=== PATIENT | male | born 1950 | race Caucasian/White ===

== ENCOUNTER 2024-05-16 09:56 | Outpatient (REF) | payer OTHER, SELFPAY | END 2024-05-16 09:57 | disposition home or self-care (01) | LOC: CF 09:56 | DX: Z13.89 Encounter for screening for other disorder (principal) ==

== ENCOUNTER 2024-06-07 10:25 | Outpatient (AMB) | payer OTHER, SELFPAY ==
--- NOTE | 2024-06-07 10:43 | A.OFFVIS_ITS ---
Vital Signs 06/07/24 10:52 Height 6 ft 3 in Weight 236 lb 15.951 oz BMI 29.6 BP 128/67 Blood Pressure Location Rt brachial Position Sitting Pulse 67 Pulse Source Doppler Pulse Oximetry (%) 97 Oxygen Delivery Method Room Air Intake Visit Reasons: asbestosis Allergies No Known Allergies Allergy (Verified 06/07/24 10:55) HPI HPI asbestosis: Details: 73-year-old gentleman, former approximately 20 pack-year smoker, quit over 30 years prior with underlying history of asbestos exposure in the [place] and known asbestosis on CT chest referred for pulmonary follow-up. Patient complains of dyspnea on exertion when going up stairs, but not on level ground. He denies prior personal history of lung disease. He has been using Wixela and albuterol MDI with no significant effect on his dyspnea on exertion. He also been using Flonase and Singulair for underlying environmental allergies. [facility] Social History (Updated 06/07/24 @ 10:57 by Mariola Turcios Jacob) Patient Tobacco Use Status: Former Tobacco user Years Smoked: quit smoking in the 80's Review of Systems Const Denies daytime sleepiness, Denies excessive sweating, Denies fatigue, Denies fever(s), Denies lethargy, Denies malaise, Denies night sweats, Denies snoring and Denies weight loss Eyes Denies blurry vision and Denies itchy eyes ENT Denies nasal congestion, Denies post nasal drip, Denies sinus pain, Denies sinus pressure and Denies other ( Thrush) Card Denies chest pain, Denies pedal edema, Denies dyspnea, Reports dyspnea on exertion, Denies orthopnea and Denies paroxysmal nocturnal dyspnea Resp Denies cough, Denies hemoptysis, Denies excessive phlegm production, Denies dyspnea, Reports dyspnea on exertion, Denies snoring and Denies wheezing GI Denies abdominal pain and Denies heartburn Musc Denies myalgias, Denies arthralgias and Denies joint swelling Skin/Breast Denies rash Neuro Denies memory loss and Denies seizure-like activity Psych Denies abnormal sleep pattern, Denies anxiety and Denies memory loss Endo Denies excessive sweating, Denies fatigue and Denies heat intolerance Bon/Lymph Denies easy bruising Aller/Immun Denies itchy eyes, Denies seasonal rhinorrhea and Denies wheezing Physical Exam Vital Signs: Last Vital Signs Pulse 67 06/07/24 10:52 BP 128/67 06/07/24 10:52 Pulse Ox 97 06/07/24 10:52 Oxygen Delivery Method Room Air 06/07/24 10:52 BMI result Body Mass Index 29.6 Const General: no acute distress and alert Nutritional Appearance: not obese Orientation/consciousness: Other orientation findings ( oriented) HEENT Head: Yes atraumatic Eyes General: appearance normal, both eyes and all related structures Sclerae: sclerae normal EOM: EOMs intact bilaterally Neck Neck: Yes supple Lymphatic: no lymphadenopathy noted Resp Effort & Inspection: normal respiratory effort and no use of accessory muscles Auscultation: clear to auscultation bilaterally Cardio Rate: regular rate Rhythm: regular rhythm Heart sounds: no gallops, no murmurs and no rubs Skin General skin exam: other ( warm) Extrem General: No clubbing, No cyanosis and No edema Assessment & Plan Assessment & Plan (1) Asbestosis: Code(s): 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 Will obtain full PFT. Continue Wixela and albuterol MDI as needed. (2) Environmental allergies: Code(s): Z91.09 - Other allergy status, other than to drugs and biological substances Category: Medical Plan: Reasonably controlled on Flonase and Singulair. Continue current regimen. (3) Dyspnea on exertion: Code(s): R06.09 - Other forms of dyspnea Category: Medical Plan: Unclear etiology. Will await results of pulmonary function testing. 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
[2024-06-07 10:52] VITALS: BP 128/67; PULSE 67; O2SAT 97; BMI 29.6
== END 2024-06-07 11:14 | disposition home or self-care (01) ==
LOC: HO.HPS 10:26
PROVIDERS: PCP Family Medicine; Visit Provider Internal Medicine Pulmonary Disease
DX: J61 Pneumoconiosis due to asbestos and other mineral fibers (principal); Z91.09 Other allergy status, other than to drugs and biological substances; R06.09 Other forms of dyspnea
CPT/HCPCS: 99204

== ENCOUNTER → 2024-06-07 10:25 | Outpatient (BNVA) | payer OTHER, SELFPAY | PROVIDERS: PCP Family Medicine; Visit Provider Internal Medicine Pulmonary Disease | DX: J61 Pneumoconiosis due to asbestos and other mineral fibers (principal); R06.09 Other forms of dyspnea; Z91.09 Other allergy status, other than to drugs and biological substances; Z87.891 Personal history of nicotine dependence | CPT/HCPCS: 99202 ==

== ENCOUNTER 2024-06-29 09:00 | Outpatient (REF) | payer OTHER, SELFPAY ==
--- NOTE | 2024-06-29 09:00 | PFT_ITS ---
Flows: FEV1: 61 % of predicted at 2.17 L FVC: 77 % of predicted at 3.70 L FEV1/FVC: 59 % Bronchodilator response: Absent Volumes: Total lung capacity: 65 % of predicted at 5.40 L Residual volume: 62 % of predicted at 1.94 L Slow vital capacity: 69 % of predicted at 3.47 L Expiratory reserve volume: 86 % of predicted at 1.35 L Diffusion capacity: Mildly decreased, corrects to normal after adjustment for alveolar ventilation. 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 Decreased diffusion capacity suggests emphysema. MTDD
[2024-06-29 10:33] VITALS: PULSE 66; O2SAT 98
== END 2024-06-29 09:01 | disposition home or self-care (01) ==
LOC: HO.RESP 09:00
PROVIDERS: Visit Provider Internal Medicine Pulmonary Disease
DX: J61 Pneumoconiosis due to asbestos and other mineral fibers (principal)
CPT/HCPCS: 94010; 94640; 94727; 94729

== ENCOUNTER 2024-07-01 08:50 | Outpatient (AMB) | payer OTHER, SELFPAY ==
[2024-07-01 09:12] VITALS: BP 140/77; PULSE 61; O2SAT 97; BMI 28.9
--- NOTE | 2024-07-01 09:12 | A.OFFVIS_ITS ---
Vital Signs 07/01/24 09:12 Height 6 ft 3 in Weight 231 lb BMI 28.9 BP 140/77 H Blood Pressure Location Rt brachial Position Sitting Pulse 61 Pulse Source Doppler Pulse Oximetry (%) 97 Oxygen Delivery Method Room Air Intake Visit Reasons: Asbestosis/PFT Follow Up Allergies No Known Allergies Allergy (Verified 07/01/24 09:15) HPI HPI Asbestosis/PFT Follow Up: Details: 73-year-old gentleman, former approximately 20 pack-year smoker, quit over 30 years prior with underlying history of asbestos exposure in the [place] and known asbestosis on CT chest referred for pulmonary follow-up. Patient complains of dyspnea on exertion when going up stairs, but not on level ground. He denies prior personal history of lung disease. He has been using Wixela and albuterol MDI with no significant effect on his dyspnea on exertion. He also been using Flonase and Singulair for underlying environmental allergies. After the last office visit patient has completed his pulmonary function testing that showed combined moderate obstructive and restrictive ventilatory defect with minimal bronchodilator response. His symptoms have been stable. [facility] Social History (Updated 06/07/24 @ 10:57 by Mariola Turcios Jacob) Patient Tobacco Use Status: Former Tobacco user Years Smoked: quit smoking in the 80's Review of Systems Const Denies daytime sleepiness, Denies excessive sweating, Denies fatigue, Denies fever(s), Denies lethargy, Denies malaise, Denies night sweats, Denies snoring and Denies weight loss Eyes Denies blurry vision and Denies itchy eyes ENT Denies nasal congestion, Denies post nasal drip, Denies sinus pain, Denies sinus pressure and Denies other ( Thrush) Card Denies chest pain, Denies pedal edema, Denies dyspnea, Reports dyspnea on exertion, Denies orthopnea and Denies paroxysmal nocturnal dyspnea Resp Denies cough, Denies hemoptysis, Denies excessive phlegm production, Denies dyspnea, Reports dyspnea on exertion, Denies snoring and Denies wheezing GI Denies abdominal pain and Denies heartburn Musc Denies myalgias, Denies arthralgias and Denies joint swelling Skin/Breast Denies rash Neuro Denies memory loss and Denies seizure-like activity Psych Denies abnormal sleep pattern, Denies anxiety and Denies memory loss Endo Denies excessive sweating, Denies fatigue and Denies heat intolerance Bon/Lymph Denies easy bruising Aller/Immun Denies itchy eyes, Denies seasonal rhinorrhea and Denies wheezing Physical Exam Vital Signs: Last Vital Signs Pulse 61 07/01/24 09:12 BP 140/77 H 07/01/24 09:12 Pulse Ox 97 07/01/24 09:12 Oxygen Delivery Method Room Air 07/01/24 09:12 BMI result Body Mass Index 28.9 Const General: no acute distress and alert Nutritional Appearance: not obese Orientation/consciousness: Other orientation findings ( oriented) HEENT Head: Yes atraumatic Eyes General: appearance normal, both eyes and all related structures Sclerae: sclerae normal EOM: EOMs intact bilaterally Neck Neck: Yes supple Lymphatic: no lymphadenopathy noted Resp Effort & Inspection: normal respiratory effort and no use of accessory muscles Auscultation: clear to auscultation bilaterally Cardio Rate: regular rate Rhythm: regular rhythm Heart sounds: no gallops, no murmurs and no rubs Skin General skin exam: other ( warm) Extrem General: No clubbing, No cyanosis and No edema Assessment & Plan Assessment & Plan (1) Asbestosis: Code(s): 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 Continue on empiric Wixela 500 and albuterol MDI. (2) Dyspnea on exertion: Code(s): R06.09 - Other forms of dyspnea Category: Medical Plan: Does have pulmonary contribution, however symptoms out of proportion with pulmonary limitation. Will obtain cardiopulmonary exercise test for further evaluation. Orders: Orders CA cardiopulmonary stress test Today R06.09 - Other forms of dyspnea Coding Level of Care Code Est Pt Level 4 (08082) Diagnoses Asbestosis J61 Dyspnea on exertion R06.09
== END 2024-07-01 09:33 | disposition home or self-care (01) ==
PROVIDERS: PCP Family Medicine; Visit Provider Internal Medicine Pulmonary Disease
DX: J61 Pneumoconiosis due to asbestos and other mineral fibers (principal); R06.09 Other forms of dyspnea
CPT/HCPCS: 99214

== ENCOUNTER → 2024-07-01 08:50 | Outpatient (BNVA) | payer OTHER, SELFPAY | PROVIDERS: PCP Family Medicine; Visit Provider Internal Medicine Pulmonary Disease | DX: J61 Pneumoconiosis due to asbestos and other mineral fibers (principal); R06.09 Other forms of dyspnea; Z87.891 Personal history of nicotine dependence; Z57.5 Occupational exposure to toxic agents in other industries; Z91.85 Personal history of military service | CPT/HCPCS: 99212 ==

== ENCOUNTER 2024-08-12 09:13 | Outpatient (AMB) | payer OTHER, SELFPAY ==
[2024-08-12 09:17] VITALS: BP 138/76; PULSE 79; O2SAT 97
--- NOTE | 2024-08-12 09:17 | A.OFFVIS_ITS ---
Vital Signs 08/12/24 09:17 Weight 232 lb 9.403 oz BP 138/76 Blood Pressure Location Rt brachial Position Sitting Pulse 79 Pulse Source Pulse Oximeter Pulse Oximetry (%) 97 Oxygen Delivery Method Room Air Intake Visit Reasons: Asbestosis Allergies No Known Allergies Allergy (Verified 08/12/24 09:20) Medication List - Last Reconciled 08/12/24 by Milagros Deshpande LPN albuterol sulfate 90 mcg/actuation inhalation atorvastatin 20 mg PO DAILY famotidine 40 mg PO BID fluticasone propion-salmeterol 500-50 mcg/dose (Wixela Inhub) 1 inh inhalation BID fluticasone propionate 50 mcg/actuation sprays intranasal montelukast 10 mg PO DAILY pantoprazole 40 mg PO BID HPI HPI Asbestosis: Details: 73-year-old gentleman, former approximately 20 pack-year smoker, quit over 30 years prior with underlying history of asbestos exposure in the [place] and known asbestosis on CT chest referred for pulmonary follow-up. Patient complains of dyspnea on exertion when going up stairs, but not on level ground. He denies prior personal history of lung disease. He has been using Wixela and albuterol MDI with no significant effect on his dyspnea on exertion. He also been using Flonase and Singulair for underlying environmental allergies. His pulmonary function test showed moderate obstructive and restrictive ventilatory defect with minimal bronchodilator response. After the last office visit patient has completed his cardiopulmonary exercise test that shows at least 50% ventilatory reserve with exercise, however significant decrease in aerobic capacity that appears to be attributed to respiratory muscle weakness/deconditioning. [facility] Social History (Updated 06/07/24 @ 10:57 by Mariola Turcios [facility]) Patient Tobacco Use Status: Former Tobacco user Years Smoked: quit smoking in the 80's Review of Systems Const Denies daytime sleepiness, Denies excessive sweating, Denies fatigue, Denies fever(s), Denies lethargy, Denies malaise, Denies night sweats, Denies snoring and Denies weight loss Eyes Denies blurry vision and Denies itchy eyes ENT Denies nasal congestion, Denies post nasal drip, Denies sinus pain, Denies sinus pressure and Denies other ( Thrush) Card Denies chest pain, Denies pedal edema, Denies dyspnea, Reports dyspnea on exertion, Denies orthopnea and Denies paroxysmal nocturnal dyspnea Resp Denies cough, Denies hemoptysis, Denies excessive phlegm production, Denies dyspnea, Reports dyspnea on exertion, Denies snoring and Denies wheezing GI Denies abdominal pain and Denies heartburn Musc Denies myalgias, Denies arthralgias and Denies joint swelling Skin/Breast Denies rash Neuro Denies memory loss and Denies seizure-like activity Psych Denies abnormal sleep pattern, Denies anxiety and Denies memory loss Endo Denies excessive sweating, Denies fatigue and Denies heat intolerance Bon/Lymph Denies easy bruising Aller/Immun Denies itchy eyes, Denies seasonal rhinorrhea and Denies wheezing Physical Exam Vital Signs: Last Vital Signs Pulse 79 08/12/24 09:17 BP 138/76 08/12/24 09:17 Pulse Ox 97 08/12/24 09:17 Oxygen Delivery Method Room Air 08/12/24 09:17 Const General: no acute distress and alert Nutritional Appearance: not obese Orientation/consciousness: Other orientation findings ( oriented) HEENT Head: Yes atraumatic Eyes General: appearance normal, both eyes and all related structures Sclerae: sclerae normal EOM: EOMs intact bilaterally Neck Neck: Yes supple Lymphatic: no lymphadenopathy noted Resp Effort & Inspection: normal respiratory effort and no use of accessory muscles Auscultation: clear to auscultation bilaterally Cardio Rate: regular rate Rhythm: regular rhythm Heart sounds: no gallops, no murmurs and no rubs Skin General skin exam: other ( warm) Extrem General: No clubbing, No cyanosis and No edema Assessment & Plan Assessment & Plan (1) Asbestosis: Code(s): 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 Continue current regimen. (2) Dyspnea on exertion: Code(s): R06.09 - Other forms of dyspnea Category: Medical Plan: Results of cardiopulmonary exercise test reviewed, no significant pulmonary limitation as patient has at least 45% ventilatory reserve. Does have underlying deconditioning. Patient has been advised on gradated exercise program and offered pulmonary rehab that patient wants to think about. Coding Level of Care Code Est Pt Level 4 (32675) Diagnoses Asbestosis J61 Dyspnea on exertion R06.09
--- OUTSIDE RECORDS SUMMARY | 2024-08-12 09:34 | XMS_ITS | Continuity of Care Document ---
Author Name [facility] Organization [facility] Care Team Providers Care Metal Fitter Name Role Phone [facility] Unavailable Unavailable Problems Combined list of problems from Department of Defense and Veterans Affairs facilities. It does not include entries that were removed or entered in error. Problem Status Onset Date Problem Type Date of Resolution Comments Source Admits alcohol use Active Condition S ep 2023 Entered By: VENECIA MOSQUERA Comment: 8 drinks/week [facility] Bilateral hearing loss Active Condition Apr 19, 2024 Entered By: VENECIA MOSQUERA Comment: no hearing aidsSep 2023 Entered By: VENECIA MOSQUERA Comment: hx noise exposure [facility] Deviated nasal septum Active Condition Apr 19, 2024 Entered By: VENECIA MOSQUERA Comment: secondary to nasal fracture [facility] Ex-smoker Active Condition Feb 02 Entered By: FLACA STEVE Comment: 1PPD x 20 years quit 1993 [facility] Gastroesophageal reflux disease Active Condition [facility] History of asbestos exposure Active Condition Apr 21 24 Entered By: VENECIA MOSQUERA Comment: with chronic respiratory symptoms [facility] History of surgery Active Condition S ep 2023 Entered By: VENECIA MOSQUERA Comment: arthroscopy b/l shouldersSep 2023 Entered By: VENECIA MOSQUERA Comment: left wrist fracture with ORIF 2021, has plate Apr 19, 2024 Entered By: VENECIA MOSQUERA Comment: tonsillectomy childhoodSep 2023 Entered By: VENECIA MOSQUERA Comment: cholecystectomy [facility] OA - Osteoarthritis Active Condition Apr 19, 2024 Entered By: VENECIA MOSQUERA Comment: b/l shoulders, neck, mid/lower back [facility] Perennial allergic rhinitis Active Condition [facility] Secondary erectile dysfunction Active Condition [facility] Tinnitus Active Condition Apr 21 24 Entered By: VENECIA MOSQUERA Comment: hx noise exposure [facility] Under care of multiple providers Active Condition Sep 13, 024 Entered By: VENECIA MOSQUERA Comment: Community PCP - [facility]. Margarito Armstrong [facility] 2023 Entered By: VENECIA MOSQUERA Comment: [facility] Pleural effusion Inactive Condition 04/18/2024 Ju n 2014 Entered By: FLACA STEVE Comment: 2015 Entered By: FLACA STEVE Comment: resolved on own [facility] Shingles Inactive Condition 04/18/2024 [facility] Diagnosis: ICD-10-CM Z23 Encounter for immunization Active Diagnosis [place] Diagnosis: ICD-10-CM M19.90 Unspecified osteoarthritis, unspecified site Active Diagnosis [facility] Medications Combined list of outpatient medications from Department of Defense and Veterans Affairs facilities.Medications provided include 1) outpatient medications from the last 15 months, and 2) patient-reported medications. Medication Details Route Status Patient Instructions Prescription Expires Prescription Number Last Dispense Date Ordering Provider Order Date Order Qty Source ALBUTEROL 90MCG/ACTUA T (CFC-F) INHL,ORAL,8 .5GM DOSE COUNTER INHALE 1 TO 2 PUFFS BY MOUTH EVERY 6 HOURS NEEDED FOR [place] RESPIR ATORY (INHAL ATION) ACTIVE 04/20/2025 [id number] 4 Justyn MOSQUERA 2023 3 IELD FAMOTIDINE 40MG TAB TAKE ONE TABLET BY MOUTH TWICE DAILY FOR STOMACH ACID ORAL ACTIVE 04/20/2025 [id number] 4 Justyn MOSQUERA 2023 180 [place] FEXOFENADIN E HCL 180MG TAB TAKE ONE TABLET BY MOUTH ONCE DAILY FOR ALLERGIE S ORAL ACTIVE 04/20/2025 [id number] 4 Justyn MOSQUERA 2023 90 [place] FLUTICASONE 500MCG/SALM ETEROL 50MCG INHL,ORAL,D ISKUS,60 INHALE 1 PUFF BY MOUTH TWICE DAILY FOR CONTROLL ER MEDICATI ON - RINSE MOUTH AFTER USE RESPIR ATORY (INHAL ATION) ACTIVE 04/19/2025 [id number] 4 Justyn MOSQUERA 2023 3 [place] IBUPROFEN 800MG TAB TAKE ONE TABLET BY MOUTH EVERY 8 HOURS NEEDED FOR PAIN TAKE WITH FOOD ORAL ACTIVE 04/20/2025 [id number] 4 Justyn MOSQUERA 2023 270 [place] MONTELUKAST NA 10MG TAB TAKE ONE TABLET BY MOUTH AT BEDTIME FOR ASTHMA ORAL ACTIVE 04/20/2025 [id number] 4 Justyn MOSQUERA 2023 90 [place] PANTOPRAZOL E NA 40MG TAB,EC TAKE ONE TABLET BY MOUTH TWICE DAILY BEFORE A MEAL FOR EXCESSIV E PRODUCTI ON OF STOMACH ACID ORAL ACTIVE 04/20/2025 [id number] 4 Justyn MOSQUERA 2023 180 [place]ELD SILDENAFIL CITRATE 50MG TAB TAKE ONE TABLET BY MOUTH ONCE DAILY NEEDED FOR ERECTILE DYSFUNCT ION TAKE 1 HOUR PRIOR TO SEXUAL ACTIVITY ORAL ACTIVE 04/19/2025 [id number] 4 Justyn MOSQUERA 2023 18 [place] Immunizations Combined list of available immunizations from the Department of Defense and Veterans Affairs facilities. Immunization Series Date Given Administered By Site Reaction Lot Number CVX Code Drug Rural Route Mail Carrier Status Comments Source COVID-19 (MODERNA), MRNA, LNP-S, PF, 50 MCG/0.5 ML (AGES 12+ YEARS) 2023 TAMARA RIVERO LEFT DELTO ID [id number] 312 complet ed [place] INFLUENZA, HIGH-DOSE, TRIVALENT, PF 2023 TAMARA RIVERO LEFT DELTO ID [id number] 135 complet ed [facility] PNEUMOCOCCAL POLYSACCHARID E PPV23 2023 33 complet ed [facility] COVID-19 (MODERNA), MRNA, LNP-S, PF, 100 MCG/0.5 ML DOSE 2 2020 207 complet ed MOD; [id number]; 1 [facility] COVID-19 (MODERNA), MRNA, LNP-S, PF, 100 MCG/0.5 ML DOSE 1 2020 207 complet ed MOD; [id number]; 1 [facility] FLU,3 YRS (HISTORICAL) 2015 88 complet ed Site: Left Deltoid [place] FLU,3 YRS (HISTORICAL) 2013 88 complet ed immunizat ion record [facility] ZOSTER (HISTORICAL) 2012 121 complet ed IMMUNIZAT ION RECORD [facility] DTAP, UNSPECIFIED FORMULATION 2006 107 complet ed IMMUNIZAT ION RECORD [facility] TET-DIP-A/PER TUSSIS (HISTORICAL) 2006 139 complet ed immunizat ion record [facility] Results Combined list of recent chemistry, hematology and other laboratory results from Department of Defense and Veterans Affairs, ranging from 15 months to all on record, depending upon the facility. Order Name Results Value Reference Range Date Interpretation Specimen Comments Source TSH THYROTROPIN [UNITS/VOLU ME] IN SERUM OR PLASMA 2.91 u[IU]/ mL 0.35 - 5.00 04/22 Specimen Type: SERUM No comment entered. Ordering Provider: LAYLA MOSQUERA Report Released Date/Time: Apr 18, 2024 03:12 PM Reporting Lab[facility] [address] Performing Lab: [address] [address] [place] HEMOGLOBI N A1C PANEL HEMOGLOBIN A1C/HEMOGLO BIN.TOTAL IN BLOOD BY HPLC 5.0 4.0 - 5.6 04/22 Specimen Type: BLOOD Comment: Values obtained from A1C measurement s can vary. For atypical A1C assays, a reported value of 7.0 could actually be between 6.72 and 7.28 if measured by a reference method. A reported value of 9.0 could actually be between 8.73 and 9.27. Ref: http://www. ngsp.org/[place] Pdata.asp Ordering Provider: LAYLA MOSQUERA Report Released Date/Time: Apr 18, 2024 03:12 PM Reporting Lab: [address] [address] Performing Lab: [address] [address] [place] VITAMIN D (25-OH) 25-HYDROXYV ITAMIN D3 [MASS/VOLUM E] IN SERUM OR PLASMA 27 ng/mL 20 - 50 04/22 Specimen Type: SERUM No comment entered. Ordering Provider: LAYLA MOSQUERA Report Released Date/Time: Apr 18, 2024 03:12 PM Reporting Lab: [address] [address] Performing Lab: [address] [address] [place] CBC LEUKOCYTES [#/VOLUME] IN BLOOD BY AUTOMATED COUNT 5.27 10*3/u L 4.50 - 11.00 04/22 Specimen Type: BLOOD No comment entered. Ordering Provider: LAYLA MOSQUERA Report Released Date/Time: Apr 18, 2024 03:12 PM Reporting Lab: [address] [address] Performing Lab: [address] [address] [place] CBC ERYTHROCYTE S [#/VOLUME] IN BLOOD BY AUTOMATED COUNT 4.49 10*6/u L 4.23 - 5.66 04/22 Specimen Type: BLOOD No comment entered. Ordering Provider: LAYLA MOSQUERA Report Released Date/Time: Apr 18, 2024 03:12 PM Reporting Lab: [facility] [address] [facility] [address] Performing Lab: [facility] [address] [address] [place] CBC HEMOGLOBIN [MASS/VOLUM E] IN BLOOD 15.0 g/dL 12.8 - 17 04/22 Specimen Type: BLOOD No comment entered. Ordering Provider: LAYLA MOSQUERA Report Released Date/Time: Apr 18, 2024 03:12 PM Reporting Lab: [facility] [address] [address] Performing Lab: [facility]N [facility] [address] [place] CBC HEMATOCRIT [VOLUME FRACTION] OF BLOOD BY AUTOMATED COUNT 42.0 39.2 - 50.4 04/22 Specimen Type: BLOOD No comment entered. Ordering Provider: LAYLA MOSQUERA Report Released Date/Time: Apr 18, 2024 03:12 PM Reporting Lab: [facility] [address] Performing Lab: [facility] [address] [address] [place] CBC MCV [ENTITIC VOLUME] BY AUTOMATED COUNT 93.5 fL 82 - 99 04/22 Specimen Type: BLOOD No comment entered. Ordering Provider: LAYLA MOSQUERA Report Released Date/Time: Apr 18, 2024 03:12 PM Reporting Lab: [facility] [place] [address] [address] Performing Lab: [facility]AMTRN [facility] [address] [address] [place] CBC MCHC [MASS/VOLUM E] BY AUTOMATED COUNT 35.7 g/dL 30.8 - 35.1 04/22 H Specimen Type: BLOOD No comment entered. Ordering Provider: LAYLA MOSQUERA Report Released Date/Time: Apr 18, 2024 03:12 PM Reporting Lab: [facility] [address] [address] Performing Lab: [facility] [place] [facility] [address] [facility] [address] [place] CBC PLATELETS [#/VOLUME] IN BLOOD BY AUTOMATED COUNT 212 10*3/u L 140 - 360 04/22 Specimen Type: BLOOD No comment entered. Ordering Provider: LAYLA MOSQUERA Report Released Date/Time: Apr 18, 2024 03:12 PM Reporting Lab: [facility] [place] [facility] [address] [facility] [address] Performing Lab: [place] [facility] [place] [address] [address] [place] CBC ERYTHROCYTE DISTRIBUTIO N WIDTH [RATIO] BY AUTOMATED COUNT 12.7 12.0 - 16.0 04/22 Specimen Type: BLOOD No comment entered. Ordering Provider: LAYLA MOSQUERA Report Released Date/Time: Apr 18, 2024 03:12 PM Reporting Lab: [facility] [place] [address] [address] Performing Lab: [facility] [place] [address] [address] [place] CBC MCH [ENTITIC MASS] BY AUTOMATED COUNT 33.4 pg 26.2 - 32.6 04/22 H Specimen Type: BLOOD No comment entered. Ordering Provider: LAYLA MOSQUERA Report Released Date/Time: Apr 18, 2024 03:12 PM Reporting Lab: [facility] [place] [address] [address] Performing Lab: [facility] [place] [address] [address] [place] LIPID PANEL FASTING CHOLESTEROL [MASS/VOLUM E] IN SERUM OR PLASMA 141 mg/dL 04/22 Specimen Type: SERUM No comment entered. Ordering Provider: LAYLA MOSQUERA Report Released Date/Time: Apr 18, 2024 03:12 PM Reporting Lab: [facility] [address] Performing Lab: [facility] [place] [address] [address] [place] LIPID PANEL FASTING TRIGLYCERID E [MASS/VOLUM E] IN SERUM OR PLASMA 195 mg/dL 0 - 150 04/22 H Specimen Type: SERUM No comment entered. Ordering Provider: LAYLA MOSQUERA Report Released Date/Time: Apr 18, 2024 03:12 PM Reporting Lab: [address] [address] Performing Lab: [address] [address] [place] LIPID PANEL FASTING CHOLESTEROL IN LDL [MASS/VOLUM E] IN SERUM OR PLASMA BY CALCULATION 61 mg/dL 0 - 129 04/22 Specimen Type: SERUM No comment entered. Ordering Provider: LAYLA MOSQUERA Report Released Date/Time: Apr 18, 2024 03:12 PM Reporting Lab: [address] [address] Performing Lab: [address] [address] [place] LIPID PANEL FASTING CHOLESTEROL .TOTAL/CHOL ESTEROL IN HDL [MASS RATIO] IN SERUM OR PLASMA 3.4 04/22 Specimen Type: SERUM No comment entered. Ordering Provider: LAYLA MOSQUERA Report Released Date/Time: Apr 18, 2024 03:12 PM Reporting Lab: [address] [address] Performing Lab: [address] [address] [place] LIPID PANEL FASTING CHOLESTEROL IN HDL [MASS/VOLUM E] IN SERUM OR PLASMA 41 mg/dL 40 - 60 04/22 Specimen Type: SERUM No comment entered. Ordering Provider: LAYLA MOSQUERA Report Released Date/Time: Apr 18, 2024 03:12 PM Reporting Lab: [address] [address] Performing Lab: [address] [address] [place] BASIC METABOLIC PANEL (fasting) UREA NITROGEN [MASS/VOLUM E] IN SERUM OR PLASMA 17 mg/dL 7 - 25 04/22 Specimen Type: SERUM No comment entered. Ordering Provider: LAYLA MOSQUERA Report Released Date/Time: Apr 18, 2024 03:12 PM Reporting Lab: [address] [address] Performing Lab: [address] [address] [place] BASIC METABOLIC PANEL (fasting) GLUCOSE [MASS/VOLUM E] IN SERUM OR PLASMA 92 mg/dL 65 - 100 04/22 Specimen Type: SERUM No comment entered. Ordering Provider: LAYLA MOSQUERA Report Released Date/Time: Apr 18, 2024 03:12 PM Reporting Lab: [address] [address] Performing Lab: [address] [address] [place] BASIC METABOLIC PANEL (fasting) SODIUM [MOLES/VOLU ME] IN SERUM OR PLASMA 138 mmol/L 135 - 145 04/22 Specimen Type: SERUM No comment entered. Ordering Provider: LAYLA MOSQEURA Report Released Date/Time: Apr 18, 2024 03:12 PM Reporting Lab: [address] [address] Performing Lab: [address] [address] [place] BASIC METABOLIC PANEL (fasting) POTASSIUM [MOLES/VOLU ME] IN SERUM OR PLASMA 4.4 mmol/L 3.5 - 5.0 04/22 Specimen Type: SERUM No comment entered. Ordering Provider: LAYLA MOSQUERA Report Released Date/Time: Apr 18, 2024 03:12 PM Reporting Lab: [address] [address] Performing Lab: [address] [address] [place] BASIC METABOLIC PANEL (fasting) CHLORIDE [MOLES/VOLU ME] IN SERUM OR PLASMA 104 mmol/L 100 - 110 04/22 Specimen Type: SERUM No comment entered. Ordering Provider: LAYLA MOSQUERA Report Released Date/Time: Apr 18, 2024 03:12 PM Reporting Lab: [facility] [address] [facility] [address] Performing Lab: [address] [address] [place] BASIC METABOLIC PANEL (fasting) CARBON DIOXIDE, TOTAL [MOLES/VOLU ME] IN SERUM OR PLASMA 26 meq/L 20 - 30 04/22 Specimen Type: SERUM No comment entered. Ordering Provider: LAYLA MOSQUERA Report Released Date/Time: Apr 18, 2024 03:12 PM Reporting Lab: [address] [address] Performing Lab: [address] [address] [place] BASIC METABOLIC PANEL (fasting) CREATININE [MASS/VOLUM E] IN SERUM OR PLASMA 0.88 mg/dL 0.50 - 1.40 04/22 Specimen Type: SERUM No comment entered. Ordering Provider: LAYLA MOSQUERA Report Released Date/Time: Apr 18, 2024 03:12 PM Reporting Lab: [address] [address] Performing Lab: [address] [address] [place] BASIC METABOLIC PANEL (fasting) GLOMERULAR FILTRATION RATE/1.73 SQ M.PREDICTED [VOLUME RATE/AREA] IN SERUM, PLASMA OR BLOOD BY CREATININE- BASED FORMULA (CKD-EPI 2020) 90 mL/min 60 04/22 Specimen Type: SERUM No comment entered. Ordering Provider: LAYLA MOSQUERA Report Released Date/Time: Apr 18, 2024 03:12 PM Reporting Lab: [address] [address] Performing Lab: [facility] [address] [address] [place] LIVER FUNCTION PROTEIN [MASS/VOLUM E] IN SERUM OR PLASMA 7.2 g/dL 6.0 - 8.3 04/22 Specimen Type: SERUM No comment entered. Ordering Provider: LAYLA MOSQUERA Report Released Date/Time: Apr 18, 2024 03:12 PM Reporting Lab: [facility]TRN [address] [address] Performing Lab: [facility]ING[facility]TRN [facility] [address] [facility] [address] [place] LIVER FUNCTION ALBUMIN [MASS/VOLUM E] IN SERUM OR PLASMA 4.1 g/dL 3.5 - 5.0 04/22 Specimen Type: SERUM No comment entered. Ordering Provider: LAYLA MOSQUERA Report Released Date/Time: Apr 18, 2024 03:12 PM Reporting Lab: [facility] [address] [address] Performing Lab: [facility]N [address] [address] [place] LIVER FUNCTION ALKALINE PHOSPHATASE [ENZYMATIC ACTIVITY/VO LUME] IN SERUM OR PLASMA 76 U/L 40 - 150 04/22 Specimen Type: SERUM No comment entered. Ordering Provider: LAYLA MOSQUERA Report Released Date/Time: Apr 18, 2024 03:12 PM Reporting Lab: [facility] [address] [address] Performing Lab: [facility]N [address] [address] [place] LIVER FUNCTION ASPARTATE AMINOTRANSF ERASE [ENZYMATIC ACTIVITY/VO LUME] IN SERUM OR PLASMA 42 U/L 5 - 34 04/22 H Specimen Type: SERUM No comment entered. Ordering Provider: LAYLA MOSQUERA Report Released Date/Time: Apr 18, 2024 03:12 PM Reporting Lab: [facility] TRN [address] [address] Performing Lab: [facility] [address] [address] [place] LIVER FUNCTION ALANINE AMINOTRANSF ERASE [ENZYMATIC ACTIVITY/VO LUME] IN SERUM OR PLASMA 58 U/L 04/22 H Specimen Type: SERUM No comment entered. Ordering Provider: LAYLA MOSQUERA Report Released Date/Time: Apr 18, 2024 03:12 PM Reporting Lab: [address] [address] Performing Lab: [address] [address] [facility] LIVER FUNCTION BILIRUBIN.T OTAL [MASS/VOLUM E] IN SERUM OR PLASMA 0.7 mg/dL 0.2 - 1.2 04/22 Specimen Type: SERUM No comment entered. Ordering Provider: LAYLA MOSQUERA Report Released Date/Time: Apr 18, 2024 03:12 PM Reporting Lab: [address] [address] Performing Lab: [address] [address] [facility] Vital Signs Combined list of inpatient and outpatient Vital Signs from Department of Defense and Veterans Affairs, ranging from 12 months to all on record, depending upon the facility. Vital Sign Value Date Comments Source SYSTOLIC BLOOD PRESSURE 142 04/18/2024 15:02:00 [place] DIASTOLIC BLOOD PRESSURE 71 04/18/2024 15:02:00 [place] PULSE OXIMETRY 96 04/18/2024 15:02:00 [facility] 237 04/18/2024 15:02:00 [facility] BMI 30kg/m2 04/18/2024 15:02:00 [facility] 75 04/18/2024 15:02[facility] TEMPERATURE 97.9 04/18/2024 15:02:[address] [facility] PULSE 81 04/18/2024 15:02:00 [facility] RESPIRATION 19 04/18/2024 15:02:00 [place] Encounters Combined list of: 1) Encounters from Department of Veterans Affairs facilities going back up to thelast 18 months. 2) Encounters from the Department of Defense facilities going back up to 280 months. Location Location Details Encounter Type Encounter Number Reason For Visit Attending Provider ADM Date DC Date Status Dis[facility] En[facility] [id number] 08[facility]11 [facility] En[facility] [id number] 11/05 [facility] Encounter [id number] [facility] En[facility] [id number] 01/28 [facility] En[facility] [id number] 02/14 [facility] En[facility] [id number] 02/28 [facility] En[facility] [id number] 03/06 [facility] En[facility] [id number] 03/07 [facility] En[facility] [id number] 03/07 [facility] En[facility] [id number] 03/07 [facility] En[facility] [id number] 03/18 [facility] En[facility] [id number] [facility] [place] [facility] [place] OFFICE O/P EST HI 40 MIN [id number] 1BY. 19 Diagnos is: ICD-10- CM M19.90 Unspeci fied osteoar thritis , unspeci fied site
YADIRA MOSQUERA C 04/18 [facility] [place] [facility] [place] AD[place] [id number]. YADIRA MOSQUERA C 04/18 [facility] [place] [facility] [facility] EST MAY X REQ PHY/QHP [id number] Diagnos is: ICD-10- CM Z23 Encount er for immuniz ation<b r/> PURNIMA RIVERO 04/18 [facility] [place] [facility] Outpatient Encounter [id number] 1.06/20 [facility] [place] [facility] Social History Combined list of available smoking, tobacco, and other social history from Department of Defense and Veterans Affairs facilities. Social History Type Response Date Comment Sourc e Tobacco smoking status [place]-TOBACCO FORMER USER 04/18/2024 [facility] [place] [facility] History of tobacco use VA-TOBACCO QUIT 15 YRS OR MORE 04/18/[address] History of tobacco use QUIT TOBACCO USE > 7 YEARS AGO 02/02/2015 [place] Plan of Care List of future care activities from Department of Veterans Affairs facilities. Additional future care activities may be listed in the Assessment and Plan section. Date/Time Care Activity Care Activity Detail Facili ty 10/14/2024 AMBULATORY - MEDICINE AMBULATORY - MEDICI [place]
--- OUTSIDE RECORDS SUMMARY | 2024-08-12 09:35 | XMS_ITS | Encounter Summary ---
Author Name [facility] [place] Address [address] [place] [address] Care Team Providers Care Oven Laborer Name Role Phone VENECIA MOSQUERA Primary Care Provider Unavailabl e Insurance Providers: All historical and current Section Date Range: From patient's date of to the date document was created. This section includes the names of all active insurance providers for the patient. Insurance Provider Type of Coverage Plan Name Start of Policy Coverage End of Policy Coverage Group Number Member ID Insurance Provider's Telephone Number Policy Vo's Name Patient's Relationship to Policy Vo [facility] Oct 05, 2017 [id number] [phone] SU DARNELL SPOUSE [facility] Feb 04, 2013 [id number] SU DARNELL SPOUSE EXPRESS SCRIPTS ([id number]) PRESCRIPT ION [facility] Feb 04, 2018 [id number] SU DARNELL SPOUSE EXPRESS SCRIPTS ([id number]) PRESCRIPT ION [facility] Feb 04, 2018 [id number] SU DARNELL SPOUSE MEDICARE (WNR) MEDICARE (M) PART B December 06, 2015 PART B [id number] YAAKOV DARNELL AM PATIENT MEDICARE (WNR) MEDICARE (M) PART B December 06, 2015 PART B [id number] YAAKOV DARNELL AM PATIENT MEDICARE (WNR) MEDICARE (M) PART A Oct 05, 2014 PART A [id number] YAAKOV DARNELL AM PATIENT MEDICARE (WNR) MEDICARE (M) PART A Oct 05, 2014 PART A [id number] YAAKOV DARNELL AM PATIENT UNICARE MEDICAL EXPENSE (OPT/PROF ) [facility] * Sep 07, 2016 [id number] SU DARNELL SPOUSE UNICARE PREFERRED PROVIDER ORGANIZAT ION (PPO) [facility] * Aug 07, 2006 [id number] SU DARNELL SPOUSE UNICARE PREFERRED PROVIDER ORGANIZAT ION (PPO) [facility] N Aug 07, 2006 [id number] SU DARNELL SPOUSE Selected Encounter This section includes the information on record at [place] for the Encounter. Date/Time Encounter Type Encounter Description Reason Pro vider Source Jan 29, 2024 09:49 AM Outpatient Encounter ADMIN PAT ACTIVTIES (MASNONCT) IHE Encounter Template Text not used by [place] Plan of Treatment: Future Appointments (+ 6 months) and Future Tests (+/- 45 days) The Plan of Treatment section includes future care activities for the patient from all [place] treatmentfacilities. This section includes future appointments and future orders which are active, pending or scheduled. Future Appointments This section includes appointments that were scheduled to occur 6 months from the date of the Encounter, up to a maximum of 20 appointments. The data comes from all [place] treatment facilities. Appointment Date/Time Appointment Type Appointme nt Facility Name Apr 18, 2024 03:00 PM AMBULATORY - MEDICINE [facility] Apr 30, 2024 09:00 AM AMBULATORY - NONE [place] [facility] Apr 30, 2024 09:30 AM AMBULATORY - NONE [place] [facility] [place] [facility] Jun 07, 2024 08:00 AM AMBULATORY - MEDICINE [place] [facility] Encounter Notes: All associated encounter notes This section contains the clinical notes associated to the Encounter. Date/Time Encounter Note(s) Provider Source Jan 30, 2024 05:17 PM ADDENDUM: LOCAL TITLE: Addendum STANDARD TITLE: ADDENDUM DATE OF NOTE: JAN 30, 2024@17:17:52 ENTRY DATE: JAN 30, 2024@17:17:53 AUTHOR: LUPILLO QUIÑONES COSIGNER: URGENCY: STATUS: COMPLETED Please call to establish care in [place]. /michael/ LUPILLO QUIÑONES HEALTH CARE ADMINISTRATOR [place] Signed: 01/30/2024 17:18 Receipt Acknowledged By: 02/15/2024 15:00 /es/ BAKARI ZEPEDA MSN Ed., BSN LEVEL VIAL INSPECTOR AND TESTER NURSE === --- Original Document --- 01/29/24 CCC: SCHEDULING ADMINISTRATION: Patient Demographics Patient Name: JAYNA DARNELL Patient Primary Phone: [phone] Patient Primary Address: [address] [place] [address] Patient : 1950 Patient Age: 73 Call Back Number: [phone] Caller/Recipient Relation to Patient: Self Administrative Administrative Note Reason: Other Administrative Note Comments: requests to be assigned to a PACT at the [facility] and schedule an appt. Please assist. /es/ DILLON GILES ADVANCED BOOK ILLUSTRATOR Signed: 01/29/2024 09:50 Receipt Acknowledged By: 01/29/2024 10:48 /es/ YULIANA JOHNS MSA HEALTH CARE ADMINISTRATORSADAFSHASHA SANJAY 01/30/2024 17:17 /es/ LUPILLO QUIÑONES HEALTH CARE ADMINISTRATOR TERE 02/01/2024 15:49 /es/ STACEY NI HEALTH CARE ADMINISTRATOR BOOK ILLUSTRATOR LUPILLO QUIÑONES [place] [facility] Jan 29, 2024 09:50 AM ADMINISTRATIVE NOTE: LOCAL TITLE: CCC: SCHEDULING ADMINISTRATION STANDARD TITLE: ADMINISTRATIVE NOTE DATE OF NOTE: JAN 29, 2024@09:50 ENTRY DATE: JAN 29, 2024@09:50 AUTHOR: DILLON GILES EXP COSIGNER: URGENCY: STATUS: COMPLETED CCC: SCHEDULING ADMINISTRATION Has ADDENDA Patient Demographics Patient Name: JAYNA DARNELL Patient Primary Phone: [phone] Patient Primary [address]: [address] [place] [address] Patient : 1950 Patient Age: 73 Call Back Number: [phone] Caller/Recipient Relation to Patient: Self Administrative Administrative Note Reason: Other Administrative Note Comments: requests to be assigned to a PACT at the [facility] and schedule an appt. Please assist. /michael/ DILLON GILES ADVANCED BOOK ILLUSTRATOR Signed: 01/29/2024 09:50 Receipt Acknowledged By: 01/29/2024 10:48 /es/ YULIANA JOHNS MSA HEALTH CARE ADMINISTRATOR, [facility] 01/30/2024 17:17 /es/ LUPILLO QUIÑONES HEALTH CARE ADMINISTRATOR TERE 02/01/2024 15:49 /es/ STACEY NI HEALTH CARE ADMINISTRATOR BOOK ILLUSTRATOR 01/30/2024 ADDENDUM STATUS: COMPLETED Please call to establish care in [place]. /michael/ LUPILLO QUIÑONES HEALTH CARE ADMINISTRATOR TERE Signed: 01/30/2024 17:18 Receipt Acknowledged By: * AWAITING SIGNATURE * BAKARI ZEPEDA TAMMY [place] [facility]
--- OUTSIDE RECORDS SUMMARY | 2024-08-12 09:35 | XMS_ITS ---
Author Name [facility] [place] Address [address] [place] [address] Care Team Providers Care Circuit Court Judge Name Role Phone CARMEN PANIAGUA Primary Care Provider Unavailabl e Insurance Providers: [...] Policy Vo [facility] Oct 05, 2017 [id number] [phone] SU DARNELL SPOUSE [facility] Feb 04, 2013 [id number] SU DARNELL SPOUSE EXPRESS SCRIPTS ([id number]) PRESCRIPT ION [facility] Feb 04, 2018 [id number] MANN,SU SPOUSE EXPRESS SCRIPTS ([id number]) PRESCRIPT ION [facility] Feb 04, 2018 [id number] SU DARNELL SPOUSE MEDICARE (WNR) MEDICARE (M) PART B December 06, 2015 PART B [id number] [phone] YAAKOV DARNELL AM PATIENT MEDICARE (WNR) MEDICARE (M) PART B December 06, 2015 PART B [id number] YAAKOV DARNELL AM PATIENT MEDICARE (WNR) MEDICARE (M) PART A Oct 05, 2014 PART A [id number] [phone] YAAKOV DARNELL AM PATIENT MEDICARE (WNR) MEDICARE (M) PART A Oct 05, 2014 PART A [id number] YAAKOV DARNELL AM PATIENT UNICARE MEDICAL EXPENSE (OPT/PROF ) [facility] * Sep 07, 2016 [id number] SU DARNELL SPOUSE UNICARE PREFERRED PROVIDER ORGANIZAT ION (PPO) [facility] * Aug 07, 2006 [id number] SU DARNELL SPOUSE UNICARE PREFERRED PROVIDER ORGANIZAT ION (PPO) [facility] N Aug 07, 2006 [id number] SU DARNELL SPOUSE Selected Encounter This section includes the information on record at [place] for the Encounter. Date/Time Encounter Type Encounter Description Reason Pro vider Source Mar 07, 2024 11:51 AM Outpatient Encounter PRIMARY CARE/MEDICINE IHE Encounter Template Text not used by [place] Plan of Treatment: Future Appointments (+ 6 months) and Future Tests (+/- 45 days) The Plan of Treatment section includes future care activities for the patient from all [place] treatmentfacilities. This section includes future appointments and future orders which are active, pending or scheduled. Future Appointments This section includes appointments that were scheduled to occur 6 months from the date of the Encounter, up to a maximum of 20 appointments. The data comes from all [place] treatment facilities. Appointment Date/Time Appointment Type Appointme nt Facility Name Apr 18, 2024 03:00 PM AMBULATORY - MEDICINE [facility] Apr 30, 2024 09:00 AM AMBULATORY - NONE [place] [facility] Apr 30, 2024 09:30 AM AMBULATORY - NONE [place] [facility] Jun 07, 2024 08:00 AM AMBULATORY - MEDICINE [place] [facility] Active, Pending, and Scheduled Orders This section includes a listing of several types of active, pending, and scheduled orders, including clinic medications orders, diagnostic test orders, procedure orders and consult orders; where the start date of the order is 45 days before the date of the Encounter or 45 days after the date of theEncounter. The data comes from all [place] treatment facilities. Test Date/Time Test Type Test Details Facility Name Apr 18, 2024 12:00 AM Laboratory - Chemi stry Order URINALYSIS URINE SP [facility] Apr 19, 2024 04:05 PM Consult Order COMMUNITY CARE-PULMONARY Cons Promotion Manager's Choice [facility] Encounter Notes: All associated encounter notes This section contains the clinical notes associated to the Encounter. Date/Time Encounter Note(s) Provider Source Mar 07, 2024 11:51 AM LETTERS: LOCAL TITLE: PATIENT LETTER (B) STANDARD TITLE: LETTERS DATE OF NOTE: MAR 07, 2024@11:51 ENTRY DATE: MAR 07, 2024@11:51:42 AUTHOR: DANIEL MILTON EXP COSIGNER: URGENCY: STATUS: COMPLETED [facility] [address] [place] [phone] * [phone] * JAYNA DARNELL [address] [place] [address] Date: MAR 07, 2024 Dear [place]: Welcome to patient aligned care team 7 (PACT 7) with Carmen Paniagua NP. Prior to meeting you at your new patient appointment we are requesting some of your past medical history so that we may provide you with the exceptional care you deserve. Please note that it is very helpful to have these documents at least two days prior to your appointment date as the more information, we have the better we will be able to meet your needs: * Last History & Physical * Immunization records * Medication list * Diagnosis list * Most recent labs * Diagnostic screens (Colonoscopy, Abdominal Aortic Aneurysm screen, Mammograms, PAPS, etc.) You may either drop the requested records off in person to [address] [place] [address] or you may have them faxed to: [phone] ATTN: PACT 7 *Also please complete the enclosed new patient packet and drop it off at our [place] location: [address] [place] [address]* If you have any questions, please do not hesitate to contact the Department of 's Affairs call center at . We look forward to providing your health care! Sincerely, [facility] [address] [place] [phone] * [phone] * DANIEL MILTON TAMA
--- OUTSIDE RECORDS SUMMARY | 2024-08-12 09:35 | XMS_ITS | Encounter Summary ---
Author Name [facility] [place] Address [address] [place] [address] Care Team Providers Care Rv Body Mechanic Name Role Phone VENECIA MOSQUERA Primary Care [...] Policy Vo [facility] Oct 05, 2017 [id number] SU DARNELL SPOUSE [facility] Feb 04, 2013 [id number] SU DARNELL SPOUSE EXPRESS SCRIPTS ([id number]) PRESCRIPT ION [facility] Feb 04, 2018 [id number] [phone] MANN,SU SPOUSE EXPRESS SCRIPTS ([id number]) PRESCRIPT ION [facility] Feb 04, 2018 [id number] SU DARNELL SPOUSE MEDICARE (WNR) MEDICARE (M) PART B December 06, 2015 PART B [id number] YAAKOV DARNELL AM PATIENT MEDICARE (WNR) MEDICARE (M) PART B December 06, 2015 PART B [id number] YAAKOV DARNELL AM PATIENT MEDICARE (WNR) MEDICARE (M) PART A Oct 05, 2014 PART A [id number] YAAKOV DARNELL AM PATIENT MEDICARE (WNR) MEDICARE (M) PART A Oct 05, 2014 PART A [id number] YAAKOV DARNELL AM PATIENT UNICARE MEDICAL EXPENSE (OPT/PROF ) [facility] * Sep 07, 2016 [id number] SU DARNELL SPOUSE UNICARE PREFERRED PROVIDER ORGANIZAT ION (PPO) [facility] * Aug 07, 2006 [id number] SU DARNELL SPOUSE UNICARE PREFERRED PROVIDER ORGANIZAT ION (PPO) [facility] N Aug 07, 2006 [id number] [phone] SU DARNELL SPOUSE Selected Encounter This section includes the information on record at [place] for the Encounter. Date/Time Encounter Type Encounter Description Reason Pro vider Source January 03, 2024 12:00 AM Outpatient Encounter EVENT (HISTORICAL) IHE Encounter Template Text not used by [place] Plan of Treatment: Future Appointments (+ 6 months) and Future Tests (+/- 45 days) The Plan of Treatment section includes future care activities for the patient from all [place] treatmentfacilities. This section includes future appointments and future orders which are active, pending or scheduled. Future Appointments This section includes appointments that were scheduled to occur 6 months from the date of the Encounter, up to a maximum of 20 appointments. The data comes from all [place] treatment facilities. Appointment Date/Time Appointment Type Appointme nt Facility Name Apr 18, 2024 03:00 PM AMBULATORY - MEDICINE [facility] Apr 30, 2024 09:00 AM AMBULATORY - NONE [place] [facility] Apr 30, 2024 09:30 AM AMBULATORY - NONE [facility] Jun 07, 2024 08:00 AM AMBULATORY - MEDICINE [place] [facility] Encounter Notes: All associated encounter notes This section contains the clinical notes associated to the Encounter. Date/Time Encounter Note(s) Provider Source January 03, 2024 12:00 AM NONVA NOTE: LOCAL TITLE: NON-VA OUTPATIENT NOTES STANDARD TITLE: NONVA NOTE DATE OF NOTE: JANUARY 03, 2024 ENTRY DATE: MAY 01, 2024@08:16:44 AUTHOR: DOROTHY RECIO COSIGNER: URGENCY: STATUS: COMPLETED VistA Imaging - Scanned Document SCANNED DOCUMENT SIGNATURE NOT REQUIRED Electronically Filed: 05/01/2024 by: DOROTHY EDMOND PA [facility]
--- OUTSIDE RECORDS SUMMARY | 2024-08-12 09:35 | XMS_ITS | Encounter Summary ---
Author Name [facility] [place] Organization [place] Address [address] [place] [address] Care Team Providers Care Corporate Intern Name Role Phone VENECIA MOSQUERA Primary Care [...] Policy Vo [facility] Oct 05, 2017 [id number] SU DRANELL SPOUSE [facility] Feb 04, 2013 [id number] SU DARNELL SPOUSE EXPRESS SCRIPTS ([id number]) PRESCRIPT ION [facility] Feb 04, 2018 [id number] MANN,SU SPOUSE EXPRESS SCRIPTS ([id number]) PRESCRIPT ION [facility] Feb 04, 2018 [id number] [phone] SU DARNELL SPOUSE MEDICARE (WNR) MEDICARE (M) PART B December 06, 2015 PART B [id number] YAAKOV DARNELL AM PATIENT MEDICARE (WNR) MEDICARE (M) PART B December 06, 2015 PART B [id number] YAAKOV DARNELL AM PATIENT MEDICARE (WNR) MEDICARE (M) PART A Oct 05, 2014 PART A [id number] [phone] YAAKOV DARNELL AM PATIENT MEDICARE (WNR) MEDICARE (M) PART A Oct 05, 2014 PART A [id number] YAAKOV DARNELL AM PATIENT UNICARE MEDICAL EXPENSE (OPT/PROF ) [facility] * Sep 07, 2016 [id number] SU DARNELL SPOUSE UNICARE PREFERRED PROVIDER ORGANIZAT ION (PPO) [facility] * Aug 07, 2006 [id number] SU DARNELL SPOUSE UNICARE PREFERRED PROVIDER ORGANIZAT ION (PPO) [facility] N Aug 07, 2006 [id number] SU DARNELL SPOUSE Selected Encounter This section includes the information on record at [place] for the Encounter. Date/Time Encounter Type Encounter Description Reason Pro vider Source Mar 07, 2024 11:03 AM Outpatient Encounter PRIMARY CARE/MEDICINE IHE Encounter Template Text not used by [place] Plan of Treatment: Future Appointments (+ 6 months) and Future Tests (+/- 45 days) The Plan of Treatment section includes future care activities for the patient from all [place] treatmentfacilities. This section includes future appointments and future orders which are active, pending or scheduled. Future Appointments This section includes appointments that were scheduled to occur 6 months from the date of the Encounter, up to a maximum of 20 appointments. The data comes from all [place] treatment facilities. Appointment Date/Time Appointment Type Appointme nt Facility Name Apr 18, 2024 03:00 PM AMBULATORY - MEDICINE [facility] Apr 30, 2024 09:00 AM AMBULATORY - NONE [facility] Apr 30, 2024 09:30 AM AMBULATORY - NONE [place] [facility] Jun 07, 2024 08:00 AM AMBULATORY - MEDICINE [place] C [facility] Active, Pending, [...] of theEncounter. The data comes from all [place] treatment facilities. Test Date/Time Test Type Test Details Facility Name Apr 18, 2024 12:00 AM Laboratory - Chemi stry Order URINALYSIS URINE SP [place] Apr 19, 2024 04:05 PM Consult Order COMMUNITY CARE-PULMONARY Cons Spot Checker's Choice [place] Encounter Notes: All associated encounter notes This section contains the clinical notes associated to the Encounter. Date/Time Encounter Note(s) Provider Source Mar 07, 2024 11:03 AM ADMINISTRATIVE NOT E: LOCAL TITLE: ADMINISTRATIVE NOTE STANDARD TITLE: ADMINISTRATIVE NOTE DATE OF NOTE: MAR 07, 2024@11:03 ENTRY DATE: MAR 07, 2024@11:03:55 AUTHOR: DANIEL MILTON EXP COSIGNER: URGENCY: STATUS: COMPLETED ADMINISTRATIVE NOTE Has ADDENDA This writer editor scheduled a New Patient 60 minute appointment with [facility] on 04/18/2024 at 3:00pm. New patient packet mailed. Outside PCP at [facility], Margarito Armstrong PA-C. /michael/ DANIEL MILTON AMSA Signed: 03/07/2024 11:07 Receipt Acknowledged By: 03/07/2024 12:05 /michael/ ELPIDIO RIVERO LPN LPN 03/08/2024 09:49 /michael/ LAM ALVARADO ADVANCED PIPE CUTTER 03/07/2024 13:03 /es/ ASHLIE CARNES RN REGISTERED NURSE 03/08/2024 ADDENDUM STATUS: COMPLETED AMSA REQUESTED NON VA RECORDS DIRECTED FROM CONTACT LISTED BELOW PCP at [facility], Margarito Armstrong PA-C. [phone] /michael/ LAM ALVARADO ADVANCED PIPE CUTTER Signed: 03/08/2024 09:48 DANIEL MILTON
--- OUTSIDE RECORDS SUMMARY | 2024-08-12 09:35 | XMS_ITS | Encounter Summary ---
Author Name [facility] [place] Address [address] [place] [address] Care Team Providers Care Insolvency Consultant Name Role Phone VENECIA MOSQUERA Primary Care [...] Policy Vo [facility] Oct 05, 2017 [id number] SU DARNELL SPOUSE [facility] Feb 04, 2013 [id number] [phone] SU DARNELL SPOUSE EXPRESS SCRIPTS ([id number]) PRESCRIPT ION [facility] Feb 04, 2018 [id number] MANN,SU SPOUSE EXPRESS SCRIPTS ([id number]) PRESCRIPT ION [facility] Feb 04, 2018 [id number] [phone] SU DARNELL SPOUSE MEDICARE (WNR) MEDICARE (M) PART B December 06, 2015 PART B [id number] YAAKOV DARNELL AM PATIENT MEDICARE (WNR) MEDICARE (M) PART B December 06, 2015 PART B [id number] YAAKOV DARNELL AM PATIENT MEDICARE (WNR) MEDICARE (M) PART A Oct 05, 2014 PART A [id number] YAAKOV DARNELL AM PATIENT MEDICARE (WNR) MEDICARE (M) PART A Oct 05, 2014 PART A [id number] YAAKOV DARNELL AM PATIENT UNICARE MEDICAL EXPENSE (OPT/PROF ) [facility] * Sep 07, 2016 [id number] SU DARNELL SPOUSE UNICARE PREFERRED PROVIDER ORGANIZAT ION (PPO) [facility] * Aug 07, 2006 [id number] SU DARNELL SPOUSE UNICARE PREFERRED PROVIDER ORGANIZAT ION (PPO) [facility] N Aug 07, 2006 [id number] SU DARNELL SPOUSE Selected Encounter This section includes the information on record at [place] for the Encounter. Date/Time Encounter Type Encounter Description Reason Pro vider Source Nov 06, 2023 12:00 AM Outpatient Encounter EVENT (HISTORICAL) IHE Encounter Template Text not used by [place] Plan of Treatment: Future Appointments (+ 6 months) and Future Tests (+/- 45 days) The Plan of Treatment section includes future care activities for the patient from all [place] treatmentfacilities. This section includes future appointments and future orders which are active, pending or scheduled. Future Appointments This section includes appointments that were scheduled to occur 6 months from the date of the Encounter, up to a maximum of 20 appointments. The data comes from all [place] treatment facilities. Appointment Date/Time Appointment Type Appointme nt Facility Name Apr 18, 2024 03:00 PM AMBULATORY - MEDICINE [facility] Apr 30, 2024 09:00 AM AMBULATORY - NONE [place] [facility] Apr 30, 2024 09:30 AM AMBULATORY - NONE [place] [facility]
--- OUTSIDE RECORDS SUMMARY | 2024-08-12 09:35 | XMS_ITS | Encounter Summary ---
Author Name [facility] [place] [facility] [place] Address [address] [place] [id number] Care Team Providers Care Miner Pick Name Role Phone VENECIA MOSQUERA Primary Care [...] Policy Vo [facility] Oct 05, 2017 [id number] [phone] SU DARNELL SPOUSE [facility] STRATEGIES [facility] Feb 04, 2013 [id number] [phone] SU DARNELL SPOUSE EXPRESS SCRIPTS ([id number]) PRESCRIPT ION [facility] Feb 04, 2018 [id number] MANN,SU SPOUSE EXPRESS SCRIPTS ([id number]) PRESCRIPT ION [facility] Feb 04, 2018 [id number] SU DARNELL SPOUSE MEDICARE (WNR) MEDICARE (M) PART B December 06, 2015 PART B [id number] [phone] YAAKOV DARNELL AM PATIENT MEDICARE (WNR) MEDICARE (M) PART B December 06, 2015 PART B [id number] YAAKOV DARNELL AM PATIENT MEDICARE (WNR) MEDICARE (M) PART A Oct 05, 2014 PART A [id number] [phone] YAAKOV DARNELL AM PATIENT MEDICARE (WNR) MEDICARE (M) PART A Oct 05, 2014 PART A [id number] YAAKOV DARNELL AM PATIENT UNICARE MEDICAL EXPENSE (OPT/PROF ) [facility] * Sep 07, 2016 [id number] SU DARNELL SPOUSE UNICARE PREFERRED PROVIDER ORGANIZAT ION (PPO) [facility] * Aug 07, 2006 [id number] SU DARNELL SPOUSE [employer]ARE PREFERRED PROVIDER ORGANIZAT ION (PPO) [facility] N Aug 07, 2006 [id number] [phone] SU DARNELL SPOUSE Selected Encounter This section includes the information on record at [place] for the Encounter. Date/Time Encounter Type Encounter Description Reason Provider Source Apr 18, 2024 03:03 PM IMMUNIZATION ADMIN PRIMARY CARE/MEDICINE ICD-10-CM Z23. Encounter for immunization ULICES MOSQUERA [facility] Encounter Template Text not used by [place] Assessments - Encounter Diagnoses This section includes the primary and secondary diagnoses documented for the Encounter. Date/Time Primary/Secondary Diagnosis Diagnosis Name Provider Source Apr 18, 2024 03:03 PM SECONDARY Encounter for immunization TAMARA RIVERO [facility] Plan of Treatment: Future Appointments (+ 6 months) and Future Tests (+/- 45 days) The Plan of Treatment section includes future care activities for the patient from all [place] treatmentfacilities. This section includes future appointments and future orders which are active, pending or scheduled. Future Appointments This section includes appointments that were scheduled to occur 6 months from the date of the Encounter, up to a maximum of 20 appointments. The data comes from all [place] treatment facilities. Appointment Date/Time Appointment Type Appointme nt Facility Name Apr 30, 2024 09:00 AM AMBULATORY - NONE [facility] Apr 30, 2024 09:30 AM AMBULATORY - NONE [facility] Jun 07, 2024 08:00 AM [facility] [place] [facility] Oct 14, 2024 09:30 AM AMBULATORY - MEDICINE [facility] Active, Pending, and Scheduled Orders This section includes a listing of several types of active, pending, and scheduled orders, including clinic medications orders, diagnostic test orders, procedure orders and consult orders; where the start date of the order is 45 days before the date of the Encounter or 45 days after the date of theEncounter. The data comes from all [place] treatment facilities. Test Date/Time Test Type Test Details Facility Name Apr 18, 2024 12:00 AM Laboratory - Chemi stry Order URINALYSIS URINE SP [facility] Apr 19, 2024 04:05 PM Consult Order COMMUNITY CARE-PULMONARY Cons Production [facility] Lab Results: +/- 30 days of the encounter This section includes the Chemistry and Hematology Lab Results on record with [place] for the patient. Radiology Reports and Pathology Reports are provided separately, in subsequent sections. Lab Results This section contains the Chemistry/Hematology Results that were resulted 30 days before or 30 daysafter the date of the Encounter. Date/Time Source Result Type Result - Unit Interpretation Reference Range Comment Apr 22, 2024 11:10 AM [facility] TSH Specimen Type: SERUM No comment entered. Ordering Provider: VENECIA MOSQUERA Report Released Date/Time: Apr 18, 2024 03:12 PM Reporting Lab: [address] [address] Performing Lab: [address] [address] TSH 2.91 u[IU]/mL 0.35-5.00 Apr 22, 2024 11:10 AM [facility] HEMOGLOBIN A1C PANEL Specimen Type: BLOOD Comment: Values obtained from A1C measurements can vary. For atypical A1C assays, a reported value of 7.0 could actually be between 6.72 and 7.28 if measured by a reference method. A reported value of 9.0 could actually be between 8.73 and 9.27. Ref: http://www.ngs p.org/CAPdata. asp Ordering Provider: VENECIA MOSQUERA Report Released Date/Time: Apr 18, 2024 03:12 PM Reporting [facility]: [facility] [address] [address] Performing [facility]: [facility] [address] [address] HEMOGLOBIN A1C 5.0 4.0-5.6 Apr 22, 2024 11:10 AM [facility] VITAMIN D (25-OH) Specimen Type: SERUM No comment entered. Ordering Provider: VENECIA MOSQUERA Report Released Date/Time: Apr 18, 2024 03:12 PM Reporting [facility]: [facility] [address] [address] Performing Lab: [address] [address] VITAMIN D (25-OH) 27 ng/mL 20-50 Apr 22, 2024 11:10 AM [facility] CBC Specimen Type: BLOOD No comment entered. Ordering Provider: VENECIA MOSQUERA Report Released Date/Time: Apr 18, 2024 03:12 PM Reporting [facility]: [facility] [address] [address] Performing Lab: [facility] [address] [address] WBC 5.27 10*3/uL 4.50-11.00 RBC 4.49 10*6/uL 4.23-5.66 HGB 15.0 g/dL 12.8-17 HCT 42.0 39.2-50.4 MCV 93.5 fL 82-99 MCHC 35.7 g/dL H 30.8-35.1 PLT 212 10*3/uL 140-360 RDW-CV 12.7 12.0-16.0 MCH 33.4 pg H 26.2-32.6 Apr 22, 2024 11:10 AM [facility] LIPID PANEL FASTING Specimen Type: SERUM No comment entered. Ordering Provider: VENECIA MOSQUERA Report Released Date/Time: Apr 18, 2024 03:12 PM Reporting [facility]: [facility] [address] [address] Performing Lab: [address] [address] CHOLESTEROL 141 mg/dL TRIGLYCERIDE 195 mg/dL H 0-150 LDL calculated 61 mg/dL 0-129 CHOL/HDL 3.4 HDL CHOLESTEROL 41 mg/dL 40-60 Apr 22, 2024 11:10 AM [facility] BASIC METABOLIC PANEL (fasting) Specime n Type: SERUM No comment entered. Ordering Provider: VENECIA MOSQUERA Report Released Date/Time: Apr 18, 2024 03:12 PM Reporting Lab: [address] [address] Performing Lab: [address] [address] UREA NITROGEN 17 mg/dL 7-25 GLUCOSE 92 mg/dL 65-100 SODIUM 138 mmol/L 135-145 POTASSIUM 4.4 mmol/L 3.5-5.0 CHLORIDE 104 mmol/L 100-110 CO2 26 meq/L 20-30 CREATININE, Serum 0.88 mg/dL 0.50-1.40 eGFR(CKD-EPI 2020) 90 mL/min >60 Apr 22, 2024 11:10 AM [facility] LIVER FUNCTION Specimen Type: SERUM No comment entered. Ordering Provider: VENECIA MOSQUERA Report Released Date/Time: Apr 18, 2024 03:12 PM Reporting Lab: [address] [address] Performing Lab: [address] [address] PROTEIN,TOTAL 7.2 g/dL 6.0-8.3 ALBUMIN 4.1 g/dL 3.5-5.0 ALKALINE PHOSPHATASE 76 U/L 40-150 AST 42 U/L H 5-34 ALT 58 U/L H BILIRUBIN, TOTAL 0.7 mg/dL 0.2-1.2 Immunizations: All administered on the encounter date This section contains immunizations associated to the Encounter. Immunization Series Date Issued Reaction Comments INFLUENZA, HIGH-DOSE, TRIVALENT, PF Apr 18 Social History: Smoking Status (Most current) and Tobacco Use (All prior to encounter date) This section includes the most current, and the historical, smoking and tobacco- related health factors from the [place] facility where the Encounter took place. Current Smoking Status This section includes the most current smoking, or tobacco-related health factor, from the [place] facility where the Encounter took place. Date/Time Current Smoking Status Comment Elizabeth itjaye Apr 18, 2024 03:03 PM [place]-TOBACCO FORMER USER [facility] Tobacco Use History This section includes a history of the smoking, or tobacco-related health factors, that were collected on or before the date of the Encounter. The data comes from the [place] facility where the Encounter took place. Date/Time Smoking Status/Tobacco Use Comment F acility Apr 18, 2024 03:03 PM [place]-TOBACCO QU[place] 15 YRS OR MORE [facility] Radiology Reports: +/- 30 days of the encounter Radiology Reports For cases when an order for radiology services may have been completed prior to the date of the Encounter, the report list includes the Radiology Reports that were completed up to 30 days before dateof the Encounter. For cases when an order for radiology services may have been completed after the date of the Encounter, the report list also includes the Radiology Reports that were completed up to30 days after date of the Encounter. The data comes from all [place] treatment facilities. Date/Time Radiology Report Provider Source Apr 30, 2024 08:57 AM ULTRASOUND AAA SCREENING: JAYNA DARNELL AROLDO [id number] -1950 M Exm Date: APR 30, 2024@08:57 Req Phys: VENECIA MOSQUERA Loc: CWM/SO/PACT 7 (Req'g Loc) Img Loc: ULTRASOUND Service: Unknown [facility] [address] (Case [id number] COMPLETE) ULTRASOUND AAA SCREENING (US Detailed) CPT:09763 Reason for Study: former smoker, quit 1993, Screening for AAA Clinical History: Some ultrasound tests require a prep. Report Status: Verified Date Reported: APR 30, 2024 Date Verified: APR 30, 2024 Log Inspector E-Sig:/ES/MILA WANG JR Report: Study: AAA screening ultrasound. Comparison: None. Findings: The abdominal aorta is patent. The proximal abdominal aorta measures 2.5 cm AP by 2.6 cm transverse. The mid abdominal aorta measures 2.6 cm AP by 2.7 cm transverse. The distal abdominal aorta measures 2.4 cm AP by 2.3 cm transverse. The iliac arteries are patent and normal in caliber. There is mild calcific atherosclerotic plaque. Impression: Normal aortic caliber. Primary Diagnostic Code: No immediate attention required Secondary Diagnostic Codes: ABDOMINAL AORTIC ANEURYSM NOT PRESENT Primary Interpreting Staff: MILA WANG JR, Radiologist (Log Inspector) /MILA TRAN JR [facility] Apr 30, 2024 08:[address] THORAX W/O CONT: JAYNA DARNELL [id number] -1950 M Exm Date: APR 30, 2024@08:49 Req Phys: VENECIA MOSQUERA Loc: CWM/SO/PACT 7 (Req'g Loc) Img Loc: NHM/CT Service: Unknown [facility] [address] (Case [id number] COMPLETE) CT THORAX W/O CONT (CT Detailed) CPT:33244 Reason for Study: former smoker, quit 1993, + asbestos exposure in Clinical History: chronic dyspnea with minimal exertion, occasional wheezing Report Status: Verified Date Reported: APR 30, 2024 Date Verified: APR 30, 2024 Log Inspector E-Sig:/ES/MILA WANG JR Report: Study: Noncontrast CT scan of the chest. Comparison: CT scan of the chest from February 03, 2016 and February 03, 2015. TECHNIQUE: Contiguous axial [address] imaging is performed from the lung apices through the lung bases without the administration of intravenous contrast as per standard department protocol. Subsequently, sagittal and coronal reformats were generated. The lack of intravenous contrast inherently limits the evaluation of hilar structures, vascular structures, and abnormal enhancement patterns. Lower than standard dose was utilized limiting sensitivity for fine parenchymal detail. Dose Parameters: CTDI(vol): 5.1 mGy. DLP: 188.6 mGy*cm. Findings: Chest: Lungs: Stable mild elevation of the right hemidiaphragm. Given interval difference in time there is no significant interval change to bilateral calcified and noncalcified pleural plaques. No new or concerning pulmonary nodule or mass is currently identified. No acute pulmonary process or pleural effusion is seen. The tracheobronchial tree is patent. No pneumothorax. Mediastinum/hilum/lymph nodes: Normal. No mediastinal lymphadenopathy by size criteria. No axillary lymphadenopathy by size criteria. Heart and pericardium: The heart size is normal. No pericardial effusion. Vessels: Atherosclerotic changes of the aorta and coronary arteries. Normal caliber thoracic aorta. Chest wall and lower neck: Normal. Included thyroid is normal. Upper abdomen: Hepatic steatotic changes. Status post cholecystectomy. Punctate calcified granuloma in the spleen. Overall, the visualized liver and spleen appear enlarged without focal abnormality. Skeletal: Normal age-related degenerative changes. Impression: Stable appearance of overall moderate burden of calcified and noncalcified mixed punctate and curvilinear pleural plaques which can cause restrictive lung disease. No acute pulmonary process identified, as described above. Primary Diagnostic Code: No immediate attention required Primary Interpreting Staff: MILA WANG JR, Radiologist (Log Inspector) /MILA TRAN JR [place] [facility] Encounter Notes: All associated encounter notes This section contains the clinical notes associated to the Encounter. Date/Time Encounter Note(s) Provider Source Apr 18, 2024 03:03 PM PREVENTIVE MEDICIN E NURSING NOTE: LOCAL TITLE: CLINICAL REMINDERS/NURSING STANDARD TITLE: PREVENTIVE MEDICINE NURSING NOTE DATE OF NOTE: APR 18, 2024@15:03 ENTRY DATE: APR 18, 2024@15:03:18 AUTHOR: PERCY RIVERO EXP COSIGNER: URGENCY: STATUS: COMPLETED Cigarette Pack Year History: The patient previously used cigarettes and quit smoking greater than or equal to 15 years ago. Suicide Screen: C-SSRS Screening [place] Suicide Severity Rating Scale (C-SSRS) screener 1. Over the past month, have you wished you were or wished you could go to sleep and not wake up? No 2. Over the past month, have you had any actual thoughts of killing yourself? No 3. Over the past month, have you been thinking about how you might do this? Response not required due to responses to other questions. 4. Over the past month, have you had these thoughts and had some intention of acting on them? Response not required due to responses to other questions. 5. Over the past month, have you started to work out or worked out the details of how to kill yourself? Response not required due to responses to other questions. 6. If yes, at any time in the past month did you intend to carry out this plan? Response not required due to responses to other questions. 7. In your lifetime, have you ever done anything, started to do anything, or prepared to do anything to end your life (for example, collected pills, obtained a gun, gave away valuables, went to the roof but didn't jump)? No 8. If YES, was this within the past 3 months? Response not required due to responses to other questions. Toxic Exposure Screening: The /caregiver was asked if they believe the [place] experienced any toxic exposure(s), such as Airborne Hazards and Open [place], [place] War related exposures, Agent [place], Radiation, contaminated water at [place] or other such exposures, while serving in the [employer]. [place] has no concerns about toxic exposure(s) while serving in the [employer]. The /caregiver was informed that we will continue to ask this screening question every 5 years. They can contact their provider/healthcare team if they have concerns about exposures and would like to be screened sooner. Printed information was offered and provided if desired. Homelessness/Food Insecurity Screen: In the past 2 months, have you been living in stable housing that you own, rent, or stay in as part of a household? Yes - Living in stable housing. Are you worried or concerned that in the next 2 months you may NOT have stable housing that you own, rent, or stay in as part of a household? No - Not worried about housing near future The [place] reports the following: Within the past 12 months, you worried whether your food would run out before you got money to buy more. Never true Within the past 12 months, the food you bought just didn't last and you didn't have money to get more. Never true Follow Up Colonoscopy: Colonoscopy is due based on information available to this reminder. Patient has arranged or is choosing to arrange a Colonoscopy independent of and w/out assistance from this [place]. Depression Screening: Perform PHQ-2 A PHQ-2 screen was performed. The score was 0 which is a negative screen for depression. Over the past two weeks, how often have you been bothered by the following problems? 1. Little interest or pleasure in doing things Not at all 2. Feeling down, depressed, or hopeless Not at all Pneumococcal Conjugate Vaccine (PCV15/PCV20): Refuses PCV vaccine Immunization: PNEUMOCOCCAL CONJUGATE, UNSPECIFIED FORMULATION Refusal Reason: PATIENT DECISION Patient refuses all immunization(s) in the PneumoPCV group Date Documented: 04/18/24 15:04 PTSD Screening: PC-PTSD-5 A PTSD screening test (PC-PTSD-5) was negative (score=0). IN THE PAST MONTH, have you ever had any experience that was so frightening, horrible or traumatic. For example: A serious accident or fire a physical or sexual assault or abuse An earthquake or flood A war Seeing someone be killed or seriously injured Having a loved one through homicide or suicide 1. Have you ever experienced this kind of event? NO 2. Had nightmares about the event(s) or thought about the event(s) when you did not want to? Response not required due to responses to other questions. 3. Tried hard not to think about the event(s) or went out of your way to avoid situations that reminded you of the event(s)? Response not required due to responses to other questions. 4. Been constantly on guard, watchful, or easily startled? Response not required due to responses to other questions. 5. [place] numb or detached from people, activities, or your surroundings? Response not required due to responses to other questions. 6. [place] guilty or unable to stop blaming yourself or others for the event(s) or any problems the event(s) may have caused? Response not required due to responses to other questions. Tobacco Use Screening: The patient is a former tobacco user. The patient quit fifteen or more years ago. Influenza Immunization: Influenza, High-Dose, Trivalent, Preservative Free (Fluzone-Syringe) Administered: INFLUENZA, HIGH-DOSE, TRIVALENT, PF Date Administered: Apr 18, 2024 15:04 Separator Operator Shellfish Meats: SANOFI PASTEUR Lot: [id number] Exp Date: Feb 03, [address] [facility]: [id number] Admin Route/Site: INTRAMUSCULAR/LEFT DELTOID Dosage: 0.5mL Vaccine Information Statement(s): INFLUENZA(FLU) VACC(INACTIVATED OR RECOMBINANT)VIS Mar 12, 2021 ([place]) Order By: Policy Administered By: Elpidio Rivero The Influenza Vaccine Information Statement (VIS) was reviewed with the patient/caregiver which lists the benefits and risks of the vaccine and the risks of not receiving the Influenza vaccine. The patient/caregiver denied any prior severe reaction to this vaccine or its components or a severe allergic reaction, such as anaphylaxis, to any vaccine or any injectable therapy. The patient/caregiver gave verbal consent to receive the vaccine. Td / Tdap Immunization: The patient declines to receive the recommended dose of Td/Tdap vaccine. Immunization: TD(ADULT) UNSPECIFIED FORMULATION Refusal Reason: PATIENT DECISION Patient refuses all immunization(s) in the Td group Date Documented: 04/18/24 15:05 Alcohol Use Screen (AUDIT-C): Alcohol Screen: SCREEN FOR ALCOHOL (AUDIT-C) An alcohol screening test (AUDIT-C) was negative (score=1). 1. How often did you have a drink containing alcohol in the past year? Consider a drink to be a 12 ounce can or bottle of regular beer, 8 ounces of malt liquor, a 5 ounce glass of table wine, or a 1.5 ounce shot of liquor (like scotch, gin, or vodka). Monthly or less 2. How many drinks containing alcohol did you have on a typical day when you were drinking in the past year? One or two drinks 3. How often did you have six or more drinks on one occasion in the past year? Never Herpes Zoster (Shingles) Vaccine: The patient declines to receive the recommended dose of zoster (shingles) vaccine. Immunization: ZOSTER RECOMBINANT Refusal Reason: PATIENT DECISION Patient refuses all immunization(s) in the ZOSTER group Date Documented: 04/18/24 15:06 Sexual Orientation: The patient thinks of their sexual orientation as: Straight or Heterosexual RHS Screen: RHS Screen Session Format: Face to Face Environmental Check Upon inquiry, the individual reports that the environment is safe to proceed. Informed Consent to Screen and Document The individual consents to proceed with screening. The individual consents to documentation of responses. PRIMARY SCREEN: In the past 12 months, how often did a current or former intimate partner (e.g., boyfriend, girlfriend, , , sexual partner): 1. Scream or curse at you Never 2. Insult or talk down to you Never 3. Threaten you with harm Never 4. Physically hurt you Never 5. Force or pressure you to have sexual contact against your will, or when you were unable to say no Never ?? The HITS tool (items 1-4 above) is [place] copyright protected by Ricardo Patel MD, and the user has full rights to use it throughout the [facility] system. PRIMARY SCREEN RESULT: The Primary Screen is NEGATIVE. The individual answered never to all forms of IPV above (i.e., answered never to all 5 items) The individual accepts education and/or resources: Yes - Offered verbal universal education about IPV EDUCATION: The individual indicated readiness to learn. Education offered during this session as noted above. The individual indicated understanding by asking relevant questions and making appropriate comments. No barriers to learning were observed or identified. Eye Care At-Risk Screen : Patient identified to be at risk for the following eye condition(s): MACULAR DEGENERATION: Macular Degeneration Risk Factors Information: Reminder Term: VA-AMD RISK FACTORS Encounter Diagnosis: 02/02/2015@08:30 V15.82 (ICD-9-CM) Personal History of Tobacco Use rank: SECONDARY Prov. Narr. - Ex-smoker ([facility] [id number]) Action: Patient has a future eye care appointment scheduled within the next 90 days. Date of Appointment: not exact date available /michael/ ELPIDIO RIVERO LPN LPN Signed: 04/18/2024 15:07 ELPIDIO RIVERO [facility]
--- OUTSIDE RECORDS SUMMARY | 2024-08-12 09:35 | XMS_ITS | Encounter Summary ---
Author Name [facility] Organization [facility] Address [address] [place] [id number] Care Team Providers Care Senior Hr Business Partner Name Role Phone VENECIA MOSQUERA Primary Care [...] Policy Vo [facility] Oct 05, 2017 [id number] SU DARNELL SPOUSE [facility] STRATEGIES [facility]ENTAL HEALTH [facility] Feb 04, 2013 [id number] [phone] SU DARNELL SPOUSE [employer] ([id number]) PRESCRIPT ION [facility] Feb 04, 2018 [id number] MANN,SU SPOUSE [employer] ([id number]) PRESCRIPT ION [facility] Feb 04, 2018 [id number] SU DARNELL SPOUSE MEDICARE (WNR) MEDICARE (M) PART B December 06, 2015 PART B [id number] YAAKOV DARNELL AM PATIENT MEDICARE (WNR) MEDICARE (M) PART B December 06, 2015 PART B [id number] YAAKOV DARNELL AM PATIENT MEDICARE (WNR) MEDICARE (M) PART A Oct 05, 2014 PART A [id number] YAAKOV DARNELL AM PATIENT MEDICARE (WNR) MEDICARE (M) PART A Oct 05, 2014 PART A [id number] YAAKOV DARNELL AM PATIENT UNICARE MEDICAL EXPENSE (OPT/PROF ) [facility] * Sep 07, 2016 [id number] SU DARNELL SPOUSE [employer]ARE PREFERRED PROVIDER ORGANIZAT ION (PPO) [facility] * Aug 07, 2006 [id number] SU DARNELL SPOUSE [employer] PREFERRED PROVIDER ORGANIZAT ION (PPO) [facility] Aug [facility], 2006 [id number] [phone] SU DARNELL SPOUSE Selected Encounter This section includes the information on record at [place] for the Encounter. Date/Time Encounter Type Encounter Description Reason Provider Source Apr 18, 2024 03:09 PM OFF/OP EST DECEMBER X REQ PHY/QHP PRIMARY CARE/MEDICINE ICD-10-CM Z23 Encounter for immunization TAMARA RIVERO [facility] Encounter Template Text not used by [place] Assessments - Encounter Diagnoses This section includes the primary and secondary diagnoses documented for the Encounter. Date/Time Primary/Secondary Diagnosis Diagnosis Name Provider Source May 01, 2024 02:45 PM PRIMARY Encounter for immunization PATY RIVERO [facility] Plan of Treatment: Future Appointments (+ 6 months) and Future Tests (+/- 45 days) The Plan of Treatment section includes future care activities for the patient from all [place] treatmentfacilities. This section includes future appointments and future orders which are active, pending or scheduled. Future Appointments This section includes appointments that were scheduled to occur 6 months from the date of the Encounter, up to a maximum of 20 appointments. The data comes from all [place] treatment facilities. Appointment Date/Time Appointment Type Appointme nt Facility Name Apr 30, 2024 09:00 AM AMBUL[facility]ORY - NONE [facility] Apr 30, 2024 09:30 AM AMBULATORY - NONE [facility] Jun 07, 2024 08:00 AM [facility] Oct 14, 2024 09:30 AM AMBULATORY [...] of theEncounter. The data comes from all [place] treatment facilities. Test Date/Time Test Type Test Details Facility Name Apr 18, 2024 12:00 AM Laboratory - Chemi stry Order URINALYSIS URINE SP [facility] Apr 19, 2024 04:05 PM Consult Order COMMUNITY CARE-PULMONARY Cons Export Freight Clerk's Choice [facility] Lab Results: +/- 30 days of the encounter This section includes the Chemistry and Hematology Lab Results on record with [place] for the patient. Radiology Reports and Pathology Reports are provided separately, in subsequent sections. Lab Results This section contains the Chemistry/Hematology Results that were resulted 30 days before or 30 daysafter the date of the Encounter. Date/Time Source Result Type Result - Unit Interpretation Reference Range Comment Apr 22, 2024 11:10 AM [facility] TSH Specimen Type: SERUM No comment entered. Ordering Provider: VENECIA MOSQUERA Report Released Date/Time: Apr 18, 2024 03:12 PM Reporting Lab: [address] [address] Performing Lab: [address] [address] TSH 2.91 u[IU]/mL 0.35-5.00 Apr 22, 2024 11:10 AM [facility] HEMOGLOBIN A1C PANEL Specimen Type: BLOOD Comment: [...] Apr 18, 2024 03:12 PM Reporting [facility]: [facility] [address] [address] Performing Lab[facility] [address] [address] HEMOGLOBIN A1C 5.0 4.0-5.6 Apr 22, 2024 11:10 AM [place] VITAMIN D (25-OH) Specimen Type: SERUM No comment entered. Ordering Provider: VENECIA MOSQUERA Report Released Date/Time: Apr 18, 2024 03:12 PM Reporting Lab: [facility] [address] [address] Performing Lab: [address] [address] VITAMIN D (25-OH) 27 ng/mL 20-50 Apr 22, 2024 11:10 AM [facility] CBC Specimen Type: BLOOD No comment entered. Ordering Provider: VENECIA MOSQUERA Report Released Date/Time: Apr 18, 2024 03:12 PM Reporting Lab: [address] [address] Performing Lab: [facility] [address] [address] WBC 5.27 10*3/uL 4.50-11.00 RBC 4.49 10*6/uL 4.23-5.66 HGB 15.0 g/dL 12.8-17 HCT 42.0 39.2-50.4 MCV 93.5 fL 82-99 MCHC 35.7 g/dL H 30.8-35.1 PLT 212 10*3/uL 140-360 RDW-CV 12.7 12.0-16.0 MCH 33.4 pg H 26.2-32.6 Apr 22, 2024 11:10 AM [place] LIPID PANEL FASTING Specimen Type: SERUM No comment entered. Ordering Provider: VENECIA MOSQUERA Report Released Date/Time: Apr 18, 2024 03:12 PM Reporting Lab: [address] [address] Performing Lab: [address] [address] CHOLESTEROL 141 mg/dL TRIGLYCERIDE 195 mg/dL H 0-150 LDL calculated 61 mg/dL 0-129 CHOL/HDL 3.4 HDL CHOLESTEROL 41 mg/dL 40-60 Apr 22, 2024 11:10 AM [place] BASIC METABOLIC PANEL (fasting) Specime n Type: SERUM No comment entered. Ordering Provider: VENECIA MOSQUERA Report Released Date/Time: Apr 18, 2024 03:12 PM Reporting Lab: [address] [address] Performing Lab: [address] [address] UREA NITROGEN 17 mg/dL 7-25 GLUCOSE 92 mg/dL 65-100 SODIUM 138 mmol/L 135-145 POTASSIUM 4.4 mmol/L 3.5-5.0 CHLORIDE 104 mmol/L 100-110 CO2 26 meq/L 20-30 CREATININE, Serum 0.88 mg/dL 0.50-1.40 eGFR(CKD-EPI 2020) 90 mL/min >60 Apr 22, 2024 11:10 AM [place] LIVER FUNCTION Specimen Type: SERUM No comment entered. Ordering Provider: VENECIA MOSQUERA Report Released Date/Time: Apr 18, 2024 03:12 PM Reporting Lab: [address] [address] Performing Lab: [address] [address] PROTEIN,TOTAL 7.2 g/dL 6.0-8.3 ALBUMIN 4.1 g/dL 3.5-5.0 ALKALINE PHOSPHATASE 76 U/L 40-150 AST 42 U/L H 5-34 ALT 58 U/L H BILIRUBIN, TOTAL 0.7 mg/dL 0.2-1.2 Vital Signs: All taken on the encounter date This section contains inpatient and outpatient Vital Signs collected on the date of the Encounter. Date/Time Temperature Pulse Blood Pressure Respiratory Rate SP02 Pain Height Weight Body Mass Index Source Apr 18, 2024 03:02 PM 97.9 81 142/71 19 96 75 237 30 [place] Immunizations: All administered on the encounter date This section contains immunizations associated to the Encounter. Immunization Series Date Issued Reaction Comments COVID-19 (MODERNA), MRNA, LN P-S, PF, 50 MCG/0.5 ML (AGES 12+ YEARS) Apr 18, 2024 Social History: Smoking Status (Most current) and Tobacco Use (All prior to encounter date) This section includes the most current, and the historical, smoking and tobacco- related health factors from the [place] facility where the Encounter took place. Current Smoking Status This section includes the most current smoking, or tobacco-related health factor, from the [place] facility where the Encounter took place. Date/Time Current Smoking Status Comment Elizabeth portillo Feb 02, 2015 08:14 AM QUIT TOBACCO USE > 7 YEARS AGO [facility] Radiology Reports: +/- 30 days of the [...] the Encounter. The data comes from all [place] treatment facilities. Date/Time Radiology Report Provider Source Apr 30, 2024 08:57 AM ULTRASOUND AAA SCREENING: JAYNA DARNELL AROLDO [id number] -1950 M Exm Date: APR 30, 2024@08:57 Req Phys: VENECIA MOSQUERA Loc: CWM/SO/PACT 7 (Req'g Loc) Img Loc: ULTRASOUND Service: [place] [address] (Case [id number] COMPLETE) ULTRASOUND AAA SCREENING (US Detailed) CPT:77250 Reason for Study: former smoker, quit 1993, Screening for AAA Clinical History: Some ultrasound tests require a prep. Report Status: Verified Date Reported: APR 30, 2024 Date Verified: APR 30, 2024 Tool Maker Bench E-Sig:/ES/MILA WANG JR Report: Study: AAA screening [...] Primary Interpreting Staff: MILA WANG JR, Radiologist (Tool Maker Bench) /MILA TRAN JR [facility] Apr 30, 2024 08:[address] THORAX W/O CONT: JAYNA DARNELL [id number] -1950 M Exm Date: APR 30, 2024@08:49 Req Phys: VENECIA MOSQUERA Loc: CWM/SO/PACT 7 (Req'g Loc) Img Loc: NHM/CT Service: [place] [address] (Case [id number] COMPLETE) CT THORAX W/O CONT (CT Detailed) CPT:47098 Reason for Study: former smoker, quit 1993, + asbestos exposure in Clinical History: chronic dyspnea with minimal exertion, occasional wheezing Report Status: Verified Date Reported: APR 30, 2024 Date Verified: APR 30, 2024 Tool Maker Bench E-Sig:/ES/MILA WANG JR Report: Study: Noncontrast CT [...] Primary Interpreting Staff: MILA WANG JR, Radiologist (Tool Maker Bench) /MILA TRAN JR [facility] Encounter Notes: All associated encounter notes This section contains the clinical notes associated to the Encounter. Date/Time Encounter Note(s) Provider Source Apr 18, 2024 03:09 PM PREVENTIVE MEDICIN E NURSING NOTE: LOCAL TITLE: CLINICAL REMINDERS/NURSING STANDARD TITLE: PREVENTIVE MEDICINE NURSING NOTE DATE OF NOTE: APR 18, 2024@15:09 ENTRY DATE: APR 18, 2024@15:09:37 AUTHOR: PERCY RIVERO EXP COSIGNER: URGENCY: STATUS: COMPLETED COVID-19 Immunization: Moderna Monovalent (Spikevax) Administered: COVID-19 (MODERNA), MRNA, LNP-S, PF, 50 MCG/0.5 ML (AGES 12+ YEARS) Date Administered: Apr 18, 2024 15:09 Series: Booster Senior Hr Business Partner: [employer] Lot: [id number] Exp Date: December 28, 2024 ND: [id number] Admin Route/Site: INTRAMUSCULAR/LEFT DELTOID Dosage: 0.5mL Vaccine Information Statement(s): COVID-19 MRNA VACCINE (12+ YRS) VACCINE VIS May 25, 2023 ([place]) Order By: Policy Administered By: Elpidio Rivero Vaccine administered without complications. /michael/ ELPIDIO RIVERO LPN LPN Signed: 04/18/2024 15:10 ELPIDIO RIVERO [place]
--- OUTSIDE RECORDS SUMMARY | 2024-08-12 09:35 | XMS_ITS | Encounter Summary ---
Author Name [facility] [place] [facility] [place] Address [address] [place] [id number] Care Team Providers Care Medicaid Plan Compliance Director Name Role Phone VENECIA MOSQUERA Primary Care [...] [facility] Oct 05, 2017 [id number] SU DARNELL SPOUSE [facility] Feb 04, 2013 [id number] SU DARNELL SPOUSE [facility] ([id number]) PRESCRIPT ION [facility] Feb 04, 2018 [id number] SU DARNELL SPOUSE [facility] ([id number]) PRESCRIPT ION [facility] Feb 04, 2018 [id number] [phone] SU DARNELL SPOUSE MEDICARE (WNR) MEDICARE (M) PART B December 06, 2015 PART B [id number] YAAKOV DARNELL AM PATIENT MEDICARE (WNR) MEDICARE (M) PART B December 06, 2015 PART B [id number] [employer] [facility] YAAKOV DARNELL AM PATIENT MEDICARE (WNR) MEDICARE (M) PART A Oct 05, 2014 PART A [id number] YAAKOV DARNELL AM PATIENT MEDICARE (WNR) MEDICARE (M) PART A Oct 05, 2014 PART A [id number] YAAKOV DARNELL AM PATIENT UNICARE MEDICAL EXPENSE (OPT/PROF ) [facility] * Sep 07, 2016 [id number] SU DARNELL SPOUSE UNICARE PREFERRED PROVIDER ORGANIZAT ION (PPO) [facility] * Aug 07, 2006 [id number] SU DARNELL SPOUSE UNICARE PREFERRED PROVIDER ORGANIZAT ION (PPO) [facility] N Aug 07, 2006 [id number] SU DARNELL SPOUSE Selected Encounter This section includes the information on record at [place] for the Encounter. Date/Time Encounter Type Encounter Description Reason Provider Source Apr 18, 2024 03:00 PM OFFICE O/P EST HI 40 MIN PRIMARY CARE/MEDICINE ICD-10-CM M19.90 Unspecified osteoarthritis, unspecified site VENECIA MOSQUERA [place] Encounter Template Text not used by [place] Assessments - Encounter Diagnoses This section includes the primary and secondary diagnoses documented for the Encounter. Date/Time Primary/Secondary Diagnosis Diagnosis Name Provider Source May 01, 2024 02:45 PM PRIMARY Unspecified osteoarthritis, unspecified site VENECIA MOSQUERA [facility] May 01, 2024 02:45 PM SECONDARY Contact with and (suspected) exposure to asbestos VENECIA MOSQUERA [facility] May 01, 2024 02:45 PM SECONDARY Deviated nasal septum VENECIA MOSQUERA [facility] May 01, 2024 02:45 PM SECONDARY Gastro-esophageal reflux disease without esophagitis VENECIA MOSQUERA [facility] May 01, 2024 02:45 PM SECONDARY Nicotine dependence, unspecified, in remission VENECIA MOSQUERA [facility] May 01, 2024 02:45 PM SECONDARY Other allergic rhinitis VENECIA MOSQUERA [facility] May 01, 2024 02:45 PM SECONDARY Other male erectile dysfunction VENECIA MOSQUERA [facility] May 01, 2024 02:45 PM SECONDARY Tinnitus, unspecified ear VENECIA MOSQUERA [facility] May 01, 2024 02:45 PM SECONDARY Unspecified hearing loss, bilateral VENECIA MOSQUERA [facility] Plan of Treatment: Future Appointments (+ 6 months) and Future Tests (+/- 45 days) The Plan of Treatment section includes future care activities for the [facility]. This section includes future appointments and future [...] 2024 09:00 AM [facility] NONE [facility] Apr 30, 2024 09:30 AM AMBULATORY - NONE [facility] [place] [facility] Jun 07, 2024 08:00 AM AMBULATORY - MEDICINE [facility] Oct 14, 2024 09:30 AM AMBULATORY - MEDICINE [facility] Active, Pending, and Scheduled Orders This section includes a listing of several types of active, pending, and scheduled orders, including clinic medications orders, diagnostic test orders, procedure orders and consult orders; where the start date of the order is 45 days before the date of the Encounter or 45 days after the date of theEncounter. The data comes from all [facility]. Test Date/Time Test Type Test Details Facility Name Apr 18, 2024 12:00 AM Laboratory - Chemi stry Order URINALYSIS URINE SP [facility] Apr 19, 2024 04:05 PM Consult Order COMMUNITY CARE-PULMONARY Cons [employer] [facility] Lab Results: +/- 30 days of the encounter This section includes the Chemistry and Hematology Lab Results on record with [place] for the patient. Radiology Reports and Pathology Reports are provided separately, in subsequent sections. Lab Results This section contains the Chemistry/Hematology Results that were resulted 30 days before or 30 daysafter the date of the Encounter. Date/Time Source Result Type Result - Unit Interpretation Reference Range Comment Apr 22, 2024 11:10 AM [facility] TSH Specimen Type: SERUM No comment entered. Ordering Provider: VENECIA MOSQUERA Report Released Date/Time: Apr 18, 2024 03:12 PM Reporting [facility] [address] [address] Performing Lab: [address] [address] TSH 2.91 u[IU]/mL 0.35-5.00 Apr 22, 2024 11:10 AM [facility] HEMOGLOBIN A1C PANEL Specimen Type: BLOOD Comment: [...] Apr 18, 2024 03:12 PM Reporting Lab: [address] [address] Performing Lab: [address] [address] HEMOGLOBIN A1C 5.0 4.0-5.6 Apr 22, 2024 11:10 AM [facility] VITAMIN D (25-OH) Specimen Type: SERUM No comment entered. Ordering Provider: VENECIA MOSQUERA Report Released Date/Time: Apr 18, 2024 03:12 PM Reporting Lab: [address] [address] Performing Lab: [address] [address] VITAMIN D (25-OH) 27 ng/mL 20-50 Apr 22, 2024 11:10 AM [facility] CBC Specimen Type: BLOOD No comment entered. Ordering Provider: VENECIA MOSQUERA Report Released Date/Time: Apr 18, 2024 03:12 PM Reporting Lab: [address] [address] Performing Lab: [address] [address] WBC 5.27 10*3/uL 4.50-11.00 RBC 4.49 10*6/uL 4.23-5.66 HGB 15.0 g/dL 12.8-17 HCT 42.0 39.2-50.4 MCV 93.5 fL 82-99 MCHC 35.7 g/dL H 30.8-35.1 PLT 212 10*3/uL 140-360 RDW-CV 12.7 12.0-16.0 MCH 33.4 pg H 26.2-32.6 Apr 22, 2024 11:10 AM [facility] LIPID PANEL FASTING Specimen Type: SERUM No comment entered. Ordering Provider: VENECIA MOSQUERA Report Released Date/Time: Apr 18, 2024 03:12 PM Reporting Lab: [address] [address] Performing Lab: [address] [address] CHOLESTEROL 141 mg/dL TRIGLYCERIDE 195 mg/dL H 0-150 LDL calculated 61 mg/dL 0-129 CHOL/HDL 3.4 HDL CHOLESTEROL 41 mg/dL 40-60 Apr 22, 2024 11:10 AM [facility] BASIC METABOLIC PANEL (fasting) Specime n Type: SERUM No comment entered. Ordering Provider: VENECIA MOSQUERA Report Released Date/Time: Apr 18, 2024 03:12 PM Reporting Lab: [address] [address] Performing Lab: [address] [address] UREA NITROGEN 17 mg/dL 7-25 GLUCOSE 92 mg/dL 65-100 SODIUM 138 mmol/L 135-145 POTASSIUM 4.4 mmol/L 3.5-5.0 CHLORIDE 104 mmol/L 100-110 CO2 26 meq/L 20-30 CREATININE, Serum 0.88 mg/dL 0.50-1.40 eGFR(CKD-EPI 2020) 90 mL/min >60 Apr 22, 2024 11:10 AM [facility] LIVER FUNCTION Specimen Type: SERUM No comment entered. Ordering Provider: VENECIA MOSQUERA Report Released Date/Time: Apr 18, 2024 03:12 PM Reporting Lab: [address] [address] Performing Lab: [address] [place] [address] PROTEIN,TOTAL 7.2 g/dL 6.0-8.3 ALBUMIN 4.1 g/dL [...] 81 142/71 19 96 75 237 30 [facility] IE Social History: Smoking Status (Most current) and Tobacco Use (All prior to encounter date) This section includes the most current, and the historical, smoking and tobacco- related health factors from the [place] facility where the Encounter took place. Current Smoking Status This section includes the most current smoking, or tobacco-related health factor, from the [place] facility where the Encounter took place. Date/Time Current Smoking Status Comment Facil [facility] Feb 02, 2015 08:14 AM QUIT TOBACCO USE > 7 YEARS AGO [facility] Radiology Reports: +/- 30 days of the [...] the Encounter. The data comes from all [place] treatment facilities. Date/Time Radiology Report Provider Source Apr 30, 2024 08:57 AM ULTRASOUND AAA SCREENING: MANNJAYNA AROLDO [id number] -1950 M Exm Date: APR 30, 2024@08:57 Req Phys: VENECIA MOSQUERA Loc: CWM/SO/PACT 7 (Req'g Loc) Img Loc: ULTRASOUND Service: [facility] [place] [address] (Case [id number] COMPLETE) ULTRASOUND AAA SCREENING (US Detailed) CPT:12124 Reason for Study: former smoker, quit 1993, Screening for AAA Clinical History: Some ultrasound tests require a prep. Report Status: Verified Date Reported: APR 30, 2024 Date Verified: APR 30, 2024 Highway Patrol Pilot E-Sig:/ES/MILA WANG JR Report: Study: AAA screening [...] Primary Interpreting Staff: MILA WANG JR, Radiologist (Highway Patrol Pilot) /EAMILA GAYTAN JR [facility] Apr 30, 2024 08:[address] THORAX W/O CONT: JAYNA DARNELL [id number] -1950 M Exm Date: APR 30, 2024@08:49 Req Phys: VENECIA MOSQUERA Loc: CWM/SO/PACT 7 (Req'g Loc) Img Loc: [place]/CT Service: [place] [address] (Case [id number] COMPLETE) CT THORAX W/O CONT (CT Detailed) CPT:72234 Reason for Study: former smoker, quit 1993, + asbestos exposure in Clinical History: chronic dyspnea with minimal exertion, occasional wheezing Report Status: Verified Date Reported: APR 30, 2024 Date Verified: APR 30, 2024 Highway Patrol Pilot E-Sig:/ES/MILA WANG JR Report: Study: Noncontrast CT [...] Primary Interpreting Staff: MILA WANG JR, Radiologist (Highway Patrol Pilot) /MILA TRAN JR [facility] Encounter Notes: All associated encounter notes This section contains the clinical notes associated to the Encounter. Date/Time Encounter Note(s) Provider Source Apr 30, 2024 10:10 AM ADDENDUM: LOCAL TITLE: Addendum STANDARD TITLE: ADDENDUM DATE OF NOTE: APR 30, 2024@10:10:16 ENTRY DATE: APR 30, 2024@10:10:18 AUTHOR: VENECIA MOSQUERA EXP COSIGNER: URGENCY: STATUS: COMPLETED Please notify patient his chest CT for lung cancer screening showed restrictive lung disease (expected in someone with smoking history) but otherwise normal. /michael/ ERIC DUMONT CERTIFIED NURSE PRACTITIONER Signed: 04/30/2024 10:10 Receipt Acknowledged By: 04/30/2024 16:22 /michael/ ELPIDIO RIVERO LPN LPN --- Original Document --- 04/18/24 NURSE PRACTITIONER OUTPATIENT NOTE: PRIMARY CARE VISIT - NEW PATIENT JAYNA DARNELL, is a 73 y/o WHITE MALE [place] who [facility] the [facility]. TYPE OF VISIT: Face to face Last seen at [place] 2016 HPI: Active problems - Computerized Problem List is the source for the followin. OA - Osteoarthritis b/l shoulders, neck, mid/lower back. Takes PRN ibuprofen. 2. Deviated nasal septum secondary to nasal fracture. 3. Perennial allergic rhinitis - takes Binta, Singulair daily. 4. Secondary erectile dysfunction - difficulty obtaining erection. Would like to try Viagra. 5. Tinnitus b/l ears - hx noise exposure. 6. Bilateral hearing loss no hearing aids 7. Gastroesophageal reflux disease - takes famotidine and PPI routinely. 8. 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 No cough but has occasional wheezing and tightness. States he recently had PFT but is unsure of results. Has never been on a maintenance inhaler. 9. Ex-smoker - 1PPD x 20 years, quit 1993 Recent labs reviewed if available and all medications were reconciled/confirmed during this visit. HEALTHCARE PROVIDERS: community PCP Optometry SOCIAL HISTORY: MARITAL STATUS - Tobacco use/history - former smoker, quit 1993 Alcohol use/history - approximately 8 drinks/week, denies binge drinking Drug use/history - never SURGICAL HISTORY: lap darin arthroscopy b/l shoulders ORIF with plate left wrist following fracture tonsillectomy FAMILY HISTORY: noncontributory HISTORY: [place] Feb COMBAT SERVICE INDICATED: No VITAL SIGNS: Blood Pressure: 142/71 (04/18/2024 15:02) Pain: 9 (08/18/2015 13:36) Patient Height: 75 in [190.5 cm] (04/18/2024 15:02) Patient Weight: 237 lb [107.50 kg] (04/18/2024 15:02) Pulse: 81 (04/18/2024 15:02) Respiration: 19 (04/18/2024 15:) Temperature: 97.9 F [36.6 C] (04/18/2024 15:) ASSISTIVE DEVICES: none REVIEW OF SYSTEMS: CONSTITUTIONAL: No fevers, chills, unexpected weight changes. EENT: No changes in vision. Has b/l hearing loss and tinnitus, no hearing aid. Has chronic rhinorrhea and nasal congestion. CARDIOVASCULAR: No chest pain, palpitations or peripheral edema. RESPIRATORY: No SOB at rest, + DURAN with minimal exertion, occasional wheezing. Denies cough. GASTROINTESTINAL: Denies abdominal pain, N/V/D/C. Frequent heartburn. No melena or hematochezia. GENITOURINARY: No dysuria, urinary frequency or urgency. No nocturia or hematuria. + ED symptoms. MUSCULOSKELETAL: chronic pain b/l shoulders, neck, mid/low back. SKIN: Denies rashes, open areas or concerns PSYCHIATRIC: No anxiety or depression. No sleep disturbance. NEUROLOGIC: No headaches, dizziness, numbness/tingling in the extremities or unilateral weakness. PHYSICAL EXAMINATION: General: Well-appearing [place] in no obvious distress. Mental Status: Alert and oriented x4. Head: Normocephalic, atraumatic. Eyes: PERRL. EOMI. Anicteric sclerae. ENT: TM and ear canals normal bilaterally. Deviated nasal septum, + nasal congestion. Moist oral mucosa. Posterior pharynx unremarkable. Good dentition. Neck: Supple. No JVD. No lymphadenopathy. No carotid bruit. Thyroid unremarkable. Lungs: CTAB, diminished in bases. Normal chest excursion. Eupneic respirations. CV: Heart tones S1, S2. RRR. No M/G/R. No peripheral edema. GI: Abdomen is soft and nontender. No palpable mass or organomegaly. : No CVA tenderness. Digital prostate exam deferred. MS: Crepitus present b/l shoulders, full ROM. No spinal deformity. Minimal limitation with ROM C/T/L spine. Neuro: CN II through XII grossly intact. Normal speech. Normal gait. Integument: Skin warm and dry. No rashes or lesions on visible areas. Psych: Normal mood and affect. Normal judgment. Cooperative with exam, follows commands. ALLERGIES: Patient has answered [facility] MAINTENANCE - see end of note PREVENTIVE MEDICINE GOALS Cigarette Pack Year History DUE NOW Suicide Screen DUE NOW Toxic Exposure Screening DUE NOW Homelessness/Food Insecurity Screen Feb 02 Follow Up Colonoscopy Feb 02 Depression Screening DUE NOW Lipid Screening May 21 Pneumococcal Conjugate Vaccine (PCV15/PCDUE NOW Primary Care Provider Search DUE NOW PTSD Screening Feb 02 Tobacco Use Screening DUE NOW Screen for Abd Aortic Aneurysm DUE NOW Influenza Immunization DUE NOW Medication Reconciliation DUE NOW Td / Tdap Immunization Mar 01 Alcohol Use Screen (AUDIT-C) Feb 02 COVID-19 Immunization DUE NOW Herpes Zoster (Shingles) Vaccine DUE NOW Sexual Orientation DUE NOW RHS Screen DUE NOW Eye Care At-Risk Screen DUE NOW (Optional) Whole Health Documentation DUE NOW ASSESSMENT/PLAN: Active problems - Computerized Problem List is the source for the followin. OA - Osteoarthritis b/l shoulders, neck, mid/lower back. Continue PRN ibuprofen. 2. Deviated nasal septum secondary to nasal fracture. Declines referral to ENT 3. Perennial allergic rhinitis - Continue Binta, Singulair. 4. Secondary erectile dysfunction - difficulty obtaining erection. Viagra ordered. Discussed side effects, risk, benefit. 5. Tinnitus b/l ears - hx noise exposure. Declines referral to audiology. 6. Bilateral hearing loss, no hearing aids required. Declines referral to ENT 7. Gastroesophageal reflux disease - continue Rx, avoid food triggers. Avoid overeating, lying down immediately following meals. 8. 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 Start [place] daily, referral made to pulmonology. LDCT ordered. Continue albuterol PRN. 9. Ex-smoker - 1PPD x 20 years, quit 1993. LDCT, AAA screen ordered. Routine and screening labs ordered FOLLOW UP: Return to clinic as noted below and/or sooner PRN UPCOMING APPOINTMENTS: 04/18/2024 15:00 CWM/SO/PACT 7 No barriers noted; patient understands and agrees to current treatment plan. If patient has any questions, concerns or changes in current health status he/she will call or [facility] A total of 60 minutes were spent F2F with the patient during this encounter and over half that time was spent on counseling and coordination of care. We discussed in depth all current health conditions and management of these conditions. Appropriate referrals were made. HM: Lipid Screening: Lipid profile ordered at this encounter. Primary Care Provider Search: Patient receiving outside Primary Care and declines [place] Primary Care. Screen for Abd Aortic Aneurysm: Order Ultrasound Medication Reconciliation: Outpatient: Has the patient been taking medications as documented in the EMLR? YES: The patient has been taking medications as documented in the EMLR. Essential Medication List for Review used to complete this medication reconciliation. INCLUDED IN THIS LIST: Alphabetical list of active outpatient prescriptions dispensed from this [place] (local) and dispensed from another [place] or DoD facility (remote) as well as inpatient orders (local, pending and active), local clinic medications, locally documented non-VA medications, and local prescriptions that have or been discontinued in the past 90 days. - All changes in medications, including all non-VA/Herbal/OTC medications were entered into CPRS. - If there were any medications the patient should no longer take, they were discontinued. - The patient/caregiver was instructed to update this list, discard old lists, and take this list to the next appointment, whether with a VA or non-VA provider. Eye Care At-Risk Screen : Patient identified to be at risk for the following eye condition(s): MACULAR DEGENERATION: Macular Degeneration Risk Factors Information: Reminder Term: VA-AMD RISK FACTORS Encounter Diagnosis: 02/02/2015@08:30 V15.82 (ICD-9-CM) Personal History of Tobacco Use rank: SECONDARY Prov. Narr. - Ex-smoker ([facility] [id number]) Action: No Referral Ordered: Eye exam completed elsewhere by an Facility Sales And Admin or Plant Reliability Engineer Exam Information: Date: November 06, 2023 Findings/Comment approximate date per patient Pneumococcal Conjugate Vaccine (PCV15/PCV20): Pneumococcal vaccine given previously - written records available Documented: PNEUMOCOCCAL POLYSACCHARIDE PPV23 Historical Date Administered: Aug 11, 2023 Information Source: FROM PATIENT'S RECALL /ERIC Forrester CERTIFIED NURSE PRACTITIONER Signed: 04/21/2024 17:42 04/24/2024 ADDENDUM STATUS: COMPLETED please notify labs are normal/stable. /ERIC Forrester CERTIFIED NURSE PRACTITIONER Signed: 04/24/2024 08:56 Receipt Acknowledged By: 04/24/2024 09:05 /sally RIVERO LPN LPN 04/24/2024 ADDENDUM STATUS: COMPLETED [facility] was unable to reach generic voice message was left. /sally RIVERO LPN LPN Signed: 04/24/2024 09:07 04/30/2024 ADDENDUM STATUS: COMPLETED Please notify patient his abdominal ultrasound to screen for aneurysm is normal /ERIC Forrester CERTIFIED NURSE PRACTITIONER Signed: 04/30/2024 09:46 Receipt Acknowledged By: 04/30/2024 16:22 /JEANNE Nunez LPN, [facility] [place] Apr 30, 2024 09:45 AM ADDENDUM: LOCAL TITLE: Addendum STANDARD TITLE: ADDENDUM DATE OF NOTE: APR 30, 2024@09:45:48 ENTRY DATE: APR 30, 2024@09:45:49 AUTHOR: VENECIA MOSQUERA EXP COSIGNER: URGENCY: STATUS: COMPLETED Please notify patient his abdominal ultrasound to screen for aneurysm is normal /michael/ ERIC DUMONT CERTIFIED NURSE PRACTITIONER Signed: 04/30/2024 09:46 Receipt Acknowledged By: 04/30/2024 16:22 /es/ ELPIDIO RIVERO LPN DEPARTMENT OF SOCIOLOGY CHAIR --- Original Document --- 04/18/24 NURSE PRACTITIONER OUTPATIENT NOTE: PRIMARY CARE VISIT - NEW PATIENT JAYNA DARNELL, is a 73 y/o WHITE MALE who [facility]. TYPE OF VISIT: Face to face Last seen at [facility] 2016 HPI: Active problems - Computerized Problem List is the source for the followin. OA - Osteoarthritis b/l shoulders, neck, mid/lower back. Takes PRN ibuprofen. 2. Deviated nasal septum secondary to nasal fracture. 3. Perennial allergic rhinitis - takes Binta, Singulair daily. 4. Secondary erectile dysfunction - difficulty obtaining erection. Would like to try Viagra. 5. Tinnitus b/l ears - hx noise exposure. 6. Bilateral hearing loss no hearing aids 7. Gastroesophageal reflux disease - takes famotidine and PPI routinely. 8. 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 No cough but has occasional wheezing and tightness. States he recently had PFT but is unsure of results. Has never been on a maintenance inhaler. 9. Ex-smoker - 1PPD x 20 years, quit 1993 Recent labs reviewed if available and all medications were reconciled/confirmed during this visit. HEALTHCARE PROVIDERS: community PCP Optometry SOCIAL HISTORY: MARITAL STATUS - Tobacco use/history - former smoker, quit 1993 Alcohol use/history - approximately 8 drinks/week, denies binge drinking Drug use/history - never SURGICAL HISTORY: lap darin arthroscopy b/l shoulders ORIF with plate left wrist following fracture tonsillectomy FAMILY HISTORY: noncontributory HISTORY: PERIOD OF SERVICE - [employer] FROM Oct TO Feb COMBAT SERVICE INDICATED: No VITAL SIGNS: Blood Pressure: 142/71 (04/18/2024 15:02) Pain: 9 (08/18/2015 13:36) Patient Height: 75 in [190.5 cm] (04/18/2024 15:02) Patient Weight: 237 lb [107.50 kg] (04/18/2024 15:02) Pulse: 81 (04/18/2024 15:02) Respiration: 19 (04/18/2024 15:02) Temperature: 97.9 F [36.6 C] (04/18/2024 15:02) ASSISTIVE DEVICES: none REVIEW OF SYSTEMS: CONSTITUTIONAL: No fevers, chills, unexpected weight changes. EENT: No changes in vision. Has b/l hearing loss and tinnitus, no hearing aid. Has chronic rhinorrhea and nasal congestion. CARDIOVASCULAR: No chest pain, palpitations or peripheral edema. RESPIRATORY: No SOB at rest, + DURAN with minimal exertion, occasional wheezing. Denies cough. GASTROINTESTINAL: Denies abdominal pain, N/V/D/C. Frequent heartburn. No melena or hematochezia. GENITOURINARY: No dysuria, urinary frequency or urgency. No nocturia or hematuria. + ED symptoms. MUSCULOSKELETAL: chronic pain b/l shoulders, neck, mid/low back. SKIN: Denies rashes, open areas or concerns PSYCHIATRIC: No anxiety or depression. No sleep disturbance. NEUROLOGIC: No headaches, dizziness, numbness/tingling in the extremities or unilateral weakness. PHYSICAL EXAMINATION: General: Well-appearing in no obvious distress. Mental Status: Alert and oriented x4. Head: Normocephalic, atraumatic. Eyes: PERRL. EOMI. Anicteric sclerae. ENT: TM and ear canals normal bilaterally. Deviated nasal septum, + nasal congestion. Moist oral mucosa. Posterior pharynx unremarkable. Good dentition. Neck: Supple. No JVD. No lymphadenopathy. No carotid bruit. Thyroid unremarkable. Lungs: CTAB, diminished in bases. Normal chest excursion. Eupneic respirations. CV: Heart tones S1, S2. RRR. No M/G/R. No peripheral edema. GI: Abdomen is soft and nontender. No palpable mass or organomegaly. : No CVA tenderness. Digital prostate exam deferred. MS: Crepitus present b/l shoulders, full ROM. No spinal deformity. Minimal limitation with ROM C/T/L spine. Neuro: CN II through XII grossly intact. Normal speech. Normal gait. Integument: Skin warm and dry. No rashes or lesions on visible areas. Psych: Normal mood and affect. Normal judgment. Cooperative with exam, follows commands. ALLERGIES: Patient has answered [facility] MAINTENANCE - see end of note PREVENTIVE MEDICINE GOALS Cigarette Pack Year History DUE NOW Suicide Screen DUE NOW Toxic Exposure Screening DUE NOW Homelessness/Food Insecurity Screen Feb 02 Follow Up Colonoscopy Feb 02 Depression Screening DUE NOW Lipid Screening May 21 Pneumococcal Conjugate Vaccine (PCV15/PCDUE NOW Primary Care Provider Search DUE NOW PTSD Screening Feb 02 Tobacco Use Screening DUE NOW Screen for Abd Aortic Aneurysm DUE NOW Influenza Immunization DUE NOW Medication Reconciliation DUE NOW Td / Tdap Immunization Mar 01 Alcohol Use Screen (AUDIT-C) Feb 02 COVID-19 Immunization DUE NOW Herpes Zoster (Shingles) Vaccine DUE NOW Sexual Orientation DUE NOW RHS Screen DUE NOW Eye Care At-Risk Screen DUE NOW (Optional) Whole Health Documentation DUE NOW ASSESSMENT/PLAN: Active problems - Computerized Problem List is the source for the followin. OA - Osteoarthritis b/l shoulders, neck, mid/lower back. Continue PRN ibuprofen. 2. Deviated nasal septum secondary to nasal fracture. Declines referral to ENT 3. Perennial allergic rhinitis - Continue Binta, Singulair. 4. Secondary erectile dysfunction - difficulty obtaining erection. Viagra ordered. Discussed side effects, risk, benefit. 5. Tinnitus b/l ears - hx noise exposure. Declines referral to audiology. 6. Bilateral hearing loss, no hearing aids required. Declines referral to ENT 7. Gastroesophageal reflux disease - continue Rx, avoid food triggers. Avoid overeating, lying down immediately following meals. 8. 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 Start Wixela daily, referral made to pulmonology. LDCT ordered. Continue albuterol PRN. 9. Ex-smoker - 1PPD x 20 years, quit 1993. LDCT, AAA screen ordered. Routine and screening labs ordered FOLLOW UP: Return to clinic as noted below and/or sooner PRN UPCOMING APPOINTMENTS: 04/18/2024 15:00 CWM/SO/PACT 7 No barriers noted; patient understands and agrees to current treatment plan. If patient has any questions, concerns or changes in current health status he/she will call or come in to the [facility]. A total of 60 minutes were spent F2F with the patient during this encounter and over half that time was spent on counseling and coordination of care. We discussed in depth all current health conditions and management of these conditions. Appropriate referrals were made. HM: Lipid Screening: Lipid profile ordered at this encounter. Primary Care Provider Search: Patient receiving outside Primary Care and [facility] Primary Care. Screen for Abd Aortic Aneurysm: Order Ultrasound Medication Reconciliation: Outpatient: Has the patient been taking medications as documented in the EMLR? YES: The patient has been taking medications as documented in the EMLR. Essential Medication List for Review used to complete this medication reconciliation. INCLUDED IN THIS LIST: Alphabetical list of active outpatient prescriptions dispensed from this [facility] (local) and dispensed from another VA or [facility] facility (remote) as well as inpatient orders (local, pending and active), local clinic medications, locally documented non-VA medications, and local prescriptions that have or been discontinued in the past 90 days. - All changes in medications, including all non-VA/Herbal/OTC medications were entered into CPRS. - If there were any medications the patient should no longer take, they were discontinued. - The patient/caregiver was instructed to update this list, discard old lists, and take this list to the next appointment, whether with a VA or non-VA provider. Eye Care At-Risk Screen : Patient identified to be at risk for the following eye condition(s): MACULAR DEGENERATION: Macular Degeneration Risk Factors Information: Reminder Term: VA-AMD RISK FACTORS Encounter Diagnosis: 02/02/2015@08:30 V15.82 (ICD-9-CM) Personal History of Tobacco Use rank: SECONDARY Prov. Narr. - Ex-smoker ([facility] [id number]) Action: No Referral Ordered: Eye exam completed elsewhere by an Facility Sales And Admin or Plant Reliability Engineer Exam Information: Date: November 06, 2023 Findings/Comment approximate date per patient Pneumococcal Conjugate Vaccine (PCV15/PCV20): Pneumococcal vaccine given previously - written records available Documented: PNEUMOCOCCAL POLYSACCHARIDE PPV23 Historical Date Administered: Aug 11, 2023 Information Source: FROM PATIENT'S RECALL /michael/ ERIC DUMONT CERTIFIED NURSE PRACTITIONER Signed: 04/21/2024 17:42 04/24/2024 ADDENDUM STATUS: COMPLETED please notify labs are normal/stable. /ERIC Forrester CERTIFIED NURSE PRACTITIONER Signed: 04/24/2024 08:56 Receipt Acknowledged By: 04/24/2024 09:05 /sally RIVERO LPN LPN 04/24/2024 ADDENDUM STATUS: COMPLETED [employer] was unable to reach generic voice message was left. /sally RIVERO LPN LPN Signed: 04/24/2024 09:07 04/30/2024 ADDENDUM STATUS: COMPLETED Please notify patient his chest CT for lung cancer screening showed restrictive lung disease (expected in someone with smoking history) but otherwise normal. /ERIC Forrester CERTIFIED NURSE PRACTITIONER Signed: 04/30/2024 10:10 Receipt Acknowledged By: 04/30/2024 16:22 /JEANNE Nunez LPN, [facility] [place] Apr 24, 2024 08:56 AM ADDENDUM: LOCAL TITLE: Addendum STANDARD TITLE: ADDENDUM DATE OF NOTE: APR 24, 2024@08:56:22 ENTRY DATE: APR 24, 2024@08:56:23 AUTHOR: VENECIA MOSQUERA EXP COSIGNER: URGENCY: STATUS: COMPLETED please notify labs are normal/stable. /ERIC Forrester CERTIFIED NURSE PRACTITIONER Signed: 04/24/2024 08:56 Receipt Acknowledged By: 04/24/2024 09:05 /sally RIVERO LPN LPN --- Original Document --- 04/18/24 NURSE PRACTITIONER OUTPATIENT NOTE: PRIMARY CARE VISIT - NEW PATIENT JAYNA DARNELL, is a 73 y/o WHITE MALE who [facility]. TYPE OF VISIT: Face to face Last seen at [facility] 2016 HPI: Active problems - Computerized Problem List is the source for the followin. OA - Osteoarthritis b/l shoulders, neck, mid/lower back. Takes PRN ibuprofen. 2. Deviated nasal septum secondary to nasal fracture. 3. Perennial allergic rhinitis - takes Binta, Singulair daily. 4. Secondary erectile dysfunction - difficulty obtaining erection. Would like to try Viagra. 5. Tinnitus b/l ears - hx noise exposure. 6. Bilateral hearing loss no hearing aids 7. Gastroesophageal reflux disease - takes famotidine and PPI routinely. 8. 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 No cough but has occasional wheezing and tightness. States he recently had PFT but is unsure of results. Has never been on a maintenance inhaler. 9. Ex-smoker - 1PPD x 20 years, quit 1993 Recent labs reviewed if available and all medications were reconciled/confirmed during this visit. HEALTHCARE PROVIDERS: community PCP Optometry SOCIAL HISTORY: MARITAL STATUS - Tobacco use/history - former smoker, quit 1993 Alcohol use/history - approximately 8 drinks/week, denies binge drinking Drug use/history - never SURGICAL HISTORY: lap darin arthroscopy b/l shoulders ORIF with plate left wrist following fracture tonsillectomy FAMILY HISTORY: noncontributory HISTORY: PERIOD OF SERVICE - [email or web address] FROM Oct TO Feb COMBAT SERVICE INDICATED: No VITAL SIGNS: Blood Pressure: 142/71 (04/18/2024 15:02) Pain: 9 (08/18/2015 13:36) Patient Height: 75 in [190.5 cm] (04/18/2024 15:02) Patient Weight: 237 lb [107.50 kg] (04/18/2024 15:02) Pulse: 81 (04/18/2024 15:02) Respiration: 19 (04/18/2024 15:02) Temperature: 97.9 F [36.6 C] (04/18/2024 15:02) ASSISTIVE DEVICES: none REVIEW OF SYSTEMS: CONSTITUTIONAL: No fevers, chills, unexpected weight changes. EENT: No changes in vision. Has b/l hearing loss and tinnitus, no hearing aid. Has chronic rhinorrhea and nasal congestion. CARDIOVASCULAR: No chest pain, palpitations or peripheral edema. RESPIRATORY: No SOB at rest, + DURAN with minimal exertion, occasional wheezing. Denies cough. GASTROINTESTINAL: Denies abdominal pain, N/V/D/C. Frequent heartburn. No melena or hematochezia. GENITOURINARY: No dysuria, urinary frequency or urgency. No nocturia or hematuria. + ED symptoms. MUSCULOSKELETAL: chronic pain b/l shoulders, neck, mid/low back. SKIN: Denies rashes, open areas or concerns PSYCHIATRIC: No anxiety or depression. No sleep disturbance. NEUROLOGIC: No headaches, dizziness, numbness/tingling in the extremities or unilateral weakness. PHYSICAL EXAMINATION: General: Well-appearing [place] in no obvious distress. Mental Status: Alert and oriented x4. Head: Normocephalic, atraumatic. Eyes: PERRL. EOMI. Anicteric sclerae. ENT: TM and ear canals normal bilaterally. Deviated nasal septum, + nasal congestion. Moist oral mucosa. Posterior pharynx unremarkable. Good dentition. Neck: Supple. No JVD. No lymphadenopathy. No carotid bruit. Thyroid unremarkable. Lungs: CTAB, diminished in bases. Normal chest excursion. Eupneic respirations. CV: Heart tones S1, S2. RRR. No M/G/R. No peripheral edema. GI: Abdomen is soft and nontender. No palpable mass or organomegaly. : No CVA tenderness. Digital prostate exam deferred. MS: Crepitus present b/l shoulders, full ROM. No spinal deformity. Minimal limitation with ROM C/T/L spine. Neuro: CN II through XII grossly intact. Normal speech. Normal gait. Integument: Skin warm and dry. No rashes or lesions on visible areas. Psych: Normal mood and affect. Normal judgment. Cooperative with exam, follows commands. ALLERGIES: Patient has answered [facility] HEALTH MAINTENANCE - see end of note PREVENTIVE MEDICINE GOALS Cigarette Pack Year History DUE NOW Suicide Screen DUE NOW Toxic Exposure Screening DUE NOW Homelessness/Food Insecurity Screen Feb 02 Follow Up Colonoscopy Feb 02 Depression Screening DUE NOW Lipid Screening May 21 Pneumococcal Conjugate Vaccine (PCV15/PCDUE NOW Primary Care Provider Search DUE NOW PTSD Screening Feb 02 Tobacco Use Screening DUE NOW Screen for Abd Aortic Aneurysm DUE NOW Influenza Immunization DUE NOW Medication Reconciliation DUE NOW Td / Tdap Immunization Mar 01 Alcohol Use Screen (AUDIT-C) Feb 02 COVID-19 Immunization DUE NOW Herpes Zoster (Shingles) Vaccine DUE NOW Sexual Orientation DUE NOW RHS Screen DUE NOW Eye Care At-Risk Screen DUE NOW (Optional) Whole Health Documentation DUE NOW ASSESSMENT/PLAN: Active problems - Computerized Problem List is the source for the followin. OA - Osteoarthritis b/l shoulders, neck, mid/lower back. Continue PRN ibuprofen. 2. Deviated nasal septum secondary to nasal fracture. Declines referral to ENT 3. Perennial allergic rhinitis - Continue Binta, Singulair. 4. Secondary erectile dysfunction - difficulty obtaining erection. Viagra ordered. Discussed side effects, risk, benefit. 5. Tinnitus b/l ears - hx noise exposure. Declines referral to audiology. 6. Bilateral hearing loss, no hearing aids required. Declines referral to ENT 7. Gastroesophageal reflux disease - continue Rx, avoid food triggers. Avoid overeating, lying down immediately following meals. 8. 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 Start Wixela daily, referral made to pulmonology. LDCT ordered. Continue albuterol PRN. 9. Ex-smoker - 1PPD x 20 years, quit 1993. LDCT, AAA screen ordered. Routine and screening labs ordered FOLLOW UP: Return to clinic as noted below and/or sooner PRN UPCOMING APPOINTMENTS: 04/18/2024 15:00 CWM/SO/PACT 7 No barriers noted; patient understands and agrees to current treatment plan. If patient has any questions, concerns or changes in current health status he/she will call or come [facility] to the [facility]. A total of 60 minutes were spent F2F with the patient during this encounter and over half that time was spent on counseling and coordination of care. We discussed in depth all current health conditions and management of these conditions. Appropriate referrals were made. HM: Lipid Screening: Lipid profile ordered at this encounter. Primary Care Provider Search: Patient receiving outside Primary Care and declines [facility]. Screen for Abd Aortic Aneurysm: Order Ultrasound Medication Reconciliation: Outpatient: Has the patient been taking medications as documented in the EMLR? YES: The patient has been taking medications as documented in the EMLR. Essential Medication List for Review used to complete this medication reconciliation. INCLUDED IN THIS LIST: Alphabetical list of active outpatient prescriptions dispensed from this [facility] (local) and dispensed from another [facility] or [facility] facility (remote) as well as inpatient orders (local, pending and active), local clinic medications, locally documented non-VA medications, and local prescriptions that have or been discontinued in the past 90 days. - All changes in medications, including all non-VA/Herbal/OTC medications were entered into CPRS. - If there were any medications the patient should no longer take, they were discontinued. - The patient/caregiver was instructed to update this list, discard old lists, and take this list to the next appointment, whether with a VA or non-VA provider. Eye Care At-Risk Screen : Patient identified to be at risk for the following eye condition(s): MACULAR DEGENERATION: Macular Degeneration Risk Factors Information: Reminder Term: VA-AMD RISK FACTORS Encounter Diagnosis: 02/02/2015@08:30 V15.82 (ICD-9-CM) Personal History of Tobacco Use rank: SECONDARY Prov. Narr. - Ex-smoker ([facility] [id number]) Action: No Referral Ordered: Eye exam completed elsewhere by an Facility Sales And Admin or Plant Reliability Engineer Exam Information: Date: November 06, 2023 Findings/Comment approximate date per patient Pneumococcal Conjugate Vaccine (PCV15/PCV20): Pneumococcal vaccine given previously - written records available Documented: PNEUMOCOCCAL POLYSACCHARIDE PPV23 Historical Date Administered: Aug 11, 2023 Information Source: FROM PATIENT'S RECALL /es/ ERIC DUMONT CERTIFIED NURSE PRACTITIONER Signed: 04/21/2024 17:42 VENECIA MOSQUERA [place] Apr 18, 2024 02:37 PM PRIMARY CARE NURSE PRACTITIONER OUTPATIENT NOTE: LOCAL TITLE: NURSE PRACTITIONER OUTPATIENT NOTE STANDARD TITLE: PRIMARY CARE NURSE PRACTITIONER OUTPATIENT NOTE DATE OF NOTE: APR 18, 2024@14:37 ENTRY DATE: APR 18, 2024@14:37:28 AUTHOR: VENECIA MOSQUERA EXP COSIGNER: URGENCY: STATUS: COMPLETED NURSE PRACTITIONER OUTPATIENT NOTE Has ADDENDA PRIMARY CARE VISIT - NEW PATIENT JAYNA DARNELL, is a 73 y/o WHITE MALE who presents today at [facility]. TYPE OF VISIT: Face to face Last seen at [facility] 2016 HPI: Active problems - Computerized Problem List is the source for the followin. OA - Osteoarthritis b/l shoulders, neck, mid/lower back. Takes PRN ibuprofen. 2. Deviated nasal septum secondary to nasal fracture. 3. Perennial allergic rhinitis - takes Binta, Singulair daily. 4. Secondary erectile dysfunction - difficulty obtaining erection. Would like to try Viagra. 5. Tinnitus b/l ears - hx noise exposure. 6. Bilateral hearing loss no hearing aids 7. Gastroesophageal reflux disease - takes famotidine and PPI routinely. 8. 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 No cough but has occasional wheezing and tightness. States he recently had PFT but is unsure of results. Has never been on a maintenance inhaler. 9. Ex-smoker - 1PPD x 20 years, quit 1993 Recent labs reviewed if available and all medications were reconciled/confirmed during this visit. HEALTHCARE PROVIDERS: community PCP Optometry SOCIAL HISTORY: MARITAL STATUS - Tobacco use/history - former smoker, quit 1993 Alcohol use/history - approximately 8 drinks/week, denies binge drinking Drug use/history - never SURGICAL HISTORY: lap darin arthroscopy b/l shoulders ORIF with plate left wrist following fracture tonsillectomy FAMILY HISTORY: noncontributory HISTORY: PERIOD OF SERVICE - [place] FROM Oct TO Feb COMBAT SERVICE INDICATED: No VITAL SIGNS: Blood Pressure: 142/71 (04/18/2024 15:02) Pain: 9 (08/18/2015 13:36) Patient Height: 75 in [190.5 cm] (04/18/2024 15:02) Patient Weight: 237 lb [107.50 kg] (04/18/2024 15:02) Pulse: 81 (04/18/2024 15:02) Respiration: 19 (04/18/2024 15:02) Temperature: 97.9 F [36.6 C] (04/18/2024 15:02) ASSISTIVE DEVICES: none REVIEW OF SYSTEMS: CONSTITUTIONAL: No fevers, chills, unexpected weight changes. EENT: No changes in vision. Has b/l hearing loss and tinnitus, no hearing aid. Has chronic rhinorrhea and nasal congestion. CARDIOVASCULAR: No chest pain, palpitations or peripheral edema. RESPIRATORY: No SOB at rest, + DURAN with minimal exertion, occasional wheezing. Denies cough. GASTROINTESTINAL: Denies abdominal pain, N/V/D/C. Frequent heartburn. No melena or hematochezia. GENITOURINARY: No dysuria, urinary frequency or urgency. No nocturia or hematuria. + ED symptoms. MUSCULOSKELETAL: chronic pain b/l shoulders, neck, mid/low back. SKIN: Denies rashes, open areas or concerns PSYCHIATRIC: No anxiety or depression. No sleep disturbance. NEUROLOGIC: No headaches, dizziness, numbness/tingling in the extremities or unilateral weakness. PHYSICAL EXAMINATION: General: Well-appearing [place] in no obvious distress. Mental Status: Alert and oriented x4. Head: Normocephalic, atraumatic. Eyes: PERRL. EOMI. Anicteric sclerae. ENT: TM and ear canals normal bilaterally. Deviated nasal septum, + nasal congestion. Moist oral mucosa. Posterior pharynx unremarkable. Good dentition. Neck: Supple. No JVD. No lymphadenopathy. No carotid bruit. Thyroid unremarkable. Lungs: CTAB, diminished in bases. Normal chest excursion. Eupneic respirations. CV: Heart tones S1, S2. RRR. No M/G/R. No peripheral edema. GI: Abdomen is soft and nontender. No palpable mass or organomegaly. : No CVA tenderness. Digital prostate exam deferred. MS: Crepitus present b/l shoulders, full ROM. No spinal deformity. Minimal limitation with ROM C/T/L spine. Neuro: CN II through XII grossly intact. Normal speech. Normal gait. Integument: Skin warm and dry. No rashes or lesions on visible areas. Psych: Normal mood and affect. Normal judgment. Cooperative with exam, follows commands. ALLERGIES: Patient has answered [facility] HEALTH MAINTENANCE - see end of note PREVENTIVE MEDICINE GOALS Cigarette Pack Year History DUE NOW Suicide Screen DUE NOW Toxic Exposure Screening DUE NOW Homelessness/Food Insecurity Screen Feb 02 Follow Up Colonoscopy Feb 02 Depression Screening DUE NOW Lipid Screening May 21 Pneumococcal Conjugate Vaccine (PCV15/PCDUE NOW Primary Care Provider Search DUE NOW PTSD Screening Feb 02 Tobacco Use Screening DUE NOW Screen for Abd Aortic Aneurysm DUE NOW Influenza Immunization DUE NOW Medication Reconciliation DUE NOW Td / Tdap Immunization Mar 01 Alcohol Use Screen (AUDIT-C) Feb 02 COVID-19 Immunization DUE NOW Herpes Zoster (Shingles) Vaccine DUE NOW Sexual Orientation DUE NOW RHS Screen DUE NOW Eye Care At-Risk Screen DUE NOW (Optional) Whole Health Documentation DUE NOW ASSESSMENT/PLAN: Active problems - Computerized Problem List is the source for the followin. OA - Osteoarthritis b/l shoulders, neck, mid/lower back. Continue PRN ibuprofen. 2. Deviated nasal septum secondary to nasal fracture. Declines referral to ENT 3. Perennial allergic rhinitis - Continue Binta, Singulair. 4. Secondary erectile dysfunction - difficulty obtaining erection. Viagra ordered. Discussed side effects, risk, benefit. 5. Tinnitus b/l ears - hx noise exposure. Declines referral to audiology. 6. Bilateral hearing loss, no hearing aids required. Declines referral to ENT 7. Gastroesophageal reflux disease - continue Rx, avoid food triggers. Avoid overeating, lying down immediately following meals. 8. 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 Start Wixela daily, referral made to pulmonology. LDCT ordered. Continue albuterol PRN. 9. Ex-smoker - 1PPD x 20 years, quit 1993. LDCT, AAA screen ordered. Routine and screening labs ordered FOLLOW UP: Return to clinic as noted below and/or sooner PRN UPCOMING APPOINTMENTS: 04/18/2024 15:00 CWM/SO/PACT 7 No barriers noted; patient understands and agrees to current treatment plan. If patient has any questions, concerns or changes in current health status he/she will call or come in to the [facility]. A total of 60 minutes were spent F2F with the patient during this encounter and over half that time was spent on counseling and coordination of care. We discussed in depth all current health conditions and management of these conditions. Appropriate referrals were made. HM: Lipid Screening: Lipid profile ordered at this encounter. Primary Care Provider Search: Patient receiving outside Primary Care and [facility] Primary Care. Screen for Abd Aortic Aneurysm: Order Ultrasound Medication Reconciliation: Outpatient: Has the patient been taking medications as documented in the EMLR? YES: The patient has been taking medications as documented in the EMLR. Essential Medication List for Review used to complete this medication reconciliation. INCLUDED IN THIS LIST: Alphabetical list of active outpatient prescriptions dispensed from this [facility] (local) and dispensed from another [facility] or [facility] facility (remote) as well as inpatient orders (local, pending and active), local clinic medications, locally documented non-VA medications, and local prescriptions that have or been discontinued in the past 90 days. - All changes in medications, including all non-VA/Herbal/OTC medications were entered into CPRS. - If there were any medications the patient should no longer take, they were discontinued. - The patient/caregiver was instructed to update this list, discard old lists, and take this list to the next appointment, whether with a VA or non-VA provider. Eye Care At-Risk Screen : Patient identified to be at risk for the following eye condition(s): MACULAR DEGENERATION: Macular Degeneration Risk Factors Information: Reminder Term: VA-AMD RISK FACTORS Encounter Diagnosis: 02/02/2015@08:30 V15.82 (ICD-9-CM) Personal History of Tobacco Use rank: SECONDARY Prov. Narr. - Ex-smoker ([facility] [id number]) Action: No Referral Ordered: Eye exam completed elsewhere by an Facility Sales And Admin or Plant Reliability Engineer Exam Information: Date: November 06, 2023 Findings/Comment approximate date per patient Pneumococcal Conjugate Vaccine (PCV15/PCV20): Pneumococcal vaccine given previously - written records available Documented: PNEUMOCOCCAL POLYSACCHARIDE PPV23 Historical Date Administered: Aug 11, 2023 Information Source: FROM PATIENT'S RECALL /ERIC Forrester CERTIFIED NURSE PRACTITIONER Signed: 04/21/2024 17:42 04/24/2024 ADDENDUM STATUS: COMPLETED please notify labs are normal/stable. /ERIC Forrester CERTIFIED NURSE PRACTITIONER Signed: 04/24/2024 08:56 Receipt Acknowledged By: 04/24/2024 09:05 /sally RIVERO LPN LPN 04/24/2024 ADDENDUM STATUS: COMPLETED [employer] was unable to reach generic voice message was left. /sally RIVERO LPN LPN Signed: 04/24/2024 09:07 04/30/2024 ADDENDUM STATUS: COMPLETED Please notify patient his abdominal ultrasound to screen for aneurysm is normal /ERIC Forrester CERTIFIED NURSE PRACTITIONER Signed: 04/30/2024 09:46 Receipt Acknowledged By: * AWAITING SIGNATURE * ELPIDIO RIVERO 04/30/2024 ADDENDUM STATUS: COMPLETED Please notify patient his chest CT for lung cancer screening showed restrictive lung disease (expected in someone with smoking history) but otherwise normal. /michael/ ERIC DUMONT CERTIFIED NURSE PRACTITIONER Signed: 04/30/2024 10:10 Receipt Acknowledged By: * AWAITING SIGNATURE * ELPIDIO RIVERO [facility]
--- OUTSIDE RECORDS SUMMARY | 2024-08-12 09:35 | XMS_ITS | Encounter Summary ---
Author Name [place] Address [address] [place] [address] Care Team Providers Care Reheater Name Role Phone VENECIA MOSQUERA Primary Care [...] Policy Vo [facility] Oct 05, 2017 [id number] SU DARNELL SPOUSE [facility] Feb 04, 2013 [id number] SU DARNELL SPOUSE EXPRESS S[facility] ([id number]) PRESCRIPT ION [facility] Feb 04, 2018 [id number] [phone] MANN,SU SPOUSE EXPRESS SCRIPTS ([id number]) PRESCRIPT ION [facility] Feb 04, 2018 [id number] SU DARNELL SPOUSE MEDICARE (WNR) MEDICARE (M) PART B December 06, 2015 PART B [id number] YAAKOV DARNELL AM PATIENT MEDICARE (WNR) MEDICARE (M) PART B December 06, 2015 PART B [id number] YAAKOV DARNELL AM PATIENT MEDICARE (WNR) MEDICARE (M) PART A Oct 05, 2014 PART A [id number] [phone] YAAKOV DARNELL AM PATIENT MEDICARE (WNR) MEDICARE (M) PART A Oct 05, 2014 PART A [id number] YAAKOV DARNELL AM PATIENT UNICARE MEDICAL EXPENSE (OPT/PROF ) [facility] * Sep 07, 2016 [id number] [place] DARNELL SPOUSE UNICARE PREFERRED PROVIDER ORGANIZAT ION (PPO) [facility] * Aug 07, 2006 [id number] SU DARNELL SPOUSE UNICARE PREFERRED PROVIDER ORGANIZAT ION (PPO) [facility] N Aug 07, 2006 [id number] SU DARNELL SPOUSE Selected Encounter This section includes the information on record at [place] for the Encounter. Date/Time Encounter Type Encounter Description Reason Pro vider Source Mar 07, 2024 10:19 AM Outpatient Encounter PRIMARY CARE/MEDICINE IHE Encounter [...] - Chemi stry Order URINALYSIS URINE SP [place] Apr 19, 2024 04:05 PM Consult Order COMMUNITY CARE-PULMONARY Cons Cableway Operator's Choice [place] Encounter Notes: All associated encounter notes This section contains the clinical notes associated to the Encounter. Date/Time Encounter Note(s) Provider Source Mar 07, 2024 10:19 AM ADMINISTRATIVE NOT E: LOCAL TITLE: ADMINISTRATIVE NOTE STANDARD TITLE: ADMINISTRATIVE NOTE DATE OF NOTE: MAR 07, 2024@10:19 ENTRY DATE: MAR 07, 2024@10:19:46 AUTHOR: DANIEL MILTON EXP COSIGNER: URGENCY: STATUS: COMPLETED Corporate Legal Manager called to [X} Schedule primary care appt [ ] Reschedule primary care appt. [ ] Remind of upcoming primary care appt. SPOKE WITH: [ ] Fasting blood work needed, and vet reminded. [ ] Non fasting blood work needed, and vet reminded. [X} No labs needed. [ ] UNABLE TO REACH : [X} Left voicemail. [ ] Unable to leave voicemail. [ ] No phone number available/no working phone number [X} Mailed Letter NEW PT 60 MINUTE APPT PACT 7 /michael/ DANIEL MILTON AMSA Signed: 03/07/2024 10:21 DANIEL MILTON
--- OUTSIDE RECORDS SUMMARY | 2024-08-12 09:35 | XMS_ITS ---
Author Name [facility] [place] Address [address] [place] [address] Care Team Providers Care Brickmason Contractor Name Role Phone VENECIA MOSQUERA Primary Care [...] [facility] Oct 05, [phone] [id number] [phone] SU DARNELL SPOUSE [facility] Feb 04, 2013 [id number] [phone] SU DARNELL SPOUSE [facility] ([id number]) [facility] Feb 04, 2018 [id number] MANN,SU SPOUSE [facility] ([id number]) [facility] Feb 04, 2018 [id number] SU DARNELL SPOUSE MEDICARE (WNR) MEDICARE (M) PART B December 06, 2015 PART B [id number] YAAKOV DARNELL AM PATIENT MEDICARE (WNR) MEDICARE (M) PART B December 06, 2015 PART B [id number] YAAKOV DARNELL AM PATIENT MEDICARE (WNR) MEDICARE (M) PART A Oct 05, 2014 PART A [id number] YAAKOV DARNELL AM PATIENT MEDICARE (WNR) MEDICARE (M) PART A Oct 05, 2014 PART A [id number] YAAKOV DARNELL AM PATIENT UNICARE MEDICAL EXPENSE (OPT/PROF ) [facility] * Sep 07, 2016 [id number] SU DARNELL SPOUSE UNICARE PREFERRED PROVIDER ORGANIZAT ION (PPO) [facility] * Aug 07, 2006 [id number] SU DARNELL SPOUSE UNICARE PREFERRED PROVIDER ORGANIZAT ION (PPO) [facility] N Aug 07, 2006 [id number] SU DARNELL SPOUSE Selected Encounter This section includes the information on record at [place] for the Encounter. Date/Time Encounter Type Encounter Description Reason Pro vider Source Feb 15, 2024 03:00 PM Outpatient Encounter TELEPHONE PRIMARY CARE IHE Encounter Template Text not used by [place] Plan of Treatment: Future Appointments (+ 6 months) and Future Tests (+/- 45 days) The Plan of Treatment section includes future care activities for the patient from all [place] treatmentfacilities. This section includes future appointments and future orders which are active, pending or scheduled. Future Appointments This section includes appointments that were scheduled to occur 6 months from the date of the Encounter, up to a maximum of 20 appointments. The data comes from all [place] treatment facilities. Appointment Date/Time Appointment Type Appointme nt Facility Name Apr 18, 2024 03:00 PM AMBULATORY - MEDICINE [facility] Apr 30, 2024 09:00 AM AMBULATORY - NONE [place] [facility] [facility] Apr 30, 2024 09:30 AM AMBULATORY - NONE [facility] Jun 07, 2024 08:00 AM AMBULATORY - MEDICINE [place] [facility] [place] Encounter Notes: All associated encounter notes This section contains the clinical notes associated to the Encounter. Date/Time Encounter Note(s) Provider Source Feb 15, 2024 03:02 PM LETTERS: LOCAL TITLE: PATIENT LETTER (B) STANDARD TITLE: LETTERS DATE OF NOTE: FEB 15, 2024@15:02 ENTRY DATE: FEB 15, 2024@15:02:50 AUTHOR: BAKARI ZEPEDA COSIGNER: URGENCY: STATUS: COMPLETED == [facility] [address] [place] [id number] * * = Date: 06/20/24 Dear : Donaldo Thank you for choosing the [facility] ([place]) [facility]. The Whole Health Program aims to support you in pursuing what matters most to you, and includes services that support your values and overall wellness. This includes the following offerings: * Yoga * Acupuncture * [place] Acupuncture for Acute Pain (offered weekly; drop-in or scheduled) * Individual health coaching * Coverstitch Elastic Attacher * Biofeedback for Hypertension and Anxiety * Guided Imagery Group * Meditation Group * Cancer Support Group * Stress Management Group ( Stress Less ) The following require no referral from a provider, and can be initiated by you at any time: * Yoga * Meditation * [place] Acupuncture * Cancer Support Group * Individual Health Coaching * Stress Management Group ( Stress Less ) If interested in any of the above offerings, please reach out to the Whole Health Team at ext. [phone]. To schedule consult-required services, or if you would like more information regarding VA health care benefits, please call toll free at [phone]), visit the VA website at [email or web address].gov/[email or web address] [email or web address], or contact your local [place] [facility] Center. If you have any questions, please do not hesitate to contact the Department of [place] call center. Sincerely. Dr. Tabby Grey [facility] and Integrated Traffic Engineer [facility] Direct [facility] Feb 15, 2024 03:00 PM PREVENTIVE MEDICIN E NURSING NOTE: LOCAL TITLE: CLINICAL REMINDERS/NURSING STANDARD TITLE: PREVENTIVE MEDICINE NURSING NOTE DATE OF NOTE: FEB 15, 2024@15:00 ENTRY DATE: FEB 15, 2024@15:00:46 AUTHOR: BAKARI ZEPEDA EXP COSIGNER: URGENCY: STATUS: COMPLETED Advance Directive Screen MH AD: Patient does not have an Advance Directive completed and is requesting more information. The patient received education about Advance Directives and written notification of his/her rights. Vet was sent an advanced directive and was asked to fill out and bring in for PCP appt. /michael/ BAKARI ZEPEDA MSN Ed., BSN ACTIVITIES OFFICER NURSE Signed: 06/20/2024 11:46 BAKARI ZEPEDA [facility]
--- OUTSIDE RECORDS SUMMARY | 2024-08-12 09:35 | XMS_ITS | Encounter Summary ---
Author Name [facility] [place] Organization [place] Address [address] [place] [address] Care Team Providers Care Slug Press Operator Name Role Phone VENECIA MOSQUERA Primary Care [...] [facility] Oct 05, 2017 [id number] SU DARNELL SPOUSE [facility] Feb 04, 2013 62 [id number] [phone] SU DARNELL SPOUSE EXPRESS SCRIPTS ([id number]) PRESCRIPT ION [facility] Feb 04, 2018 [id number] [phone] MANN,SU SPOUSE EXPRESS SCRIPTS ([id number]) PRESCRIPT ION [facility] Feb 04, 2018 [id number] [phone] SU DARNELL SPOUSE MEDICARE (WNR) MEDICARE (M) PART B December 06, 2015 PART B [id number] [phone] YAAKOV DARNELL AM PATIENT MEDICARE (WNR) MEDICARE (M) PART B December 06, 2015 PART B [id number] YAAKOV DARNELL AM PATIENT MEDICARE (WNR) MEDICARE (M) PART A Oct 05, 2014 PART A [id number] [phone] YAAKOV DARNELL AM PATIENT MEDICARE (WNR) MEDICARE (M) PART A Oct 05, 2014 PART A [id number] YAAKOV DARNELL AM PATIENT UNICARE MEDICAL EXPENSE (OPT/PROF ) [facility] * Sep 07, 2016 [id number] SU DARNELL SPOUSE UNICARE PREFERRED PROVIDER ORGANIZAT ION (PPO) [facility] * Aug 07, 2006 [id number] SU DARNELL SPOUSE UNICARE PREFERRED PROVIDER ORGANIZAT ION (PPO) [facility] INDEM N Aug 07, 2006 [id number] [phone] SU DARNELL SPOUSE Selected Encounter This section includes the information on record at [place] for the Encounter. Date/Time Encounter Type Encounter Description Reason Pro vider Source Feb 29, 2024 12:18 PM Outpatient Encounter PRIMARY CARE/MEDICINE IHE Encounter Template Text not used by [place] Plan of Treatment: Future Appointments (+ 6 months) and Future Tests (+/- 45 days) The Plan of Treatment section includes future care activities for the patient from all [place] treatmentfacilities. This section includes future appointments and future orders which are active, pending or scheduled. Future Appointments This section includes appointments that were scheduled to occur 6 months from the date of the Encounter, up to a maximum of 20 appointments. The data comes from all [place] treatment facilities. Appointment Date/Time Appointment Type Appointme nt Facility Name Apr 18, 2024 03:00 PM AMBULATORY - MEDICINE [facility] [place] Apr 30, 2024 09:00 AM AMBULATORY - NONE [place] [facility] Apr 30, 2024 09:30 AM AMBULATORY - NONE [facility] Jun 07, 2024 08:00 AM AMBULATORY - MEDICINE [place] [facility] Encounter Notes: All associated encounter notes This section contains the clinical notes associated to the Encounter. Date/Time Encounter Note(s) Provider Source Feb 29, 2024 12:21 PM LETTERS: LOCAL TITLE: PATIENT LETTER (T) STANDARD TITLE: LETTERS DATE OF NOTE: FEB 29, 2024@12:21 ENTRY DATE: FEB 29, 2024@12:21:45 AUTHOR: SHIRIN QUIROGA EXP COSIGNER: URGENCY: STATUS: COMPLETED [facility] Toll Free Number Primary Care Telephone Assistance can be reached at extension [phone] [facility] scheduling can be reached at extension [phone] [facility] scheduling can be reached at ext [phone] JAYNA [address] [place], [place], [address] Date: FEB 29, 2024 Dear [place]: Thank you for choosing [facility] as your primary choice for health care. As a partner in your health care, we are attempting to contact you because we have been unsuccessful in reaching you by phone. We want to assure you that we are doing everything possible to schedule veterans for their appointments. Please call us at [phone] to speak with a staff member who can assist you with securing a NEW PATIENT appointment. Thank you for your service and we look forward to hearing from you soon. Sincerely, Your Primary Care Team [facility] [address] [address] [place] [address] [phone] [facility] [address] [place] [address] [place] [address] [phone] [facility] [address] [facility],1st Floor [address] [place] [address] [place] [address] SHIRIN QUIROGA [place] Feb 29, 2024 12:18 PM ADMINISTRATIVE NOT E: LOCAL TITLE: ADMINISTRATIVE NOTE STANDARD TITLE: ADMINISTRATIVE NOTE DATE OF NOTE: FEB 29, 2024@12:18 ENTRY DATE: FEB 29, 2024@12:19:01 AUTHOR: SHIRIN QUIROGA EXP COSIGNER: URGENCY: STATUS: COMPLETED This policy writer received the below VIA teams from enrollemnt Received an email stating that this would like to establish care with a PCP in [place]. He said he called the main appointment line a month ago but no one ever got back to him. I appreciate the help. Called to schedule appointment with Primary Care PHONE NUMBER [CELLULAR] - PATIENT PHONE - Appointment type: Office, VVC ====== First call to (unsuccessful scheduling), VM left Unable to Contact & Letter sent to Upcoming Appointments: No data available /michael/ Shirin Quiroga ADVANCED HEAVY EQUIPMENT OPERATOR APPRENTICE Signed: 02/29/2024 12:21 SHIRIN QUIROGA [place]
--- OUTSIDE RECORDS SUMMARY | 2024-08-12 09:35 | XMS_ITS | Encounter Summary ---
Author Name [facility] [place] Address [address] [place] [address] Care Team Providers Care Finishing Operator Name Role Phone VENECIA MOSQUERA Primary [...] [facility] Oct 05, 2017 [id number] SU DARNELL SPOUSE [facility] Feb 04, 2013 [id number] [phone] SU DARNELL SPOUSE EXPRESS SCRIPTS ([id number]) PRESCRIPT ION [facility] Feb 04, 2018 [id number] [phone] MANN,SU SPOUSE EXPRESS SCRIPTS ([id number]) PRESCRIPT ION [facility] Feb 04, 2018 [id number] SU DARNELL SPOUSE MEDICARE (WNR) MEDICARE (M) PART B December 06, 2015 PART B [id number] YAAKOV DARNELL AM PATIENT MEDICARE (WNR) MEDICARE (M) PART B December 06, 2015 PART B [id number] YAAKOV DARNELL AM PATIENT MEDICARE (WNR) MEDICARE (M) PART A Oct 05, 2014 PART A [id number] YAAKOV DARNELL AM PATIENT MEDICARE (WNR) MEDICARE (M) PART A Oct 05, 2014 PART A [id number] YAAKOV DARNELL AM PATIENT UNICARE MEDICAL EXPENSE (OPT/PROF ) [facility] * Sep 07, 2016 [id number] SU DARNELL SPOUSE UNICARE PREFERRED PROVIDER ORGANIZAT ION (PPO) [facility] * Aug 07, 2006 [id number] SU DARNELL SPOUSE UNICARE PREFERRED PROVIDER ORGANIZAT ION (PPO) [facility] N Aug 07, 2006 [id number] SU DARNELL SPOUSE Selected Encounter This section includes the information on record at [place] for the Encounter. Date/Time Encounter Type Encounter Description Reason Pro vider Source Mar 18, 2024 11:17 AM Outpatient Encounter PRIMARY CARE/MEDICINE IHE Encounter Template Text not used by [place] Plan of Treatment: Future Appointments (+ 6 months) and Future Tests (+/- 45 days) The Plan of Treatment section includes future care activities for the patient from all [place] treatmentfacilities. This section includes future appointments and future orders which are active, pending or scheduled. Future Appointments This section includes appointments that were scheduled to occur 6 months from the date of the Encounter, up to a maximum of 20 appointments. The data comes from all [place] treatment facilities. Appointment Date/Time Appointment Type Appointme nt Facility Name Apr 18, 2024 03:00 PM AMBULATORY - MEDICINE [facility] [place] Apr 30, 2024 09:00 AM AMBULATORY - NONE [facility] Apr 30, 2024 09:30 AM AMBULATORY - NONE [facility] Jun 07, 2024 08:00 AM AMBULATORY - MEDICINE [place] [facility] [facility] Active, Pending, [...] of theEncounter. The data comes from all [place] treatment facilities. Test Date/Time Test Type Test Details Facility Name Apr 18, 2024 12:00 AM Laboratory - Chemi stry Order URINALYSIS URINE SP [place] Apr 19, 2024 04:05 PM Consult Order COMMUNITY CARE-PULMONARY Cons Montessori Lead Teacher's Choice [place] Encounter Notes: All associated encounter notes This section contains the clinical notes associated to the Encounter. Date/Time Encounter Note(s) Provider Source Mar 18, 2024 11:17 AM PRIMARY CARE NOTE: LOCAL TITLE: WALK-IN NOTE PRIMARY CARE (T) STANDARD TITLE: PRIMARY CARE NOTE DATE OF NOTE: MAR 18, 2024@11:17 ENTRY DATE: MAR 18, 2024@11:17:35 AUTHOR: LEONARDO LAZCANO EXP COSIGNER: URGENCY: STATUS: COMPLETED <====Click to Start Advanced Medical Support Pipestem presents to the Primary Care clinic with the following request: [ ]Medication Renewal/Refill [ ]Consultation with Team RN [ ]Symptoms [ X ]Other The Pipestem states they are: [ ]Waiting [ X ]Not Waiting No Walk in visit scheduled with PACT Nurse [ X ] At this encounter the 's demographics were verified. [ X ] At this encounter the Pipestem's Insurance information was verified. [ X ] At this encounter the below scheduled visits for the Pipestem were discussed and appointment reminder card was offered. Future appointments: 04/18/2024 15:00 CWM/SO/PACT 7 EXHAUST EQUIPMENT OPERATOR packet returned placed in provider mailbox. /michael/ LEONARDO CARRANZA Signed: 03/18/2024 11:18 LEONARDO LAZCANO
--- OUTSIDE RECORDS SUMMARY | 2024-08-12 09:35 | XMS_ITS ---
Author Name [facility] [place] [facility] [place] Address [address] [place] [address] Care Team Providers Care Diesel Powerplant Mechanic Name Role Phone CARMEN PANIAGUA Primary Care [...] Policy Vo [facility] Oct 05, 2017 [id number] SU DARNELL SPOUSE [facility] Feb 04, 2013 [id number] [phone] SU DARNELL SPOUSE EXPRESS SCRIPTS ([id number]) PRESCRIPT ION [facility] Feb 04, 2018 [id number] MANN,SU SPOUSE EXPRESS SCRIPTS ([id number]) PRESCRIPT ION [facility] Feb 04, 2018 [id number] SU DARNELL SPOUSE MEDICARE (WNR) MEDICARE (M) PART B December 06, 2015 PART B [id number] [phone] YAAKOV DARNELL AM PATIENT MEDICARE (WNR) MEDICARE (M) PART B December 06, 2015 PART B [id number] YAAKOV DARNELL AM PATIENT MEDICARE (WNR) MEDICARE (M) PART A Oct 05, 2014 PART A [id number] YAAKOV DARNELL AM PATIENT MEDICARE (WNR) MEDICARE (M) PART A Oct 05, 2014 PART A [id number] YAAKOV DARNELL AM PATIENT UNICARE MEDICAL EXPENSE (OPT/PROF ) [facility] * Sep 07, 2016 [id number] SU DARNELL SPOUSE UNICARE PREFERRED PROVIDER ORGANIZAT ION (PPO) [facility] * Aug 07, 2006 [id number] SU DARNELL SPOUSE UNICARE PREFERRED PROVIDER ORGANIZAT ION (PPO) [facility] N Aug 07, 2006 [id number] SU DARNELL SPOUSE Selected Encounter This section includes the information on record at [place] for the Encounter. Date/Time Encounter Type Encounter Description Reason Pro vider Source Jun 20, 2024 11:48 AM Outpatient Encounter TELEPHONE PRIMARY CARE IHE Encounter [...] Date/Time Appointment Type Appointme nt Facility Name Oct 14, 2024 09:30 AM [facility] Social History: Smoking Status (Most current) and Tobacco Use (All prior to encounter date) This section includes the most current, and the historical, smoking and tobacco- related health factors from the [facility] facility where the Encounter took place. Current Smoking Status This section includes the most current smoking, or tobacco-related health factor, from the VA facility where the Encounter took place. Date/Time Current Smoking Status Comment Facil ity Apr 18, 2024 03:03 PM VA-TOBACCO FORMER USER [facility] Tobacco Use History This section includes a history of the smoking, or tobacco-related health factors, that were collected on or before the date of the Encounter. The data comes from the [place] facility where the Encounter took place. Date/Time Smoking Status/Tobacco Use Comment Marco romeo Apr 18, 2024 03:03 PM VA-TOBACCO QUIT 15 YRS OR MORE [facility] Encounter Notes: All associated encounter notes This section contains the clinical notes associated to the Encounter. Date/Time Encounter Note(s) Provider Source Jun 20, 2024 11:48 AM LETTERS: LOCAL TITLE: PATIENT LETTER (B) STANDARD TITLE: LETTERS DATE OF NOTE: JUN 20, 2024@11:48 ENTRY DATE: JUN 20, 2024@11:48:12 AUTHOR: BAKARI ZEPEDA COSIGNER: URGENCY: STATUS: [place] [address] [phone] Ext [phone] * Date: 06/20/24 Dear : Donaldo Thank you for choosing the Department of [facility] Affairs ([place]) [facility]. Please be a few minutes early to this appt- about 15 mins. We would like to update your demographic information. To schedule or if you would like more information regarding [place] health care benefits, please call toll free at [phone]), visit the [place] website at [email or web address] , or contact your local [place] Medical [place]. Welcome to patient aligned care team (Pact Team 7) with (Carmen Paniagua NP). Prior to meeting you at your new patient appointment we are requesting some of your past medical history so that we may provide you with the exceptional care you deserve. Please note that it is very helpful to have these documents prior to your appointment date as the more information we have the better we will be able to meet your needs: * Last History & Physical * Immunization records * Medication list * Diagnosis list * Most recent labs * Diagnostic screens (Colonoscopy, Abdominal Aortic Aneurysm screen, Mammograms, PAPS, etc.) We have scheduled the following appt with you to see your new PCP: Your appt is scheduled for (10/14/24@0930)- This appt will be about an hour long appt which will give you and your Provider a chance to get to know each other. You may either bring your records with you to your scheduled appointment, or drop them off ahead of your appointment or you may have them faxed to ATTN: DOMINIQUE/BERNIE/[id number] If you have any questions, please do not hesitate to contact the Department of 's Affairs call center at Ext [phone]. Just so that you know if you're feeling sick we have sick call hours at the [facility], and the [facility]- Mon thru Monday 08-1530- first come first serve- walk-in basis. [facility] has sick call hours Mon-Mon- 11-12, and 3P-4P- first come, first serve, walk-in basis- no appt needed. You can utilize our sick call system once you have seen your Primary Care Physician for the first time. Audiology Phone number- [phone] Ext [phone] Optometry Phone Number- [phone] Ext [phone] Mental Health Clinic- [phone] Ext- [phone] Eligibility/Enrollment- [phone] [phone] Veterans Rep [phone] Ext [phone] JO Van [phone] VA Transportation [phone] Ext [phone], or,[phone] [place] Act [phone](Call within 72hrs of being seen in an acute care setting) Sincerely. [facility] [address] [place] [address] Phone: Ext [phone] Upcoming Appointments: 10/14/24@0930- CWM/SO/YSYV-[id number]-KuqexdgSiva Zepeda MSN Ed., BSN, RN [facility] [address] [address] [place] [address] - Ext [phone] [place] [address] St [phone] [place] [address] BAKARI ZEPEDA [place] [facility]
--- OUTSIDE RECORDS SUMMARY | 2024-08-12 09:35 | XMS_ITS | Encounter Summary ---
Author Name [facility] [place] Address [address] [place] [address] Care Team Providers Care Salvage Winder Name Role Phone VENECIA MOSQUERA Primary Care [...] Policy Vo [facility] Oct 05, 2017 [id number] [phone] SU DARNELL SPOUSE [facility] Feb 04, 2013 [id number] SU DARNELL SPOUSE EXPRESS SCRIPTS ([id number]) PRESCRIPT ION [facility] Feb 04, 2018 [id number] MANN,SU SPOUSE EXPRESS SCRIPTS ([id number]) PRESCRIPT ION [facility] Feb 04, 2018 [id number] [phone] SU DARNELL SPOUSE MEDICARE (WNR) MEDICARE (M) PART B December 06, 2015 PART B [id number] [phone] YAAKOV DARNELL AM PATIENT MEDICARE (WNR) MEDICARE (M) PART B December 06, 2015 PART B [id number] YAAKOV DARNELL AM PATIENT MEDICARE (WNR) MEDICARE (M) PART A Oct 05, 2014 PART A [id number] [phone] YAAKOV DARNELL AM PATIENT MEDICARE (WNR) MEDICARE (M) PART A Oct 05, 2014 PART A [id number] YAAKOV DARNELL AM PATIENT UNICARE MEDICAL EXPENSE (OPT/PROF ) [facility] * Sep 07, 2016 [id number] SU DARNELL SPOUSE UNICARE PREFERRED PROVIDER ORGANIZAT ION (PPO) [facility] * Aug 07, 2006 [id number] SU DARNELL SPOUSE UNICARE PREFERRED PROVIDER ORGANIZAT ION (PPO) [facility] IN[facility] N Aug 07, 2006 [id number] [phone] SU DARNELL SPOUSE Selected Encounter This section includes the information on record at [place] for the Encounter. Date/Time Encounter Type Encounter Description Reason Pro vider Source Apr 18, 2024 12:00 AM Outpatient Encounter EVENT (HISTORICAL) IHE Encounter Template Text not used by [place] Plan of Treatment: Future Appointments (+ 6 months) and Future Tests (+/- 45 days) The Plan of Treatment section includes future care activities for the patient from all [place] treatmentfacilities. This section includes future appointments and future orders which are active, pending or scheduled. Future Appointments This section includes appointments that were scheduled to occur 6 months from the date of the Encounter, up to a maximum of 20 appointments. The data comes from all [place] treatment facilities. Appointment Date/Time Appointment Type Appointme nt Facility Name Apr 30, 2024 09:00 AM AMBULATORY - NONE [place] [facility] [place] [facility] Apr 30, 2024 09:30 AM AMBULATORY - NONE [place] [facility] [place] [facility] Jun 07, 2024 08:00 AM AMBULATORY - MEDICINE [place] [facility] [facility] Oct 14, 2024 09:30 AM AMBULATORY - MEDICINE [place] [place] Active, Pending, and Scheduled Orders This section includes a listing of several types of active, pending, and scheduled orders, including clinic medications orders, diagnostic test orders, procedure orders and consult orders; where the start date of the order is 45 days before the date of the Encounter or 45 days after the date of theEncounter. The data comes from all [place] treatment facilities. Test Date/Time Test Type Test Details Facility Name Apr 18, 2024 12:00 AM Laboratory - Chemi stry Order URINALYSIS URINE SP [place] Apr 19, 2024 04:05 PM Consult Order COMMUNITY CARE-PULMONARY Cons Public Service Director's Choice [place] Lab Results: +/- 30 days of the encounter This section includes the Chemistry and Hematology Lab Results on record with [place] for the patient. Radiology Reports and Pathology Reports are provided separately, in subsequent sections. Lab Results This section contains the Chemistry/Hematology Results that were resulted 30 days before or 30 daysafter the date of the Encounter. Date/Time Source Result Type Result - Unit Interpretation Reference Range Comment Apr 22, 2024 11:10 AM [place] TSH Specimen Type: SERUM No comment entered. Ordering Provider: VENECIA MOSQUERA Report Released Date/Time: Apr 18, 2024 03:12 PM Reporting Lab: [address] [address] Performing Lab: [address] [address] TSH 2.91 u[IU]/mL 0.35-5.00 Apr 22, 2024 11:10 AM [place] HEMOGLOBIN A1C PANEL Specimen Type: BLOOD Comment: [...] Apr 18, 2024 03:12 PM Reporting Lab: [address] [address] Performing Lab: [address] [address] HEMOGLOBIN A1C 5.0 4.0-5.6 Apr 22, 2024 11:10 AM [place] VITAMIN D (25-OH) Specimen Type: SERUM No comment entered. Ordering Provider: VENECIA MOSQUERA Report Released Date/Time: Apr 18, 2024 03:12 PM Reporting Lab: [address] [address] Performing Lab: [address] [address] VITAMIN D (25-OH) 27 ng/mL 20-50 Apr 22, 2024 11:10 AM [place] CBC Specimen Type: BLOOD No comment entered. Ordering Provider: VENECIA MOSQUERA Report Released Date/Time: Apr 18, 2024 03:12 PM Reporting Lab: [address] [address] Performing Lab: [address] [address] WBC 5.27 10*3/uL 4.50-11.00 RBC 4.49 10*6/uL 4.23-5.66 HGB 15.0 g/dL 12.8-17 HCT 42.0 39.2-50.4 MCV 93.5 fL 82-99 MCHC 35.7 g/dL H 30.8-35.1 PLT 212 10*3/uL 140-360 RDW-CV 12.7 12.0-16.0 MCH 33.4 pg H 26.2-32.6 Apr 22, 2024 11:10 AM [place] LIPID PANEL FASTING Specimen Type: SERUM No comment entered. Ordering Provider: VENECIA MOSQUERA Report Released Date/Time: Apr 18, 2024 03:12 PM Reporting Lab: [address] [address] Performing Lab: [address] [address] CHOLESTEROL 141 mg/dL TRIGLYCERIDE 195 mg/dL H 0-150 LDL calculated 61 mg/dL 0-129 CHOL/HDL 3.4 HDL CHOLESTEROL 41 mg/dL 40-60 Apr 22, 2024 11:10 AM [place] BASIC METABOLIC PANEL (fasting) Specime n Type: SERUM No comment entered. Ordering Provider: DEMETRI,VENECIA C Report Released Date/Time: Apr 18, 2024 03:12 PM Reporting Lab: [facility] [address] [facility] [address] Performing Lab: [address] [address] UREA NITROGEN 17 mg/dL 7-25 GLUCOSE 92 mg/dL 65-100 SODIUM 138 mmol/L 135-145 POTASSIUM 4.4 mmol/L 3.5-5.0 CHLORIDE 104 mmol/L 100-110 CO2 26 meq/L 20-30 CREATININE, Serum 0.88 mg/dL 0.50-1.40 eGFR(CKD-EPI 2020) 90 mL/min >60 Apr 22, 2024 11:10 AM [place] LIVER FUNCTION Specimen Type: SERUM No comment entered. Ordering Provider: VENECIA MOSQUERA Report Released Date/Time: Apr 18, 2024 03:12 PM Reporting Lab: [address] [address] Performing Lab: [address] [address] PROTEIN,TOTAL 7.2 g/dL 6.0-8.3 ALBUMIN 4.1 g/dL 3.5-5.0 ALKALINE PHOSPHATASE 76 U/L 40-150 AST 42 U/L H 5-34 ALT 58 U/L H BILIRUBIN, TOTAL 0.7 mg/dL 0.2-1.2 Social History: Smoking Status (Most current) and Tobacco Use (All prior to encounter date) This section includes the most current, and the historical, smoking and tobacco- related health factors from the [place] facility where the Encounter took place. Current Smoking Status This section includes the most current smoking, or tobacco-related health factor, from the [place] facility where the Encounter took place. Date/Time Current Smoking Status Comment Elizabeth portillo Apr 18, 2024 03:03 PM VA-TOBACCO FORMER USER [facility] Tobacco Use History This section includes a history of the smoking, or tobacco-related health factors, that were collected on or before the date of the Encounter. The data comes from the [place] facility where the Encounter took place. Date/Time Smoking Status/Tobacco Use Comment F acility Apr 18, 2024 03:03 PM VA-TOBACCO QUIT 15 YRS OR MORE [facility] Radiology Reports: +/- 30 days of the [...] the Encounter. The data comes from all [place] treatment facilities. Date/Time Radiology Report Provider Source Apr 30, 2024 08:57 AM ULTRASOUND AAA SCREENING: JAYNA DARNELL [id number] -1950 M Exm Date: APR 30, 2024@08:57 Req Phys: VENECIA MOSQUERA Loc: CWM/SO/PACT 7 (Req'g Loc) Img Loc: ULTRASOUND Service: Unknown [place] [address] (Case [id number] COMPLETE) ULTRASOUND AAA SCREENING (US Detailed) CPT:96973 Reason for Study: former smoker, quit 1993, Screening for AAA Clinical History: Some ultrasound tests require a prep. Report Status: Verified Date Reported: APR 30, 2024 Date Verified: APR 30, 2024 Coat Examiner E-Sig:/ES/MILA WANG JR Report: Study: AAA screening [...] Primary Interpreting Staff: MILA WANG JR, Radiologist (Coat Examiner) /MILA TRAN JR [facility] Apr 30, 2024 08:[address] THORAX W/O CONT: JAYNA DARNELL [id number] -1950 M Exm Date: APR 30, 2024@08:49 Req Phys: VENECIA MOSQUERA Pat Loc: CWM/SO/PACT 7 (Req'g Loc) Img Loc: NHM/CT Service: Unknown [place] [facility] TAMARA GALLAGHER [id number] (Case 83 COMPLETE) CT THORAX W/O CONT (CT Detailed) CPT:20702 Reason for Study: former smoker, quit 1993, + asbestos exposure in Clinical History: chronic dyspnea with minimal exertion, occasional wheezing Report Status: Verified Date Reported: APR 30, 2024 Date Verified: APR 30, 2024 Coat Examiner E-Sig:/ES/MILA WANG JR Report: Study: Noncontrast CT [...] Primary Interpreting Staff: MILA WANG JR, Radiologist (Coat Examiner) /VIRGINIE WANG,MILA James [facility]
--- OUTSIDE RECORDS SUMMARY | 2024-08-12 09:35 | XMS_ITS | Encounter Summary ---
Author Name [place] Address [address] [place] [address] Care Team Providers Care Integration Specialist Name Role Phone VENECIA MOSQUERA Primary Care [...] Policy Vo [facility] Oct [facility], 2017 [id number] [phone] SU DARNELL SPOUSE [facility] Feb 04, 2013 [id number] SU DARNELL SPOUSE EXPRESS SCRIPTS ([id number]) PRESCRIPT ION [facility] Feb 04, 2018 [id number] [phone] SU DARNELL SPOUSE EXPRESS SCRIPTS ([id number]) PRESCRIPT ION [facility] Feb 04, 2018 [id number] SU DARNELL SPOUSE MEDICARE (WNR) MEDICARE (M) PART B December 06, 2015 PART B [id number] YAAKOV DARNELL AM PATIENT MEDICARE (WNR) MEDICARE (M) PART B December 06, 2015 PART B [id number] YAAKOV DARNELL AM PATIENT MEDICARE (WNR) MEDICARE (M) PART A Oct 05, 2014 PART A [id number] YAAKOV DARNELL AM PATIENT MEDICARE (WNR) MEDICARE (M) PART A Oct 05, 2014 PART A [id number] YAAKOV DARNELL AM PATIENT UNICARE MEDICAL EXPENSE (OPT/PROF ) [facility] * Sep 07, 2016 [id number] SU DARNELL SPOUSE [employer]ARE PREFERRED PROVIDER ORGANIZAT ION (PPO) [facility] * Aug 07, 2006 [id number] SU DARNELL SPOUSE [employer]ICARE PREFERRED PROVIDER ORGANIZAT ION (PPO) [facility] N Aug 07, 2006 [id number] [phone] SU DARNELL SPOUSE Selected Encounter This section includes the information on record at [place] for the Encounter. Date/Time Encounter Type Encounter Description Reason Pro vider Source Mar 06, 2024 12:10 PM Outpatient Encounter ADMIN PAT ACTIVTIES (MASNONCT) IHE Encounter Template Text not used by [place] Plan of Treatment: Future Appointments (+ 6 months) and Future Tests (+/- 45 days) The Plan of Treatment section includes future care activities for the patient from all [place] treatmentfacilities. This section includes future appointments and future orders which are active, pending or scheduled. Future Appointments This section includes appointments that were scheduled to occur 6 months from the date of the Encounter, up to a maximum of 20 appointments. The data comes from all [place] treatment facilities. Appointment Date/Time Appointment Type Appointme nt Facility Name Apr 18, 2024 03:00 PM AMBULATORY - MEDICINE [facility] [place] Apr 30, 2024 09:00 AM AMBULATORY - NONE [place] [facility] [place] [facility] Apr 30, 2024 09:30 AM AMBULATORY - NONE [place] [facility] [place] [facility] Jun 07, 2024 08:00 AM AMBULATORY - MEDICINE [place] [facility] [place] [facility] Active, Pending, and Scheduled Orders This section includes a listing of several types of active, pending, and scheduled orders, including clinic medications orders, diagnostic test orders, procedure orders and consult orders; where the start date of the order is 45 days before the date of the Encounter or 45 days after the date of theEncounter. The data comes from all [place] treatment facilities. Test Date/Time Test Type Test Details Facility Name Apr 18, 2024 12:00 AM Laboratory - Chemi stry Order URINALYSIS URINE SP [place] Apr 19, 2024 04:05 PM Consult Order COMMUNITY CARE-PULMONARY Cons Manager Emergency Department's Choice [place] Encounter Notes: All associated encounter notes This section contains the clinical notes associated to the Encounter. Date/Time Encounter Note(s) Provider Source Mar 06, 2024 02:00 PM ADDENDUM: LOCAL TITLE: Addendum STANDARD TITLE: ADDENDUM DATE OF NOTE: MAR 06, 2024@14:00:48 ENTRY DATE: MAR 06, 2024@14:00:48 AUTHOR: STACEY NI EXP COSIGNER: URGENCY: STATUS: COMPLETED AMSA/RN please call to schedule for a 60 min new patient appointment within 20 days, virtual or face to face to meet new pt scheduling guidelines. Appointment needs to be scheduled on or before Mar PATIENT PHONE - No data available F/U RTC should go to SO/PACT 7 /michael/ STACEY NI ONION TOPPER TRENCH TRIMMER FINE Signed: 03/06/2024 14:01 Receipt Acknowledged By: 03/07/2024 10:17 /michael/ DANIEL CARRANZA === --- Original Document --- 03/06/24 CCC: SCHEDULING ADMINISTRATION: Patient Demographics Patient Name: JAYNA DARNELL Patient Primary Phone: [phone] Patient Primary Address: [address] [place] [address] Patient : 1950 Patient Age: 73 Caller/Recipient Relation to Patient: Self Administrative Administrative Note Reason: Other Administrative Note Comments: REQUESTING TO BE SEEN FIRST TIME WITH PRIMARY CARE. WOULD LIKE TO BE SEEN AT THE [facility] FOR PRIMARY CARE. PLEASE RETURN CALL. NO SYMPTOMS. /michael/ SOTO ROGERS Signed: 03/06/2024 12:10 Receipt Acknowledged By: 03/06/2024 14:12 /michael/ YULIANA JOHNS MSA ONION TOPPER, SHASHA SANJAY * AWAITING SIGNATURE * LUPILLO QUIÑONES 03/06/2024 13:59 /es/ STACEY NI ONION TOPPER TRENCH TRIMMER FINE LASTSTACEY R [place] [facility] [facility] Mar 06, 2024 12:10 PM ADMINISTRATIVE NOTE: LOCAL TITLE: CCC: SCHEDULING ADMINISTRATION STANDARD TITLE: ADMINISTRATIVE NOTE DATE OF NOTE: MAR 06, 2024@12:10:42 ENTRY DATE: MAR 06, 2024@12:10:43 AUTHOR: SOTO ROGERS EXP COSIGNER: URGENCY: STATUS: COMPLETED CCC: SCHEDULING ADMINISTRATION Has ADDENDA Patient Demographics Patient Name: JAYNA DARNELL Patient Primary Phone: [phone] Patient Primary [address] [address] [place] [address] Patient : 1950 Patient Age: 73 Caller/Recipient Relation to Patient: Self Administrative Administrative Note Reason: Other Administrative Note Comments: REQUESTING TO BE SEEN FIRST TIME WITH PRIMARY CARE. WOULD LIKE TO BE SEEN AT THE [facility] FOR PRIMARY CARE. PLEASE RETURN CALL. NO SYMPTOMS. /michael/ SOTO ROGERS Signed: 03/06/2024 12:10 Receipt Acknowledged By: 03/06/2024 14:12 /michael/ YULIANA JOHNS MSA ONION TOPPER, SHASHA [facility] 03/11/2024 15:05 /michael/ LUPILLO QUIÑONES ONION TOPPER TERE 03/06/2024 13:59 /michael/ STACEY NI ONION TOPPER TRENCH TRIMMER FINE 03/06/2024 ADDENDUM STATUS: COMPLETED AMSA/RN please call to schedule for a 60 min new patient appointment within 20 days, virtual or face to face to meet new pt scheduling guidelines. Appointment needs to be scheduled on or before Mar PATIENT PHONE - No data available F/U RTC should go to SO/PACT 7 /michael/ STACEY NI ONION TOPPER TRENCH TRIMMER FINE Signed: 03/06/2024 14:01 Receipt Acknowledged By: 03/07/2024 10:17 /es/ DANIEL CARRANZA 03/07/2024 ADDENDUM STATUS: COMPLETED This sign writer letterer or painter left voicemail for to schedule a new patient 60 minute appointment with Pact 7. /michael/ DANIEL CARRANZA Signed: 03/07/2024 10:19 SOTO ROGERS [place] [facility]
--- OUTSIDE RECORDS SUMMARY | 2024-08-12 09:36 | XMS_ITS | Continuity of Care Document ---
Author Organization [place] - [facility], [facility] Address [address] [place] [phone] Care Team Providers Care Television Cable Installer Name Role Phone TANO LOVELACE Primary Care Provider [phone] Assessment Encounter Date Assessment Date Assessment LastModified by Organization Details LastModified Time 05/31/2024 05/31/2024 73-year-old male presents for evaluation of otitis externa. On examination he has cerumen bilaterally removed without difficulty. TMs normal to inspection. He completed antibiotic about a week ago and feels much improved but does have some mild residual soreness. He will continue to monitor this and if it does not resolve within the next few weeks he will call for reevaluation. Otherwise he will follow-up in 6 months for cerumen removal. [email or web address] Not available 05/31/2024 13:55:22 Plan of Treatment Reminders Order Date Submit Date Provider Last Modified By Organization Details Last Modified Time Details Appointments Establish ed 15 2024 09:15A M TRINIDAD BOURGEOIS PA-C Not available Not available Not available Lab None recorded. Referral None recorded. Procedures None recorded. Surgeries None recorded. Imaging None recorded. Medication Orders None recorded. Patient TargetsNo targets recorded. Patient InstructionsNo instructions recorded. Reason for Referral None Reported. Problems Name Problem SNOMED Code Status Onset Date Resolution Date Notes Provider Name and Address Organization Details Recorded Time Impacted cerumen of bilateral ears 64696276700455 08 Active 2023 TRINIADD BOURGEOIS PA-C [address] [place] [address], [phone] [place] - [facility] 13:55:29 Problem Notes None recorded. Procedures Surgical History Date Name Laterality Status Provider Name and Address Organization Details Recorded Time Cerumen removal without microscope bilat completed TRINIDAD BOURGEOIS PA-C [address] [facility],[place] [address], [place], [phone], [facility] - [facility] 05/31/2024 13:53:41 Imaging Results None recorded. Procedure Notes None recorded. Medical Equipment None Reported. Allergies No known drug allergies Medications Name Sig Start Date Stop Date Status Note LastModified by Organization Details LastModified Time atorvastati n 20 mg tablet TAKE 1 TABLET BY MOUTH EVERY DAY active Not Available Not Available No t Available famotidine 40 mg tablet TAKE 1 TABLET BY MOUTH TWICE A DAY active Not Available Not Available No t Available prednisone 20 mg tablet TAKE 2 TABLETS (20MG) BY MOUTH EVERY DAY FOR 5 DAYS active Not Available Not Available No t Available ofloxacin 0.3 % ear drops PLEASE SEE ATTACHED FOR DETAILED DIRECTION S active Not Available Not Available No t Available pantoprazol e 40 mg tablet,farhan yed release TAKE 1 TABLET BY MOUTH TWICE A DAY active Not Available Not Available No t Available montelukast 10 mg tablet TAKE 1 TABLET BY MOUTH EVERYDAY AT BEDTIME active Not Available Not Available No t Available mupirocin 2 % topical ointment APPLY TO SURGICAL SITE TWICE A DAY FOR 14 DAYS DAYS OR UNTIL FULLY HEALED 05/31 completed Not Available Not Available Not Available albuterol sulfate HFA 90 mcg/actuati on aerosol inhaler INHALE 2 PUFFS BY MOUTH EVERY 6 HOURS NEEDED 05/31 completed Not Available Not Available Not Available fluticasone propionate 50 mcg/actuati on nasal spray,suspe nsion SPRAY 2 SPRAYS INTO EACH NOSTRIL EVERY DAY active Not Available Not Available No t Available Murine Ear 6.5 % drops PLEASE SEE ATTACHED FOR DETAILED DIRECTION S active Not Available Not Available No t Available amoxicillin 875 mg-potassiu m clavulanate 125 mg tablet TAKE 1 TABLET BY MOUTH TWICE A DAY FOR 10 DAYS active Not Available Not Available No t Available Vitals Date Recorded Body height Body mass index (BMI) Body weight Provider Name and Address Organization Details Last Updated DateTime 05/31/2024 190.5 cm 28.1 kg/m2 971917.28 g Sabina Shaw [place] - [facility] 05/31/2024 13:30:20 Social History Question Answer Notes LastModified by Organizat ion Details LastModified Time Tobacco Smoking Status Never Smoker Sabina salazar [place] - [facility] 05/31/2024 13:31:29 What Is Your Level Of Alcohol Consumption? Occasional [email or web address] Information not available 05/31/2024 Sex: Unknown Functional Status None recorded. Mental Status None recorded. Family History Nothing Reported. Medical History No medical history recorded. Past Encounters Encounter ID Performer Location Encounter Start Date Encounter Closed Date Diagnosis/Indication Diagnosis SNOMED-CT Code Diagnosis ICD10 Code Diagnosis Note [id number] TRINIDAD BOURGEOIS PA-C [facility] of [address] [phone] 05/31/2024 13:11:31 05/31/2024 13:35:23 Impacted cerumen of bilateral ears [id number] H61.23 Health Concerns Section Related Observation LastModified by Organization Detai ls LastModified Time None Recorded Concern Status LastModified by Organization Details LastModified Time None Recorded Payers Encounter Date Sequence Insurance Name Policy Number Policy Vo Covered Member ID Vo Member ID Guarantor Name 05/31/2024 1 [place] [employer] [employer] Donaldo Gonzales [id number] Donaldo Gonzales 05/31/2024 2 [facility] INDEMNITY PLAN (MEDICARE SUPPLEMENT) [id number] Kira Crow Gonzales [id number] Donaldo Gonzales Notes Date Note Type Note Provider Name and Address Organization Details Recorded Time 05/31/2024 text/html 73-year-old male presents for evaluation of otitis externa. He had an ear infection recently treated by his primary care with Augmentin and ofloxacin drops. The infection has resolved but he has been left with some mild soreness in the right ear. Completed his antibiotics about a week ago. TRINIDAD BOURGEOIS PA-C [address] [place] [address], [phone], [facility] - [facility] 05/31/2024 13:56:20
--- OUTSIDE RECORDS SUMMARY | 2024-08-12 09:36 | XMS_ITS | Data Portability ---
Author Organization [place] - [facility], Allergy Address [address] [place] [phone] Care Team Providers Care Video Game Engineer Name Role Phone TANO LOVELACE Primary Care Provider Assessment Encounter Date Assessment Date Assessment LastModified [...] follow-up in 6 months for cerumen removal. [email or web address] Not available 05/31/2024 13:55:22 Plan of Treatment [...] Recorded Time Impacted cerumen of bilateral ears [id number] 08 Active 2023 TRINIDAD BOURGEOIS PA-C [address] [facility] [address], [place], [phone] [[email or web address]] [place] - [facility] 13:55:29 Problem Notes None recorded. Procedures Surgical History Date Name Laterality Status Provider Name and Address Organization Details Recorded Time Cerumen removal without microscope bilat completed TRINIDAD BOURGEOIS PA-C [address] [facility],[place] [address], [place], [phone], [facility] - [facility] 05/31/2024 13:53:41 Imaging Results None recorded. Procedure [...] Updated DateTime 05/31/2024 190.5 cm 28.1 kg/m2 815722.28 g Sabina Shaw [place] - [facility] 05/31/2024 13:30:20 Social History Question Answer Notes LastModified by Organizat ion Details LastModified Time Tobacco Smoking Status Never Smoker Sabina salazar [place] - [facility] 05/31/2024 13:31:29 What Is Your Level Of Alcohol Consumption? Occasional [email or web address] Information not available 05/31/2024 Sex: Unknown Functional Status None recorded. Mental Status None recorded. Family History Nothing Reported. Medical History No medical history recorded. Past Encounters Encounter ID Performer Location Encounter Start Date Encounter Closed Date Diagnosis/Indication Diagnosis SNOMED-CT Code Diagnosis ICD10 Code Diagnosis Note [id number] TRINIDAD BOURGEOIS PA-C [facility] of [address] [address] 05/31/2024 13:11:31 05/31/2024 13:35:23 Impacted cerumen of bilateral ears [id number] 538167 H61.23 Health Concerns Section Related Observation LastModified by Organization Detai ls LastModified Time None Recorded Concern Status LastModified by Organization Details LastModified Time None Recorded Advance Directives Directive None Recorded Payers Encounter Date Sequence Insurance Name Policy Number Policy Vo Covered Member ID Vo Member ID Guarantor Name 05/31/2024 1 [place] [employer] Donaldo Gonzales [id number] 2 Donaldo Gonzales 05/31/2024 2 [facility] INDEMNITY PLAN (MEDICARE SUPPLEMENT) [id number] KiraElsie Gonzales [id number] Donaldo Gonzales Notes Date Note Type Note [...] about a week ago. TRINIDAD BOURGEOIS PA-C [address] [place] [address], [phone], [facility] - [facility] 05/31/2024 13:56:20
== END 2024-08-12 09:28 | disposition home or self-care (01) ==
PROVIDERS: PCP Family Medicine; Visit Provider Internal Medicine Pulmonary Disease
DX: J61 Pneumoconiosis due to asbestos and other mineral fibers (principal); R06.09 Other forms of dyspnea
CPT/HCPCS: 99214

== ENCOUNTER → 2024-08-12 09:13 | Outpatient (BNVA) | payer OTHER, SELFPAY | PROVIDERS: PCP Family Medicine; Visit Provider Internal Medicine Pulmonary Disease | DX: J61 Pneumoconiosis due to asbestos and other mineral fibers (principal); R06.09 Other forms of dyspnea | CPT/HCPCS: 99212 ==

== ENCOUNTER 2025-02-21 12:37 | Outpatient (AMB) | payer OTHER, SELFPAY ==
--- OUTSIDE RECORDS SUMMARY | 2025-02-06 07:29 | XMS_ITS | Encounter Summary ---
Author Name [facility] [place] [facility] [facility] [place] Address [address] [place] [address] Care Team Providers Care Game Farm Helper Name Role Phone ROHIT SINGH Primary Care Provider Unavail able Insurance Providers: All historical and current Section [...] Vo [facility] Oct 05, 2017 [id number] [facility] Feb 04, 2013 [id number] [address] SP[address]SE [employer] ([id number]) PRESCRIPT ION [facility] Feb 04, 2018 [id number] [phone] SU DARNELL SPOUSE [employer] ([id number]) PRESCRIPT ION [facility] Feb 04, 2018 [id number] [phone] SU DARNELL SPOUSE MEDICARE (WNR) MEDICARE (M) PART B December 06, 2015 PART B [id number] [phone] YAAKOV DARNELL AM PATIENT MEDICARE (WNR) MEDICARE (M) PART B December 06, 2015 PART B [id number] YAAKOV DARNELL AM PATIENT MEDICARE (WNR) MEDICARE (M) PART A Oct 05, 2014 PART A [id number] YAAKOV DARNELL AM PATIENT MEDICARE (WNR) MEDICARE (M) PART A Oct 05, 2014 PART A [id number] YAAKOV DARNELL AM PATIENT UNICARE PREFERRED PROVIDER ORGANIZAT ION (PPO) [facility] * Aug 07, 2006 [id number] [address] SPOUSE UNICARE PREFERRED PROVIDER ORGANIZAT ION (PPO) [facility] N Aug 07, 2006 [id number] SU DARNELL SPOUSE [employer] (OPT/PROF ) [facility] IND * Sep 07, 2016 [id number] [address] SPOUSE [employer] PREFERRED PROVIDER ORGANIZAT ION (PPO) [facility] N Aug 07, 2006 [id number] [phone] SU DARNELL SPOUSE Selected Encounter This section includes the information on record at [place] for the Encounter. Date/Time Encounter Type Encounter Description Reason Pro vider Source Feb 06, 2025 11:29 AM Outpatient Encounter COMMUNITY CARE CONSULT IHE Encounter Template Text not used by [place] Plan of Treatment: Future Appointments (+ 6 months) and Future Tests (+/- 45 days) The Plan of Treatment section includes future care activities for the patient from all [place] treatmentfacilities. This section includes future appointments and future orders which are active, pending or scheduled. Future Appointments This section includes appointments that were scheduled to occur 6 months from the date of the Encounter, up to a maximum of 20 appointments. The data comes from all [place] treatment facilities. Appointment Date/Time Appointment Type Appointme nt Facility Name Feb 21, 2025 01:00 PM AMBULATORY - MEDICINE [place] C [facility] Apr 11, 2025 08:30 AM AMBULATORY - MEDICINE [place] Active, [...] of theEncounter. The data comes from all [place] treatment facilities. Test Date/Time Test Type Test Details Facility Name Feb 20, 2025 01:05 PM Consult Order COMMUNITY CARE-PULMONARY Cons Senior Programmer's Choice [facility] Social History: Smoking Status (Most current) and Tobacco Use (All prior to encounter date) This section includes the most current, and the historical, smoking and tobacco- related health factors from the [place] facility where the Encounter took place. Current Smoking Status This section includes the most current smoking, or tobacco-related health factor, from the [place] facility where the Encounter took place. Date/Time Current Smoking Status Comment Facil ity Apr 18, 2024 03:03 PM VA-TOBACCO FORMER USER [facility] Tobacco Use History This section includes a history of the smoking, or tobacco-related health factors, that were collected on or before the date of the Encounter. The data comes from the [place] facility where the Encounter took place. Date/Time Smoking Status/Tobacco Use Comment F acility Apr 18, 2024 03:03 PM [place]-TOBACCO QUIT 15 YRS OR MORE [facility] Encounter Notes: All associated encounter notes This section contains the clinical notes associated to the Encounter. Date/Time Encounter Note(s) Provider Source Feb 06, 2025 11:29 AM NONVA NOTE: LOCAL TITLE: COMMUNITY CARE-CARE COORDINATION PLAN NOTE STANDARD TITLE: NONVA NOTE DATE OF NOTE: FEB 06, 2025@11:29 ENTRY DATE: FEB 06, 2025@11:29:38 AUTHOR: KYRIE KAPOOR COSIGNER: URGENCY: STATUS: COMPLETED Community Care Consult: pulmonary Consult No: tbd HSRM Referral #: tbd Community Provider or Hospital Information Community Provider Information Provider Name: chris anthony Provider Address: [address] [facility] City: [place]: [place] Provider Provider Provider Email: Chief Complaint: asbestosis Patient Admitted? No Level of Care Coordination Basic Care Coordination was determined from: Chart Review Facility Community Care Office Contact Care Coordination Point of Contact: [facility] pulm Services: Navigation Scheduling Post-Appointment Follow-Up E-Communications to referring provider Plan: continuing care office visits for aspestosis /es/ KYRIE KAPOOR JR. MPH, RN REGISTERED NURSE Signed: 02/06/2025 11:32 KYRIE KAPOOR [facility]
--- OUTSIDE RECORDS SUMMARY | 2025-02-21 12:39 | XMS_ITS | Clinical Summary ---
Author Organization [address] Address [address] [place] [address] Phone Care Team Providers Care Cardiovascular Invasive Specialist Name Role Phone Margarito Armstrong Primary Care Provider [phone] Allergies Active Allergy Reactions Criticality Noted Date Comments Other 05/03/2021 Seasonal Allergies Medications fluticasone propionate (FLONASE) 50 mcg/actuation nasal spray INSTILL 2 SPRAYS INTO EACH NOSTRIL DAILY 05/26/2023 Active montelukast (SINGULAIR) 10 mg tablet Take 1 Tablet by mouth at bedtime. 05/26/2023 Active pantoprazole (PROTONIX) 40 mg EC tablet TAKE 1 TABLET BY MOUTH TWICE A DAY 07/21/2023 Active famotidine (PEPCID) 40 mg tablet TAKE 1 TABLET BY MOUTH TWICE A DAY 180 tablet 1 01/03/2025 Active atorvastatin (LIPITOR) 20 mg tablet TAKE 1 TABLET BY MOUTH EVERY DAY 90 tablet 3 01/06/2025 Active azithromycin (ZITHROMAX) 250 mg tablet Take 2 tablets (500 mg total) by mouth 1 (one) time each day for 1 day, THEN 1 tablet (250 mg total) 1 (one) time each day for 4 days. 6 each 01/17/2025 01/23/20 25 Active Problems Problem Noted Date Diagnosed Date Tubular adenoma 10/06/2022 Hyperlipidemia 12/06/2021 Transaminitis 09/25/2018 ETOH abuse 09/24/2018 Shingles 08/25/2015 GERD (gastroesophageal reflux disease) 9 Helicobacter pylori infection 09/27/2007 Erectile dysfunction 08/01/2005 Cervicalgia 08/01/2005 Asbestosis ([facility] V24, [facility] V28) 08/01/2005 Overview (05/24/2024): chest x-ray abnormalities consistent with Encounters Date Type Department Care Team Description 01/17/2025 8:45 AM EDT Office Visit Adult Medicine [address] [address] Margarito Armstrong PA Hyperlipidemia, unspecified hyperlipidemia type (Primary Dx); Gastroesophageal reflux disease without esophagitis; Asbestosis ([facility] V24, [facility] V28); Viral infection, unspecified from Last 3 Months Immunizations Name Administration Dates Next Due Influenza trivalent, 0.5mL ( Fluad) 65yo and older 04/09/2023,05/04/2022,05/03/2021,03/16,06/01/2018,05/16/2017 Influenza trivalent, with pr eservative (Fluzone; Afluria) 6mo and older 05/15/2014 Influenza, Unspecified 05/03/2021,03/18/2020 Moderna (age 6mo & older) Bi valent, COVID-19, 0.5 mL or 0.25 mL dosage 07/20/2022 Moderna SARS-CoV-2 COVID-19, mRNA, LNP-S, preservative free 06/11/2021,10/14/2020,09/16/2020 Pneumococcal conjugate 13 va lent (Prevnar 13, PCV13) 2mo and older 12/14/2017 Pneumococcal polysaccharide 23 valent (Pneumovax 23) 2yo and older 03/18/2020,03/16/2020,12/02/2016 Td Tetanus diptheria (Tdvax) 7yo and older 05/16/2017 Tdap Tetanus diptheria acell ular pertussis (Boostrix; Adacel) 7yo and older 03/01/2007 Zoster Live 11/28/2012 Surgical History Surgery Date Site/Laterality Comments CHOLECYSTECTOMY PROCEDURE: HISTORICAL CHOLECYSTECTOMY COLONOSCOPY 10/26/2018 01/31/08 PROCEDURE: HISTORICAL COLONOSCOPY; COMMENT: Multiple tubular adenomatous polyps next due 2021 SHOULDER SURGERY Bilateral PROCEDURE: HISTORICAL SHOULDER SURGERY; COMMENT: bilateral shoulder surgery [facility] in 2010 LIPOMA RESECTION PROCEDURE: SKIN TISSUE EXCISION(LIPOMA); COMMENT: removed around neck Medical History Medical History Date Comments Cervicalgia DX:Cervicalgia Impotence of organic origin DX:I mpotence of organic origin Asbestosis(501) DX:Asbestosis(50 1); COMMENT: chest x-ray abnormalities consistent with Personal history of colonic polyps 11/04/2018 DX:Personal history of colonic polyps; COMMENT: CN 2018 maxine howard Multiple polyps Shoulder pain, bilateral DX:Shou lder pain, bilateral Family History Medical History Relation Name Comments Other: estranged Brother 1 Suicide Attempts Brother 2 Other: MVA Brother 3 Lung cancer Father , smoke r Diabetes Mother with renal fail ure Other: healthy Sister Relation Name Status Comments Brother 1 Alive ?? Brother 2 suicide Brother 3 mva Father (Age 72) ?cancer bri ng - smoker Mother (Age 72) kidney roger lure dm Sister Alive Social History Tobacco Use Types Packs/Day Years Used Date Smoking Tobacco: Former Cigarettes Q uit: 05/16/1994 Smokeless Tobacco: Never Tobacco Cessation:Counseling Given: Not Answered Alcohol Use Standard Drinks/Week Comments Yes 2 (1 standard drink = 0.6 oz pur e alcohol) Housing Instability Answer Date Recorde d Are you worried that in the next 2 months you may not have stable housing? No 01/17/2025 Food Access & Nutrition Answer Date Rec orded Do you have access to a vari ety of food including fruits and vegetables? Yes 01/17/2025 Health Literacy Answer Date Recorded How often do you need to hav e someone help you when you read instructions, pamphlets, or other written material from your doctor or pharmacy? Never 01/17/2025 Caregiver: How often do you need to have someone help you when you read instructions, pamphlets, or other written material from your doctor or pharmacy? Not on file 01/17/2025 Financial Risk Answer Date Recorded How hard is it for you to pa y for the very basics like food, housing, medical care, and air conditioning / heating? Not very hard 01/17/2025 Transportation Answer Date Recorded Has the lack of transportati on kept you from meetings, work, or from getting things needed for daily living? No Has the lack of transportati on kept you from medical appointments or from getting medications? No 01/17/2025 Social Isolation Answer Date Recorded How often do you feel lonely or isolated from th ose around you? Never 01/17/2025 Food Risk Answer Date Recorded Within the past 12 months we worried whether our food would run out before we got money to buy more. Never true 01/17/2025 Within the past 12 months th e food we bought just didn't last and we didn't have money to get more. Never true 01/17/2025 Dependent Care Answer Date Recorded Do you need help finding or paying for care for your loved ones. For example, early childhood or elderly care for an older adult? No 01/17/2025 Education Answer Date Recorded Do you think completing more education or training, like finishing a GED, going to college, or learning a trade, would be helpful for you? No 01/17/2025 Employment and Income Answer Date Recor ded During the last four weeks, have you been actively looking for work? No 01/17/2025 Living Situation Answer Date Recorded What is your living situation? 0 01/17/2025 Sex and Gender Information Value Date Recorded Sex Assigned at Not on file Legal Sex Male 4:26 PM EST Gender Identity Not on file Sexual Orientation Not on file Obstetrics History Last Filed Vital Signs Vital Sign Reading Time Taken Comments Blood Pressure 136/68 01/17/2025 8:40 AM EDT Pulse 52 01/17/2025 8:40 AM EDT Temperature 36.2 C (97.1 F) 01/17/2025 8:40 AM EDT Respiratory Rate 16 01/17/2025 8:40 AM EDT Oxygen Saturation - - Inhaled Oxygen Concentration - - Weight 103 kg (228 lb) 01/17/2025 8:40 AM EDT Height 190.5 cm (6' 3 ) 01/17/2025 8:40 AM EDT Body Mass Index 28.5 01/17/2025 8:40 AM EDT Plan of Treatment Upcoming Encounters Date Type Department Care Team (Late st Contact Info) Description 2025 10:30 AM EST Office Visit Adult Medicine [address] [place] [address] Margarito Armstrong, PA [address] [place] [address] Health Maintenance Due Date Last Done Comments Hepatitis A Vaccines (1 of 2 - Risk 2-dose series) 1969 Zoster Vaccines (1 of 2) 01/23/2013 11/28/2012 Medicare Annual Wellness Visit 07/16/2022 RSV Immunization Adult Patients (1 - 1-dose 75+ series) 2024 COVID-19 Vaccine (8 - Moderna risk season) 2024 04/18/2024, 06/15/2023, 07/20/2022, Additional history exists Influenza Vaccine (#1) 2025 , 04/09/2023, 05/04/2022, Additional history exists Depression Screening 05/14/2025 05/14/2024 Falls Risk Assessment 05/14/2025 05/14/2024 Social Influencers of Health Screening 01/17/2026 01/17/2025 DTaP,Tdap,and Td Vaccines (3 - Td or Tdap) 05/16/2027 05/16/2017, 03/01/2007, 03/01/2007, Additional history exists Cholesterol Screening (Lipid Panel) 07/02/2029 07/02/2024, 05/26/2023 Colorectal Cancer Screening: Colonoscopy 12/26/2033 12/27/2023 Hepatitis C Screening Completed 04/23/2013 Pneumococcal Vaccine: 50+ Years Completed 08/11/2023, 03/18/2020, 03/16/2020, Additional history exists Abdominal Aortic Aneurysm (AAA) Screen Discontinued HIB Vaccines Aged Out No longer eligi ble based on patient's age to complete this topic HPV Vaccines Aged Out No longer eligi ble based on patient's age to complete this topic Hepatitis B Vaccines Aged Out No long er eligible based on patient's age to complete this topic IPV Vaccines Aged Out No longer eligi ble based on patient's age to complete this topic MMR Vaccines Aged Out No longer eligi ble based on patient's age to complete this topic Meningococcal ACWY Vaccine Aged Out N o longer eligible based on patient's age to complete this topic Meningococcal B Vaccine Aged Out No l onger eligible based on patient's age to complete this topic RSV Immunization Patients Under 20 months Aged Out No longer eligible based on patient's age to complete this topic Varicella Vaccines Aged Out No longer eligible based on patient's age to complete this topic Procedures Procedure Name Priority Date/Time Associated Diagnosis Comments POC RAPID [id number], MOLECULAR Routine 01/17/2025 9:22 AM EDT Viral infection, unspecified POC INFLUENZA A/B Routine 01/17/2025 9:2 2 AM EDT Viral infection, unspecified LIPID PANEL WITH REFLEX TO DIRECT LDL Routine 07/02/2024 10:31 AM EST Routine general medical examination at a health care facility DEPRESSION SCREENING Routine 05/14/2024 FALLS RISK ASSESSMENT Routine 05/14/2024 COLONOSCOPY Routine 12/27/2023 HEPATITIS C SCREENING Routine 04/23/2013 from Last 3 Months or Most Recently Relevant to Health Maintenance Results * Poc Rapid [id number], MOLECULAR (01/17/2025 9:22 AM EDT) COVID-19/SARS- COV-2 Rapid POC Negative Negative Internal Control Pass Yes Yes Swab Nasopharyngeal structure / Unknown 01/17/2025 9:22 AM EDT Margarito OLVERA POINT OF CARE TEST ENTER/ EDIT ORDERABLES Final Result * POC Influenza A/B manually resulted (01/17/2025 9:22 AM EDT) Rapid Influenza A AGN POC Negative Negative Rapid Influenza B AGN POC Negative Negative Internal Control Pass Yes Yes Swab 01/17/2025 9:22 AM EDT us Margarito OLVERA POINT OF CARE TEST ENTER/ EDIT ORDERABLES Final Result * (ABNORMAL) Lipid panel with reflex to direct LDL (07/02/2024 10:31 AM EST) Pathologist [facility] Cholesterol 141 0 - 200 mg/dL LAB CHEMISTRY METHOD 07/02/2024 3:03 PM [facility] Triglycerides 163(H) 0 - 150 mg/dL LAB CHEMISTRY METHOD 07/02/2024 3:03 PM EST [facility] HDL 52 >=40 mg/dL LAB CHEMISTRY METHOD 07/02/2024 3:03 PM EST [facility] LDL Calculated 56 0 - 100 mg/dL LAB CHEMISTRY METHOD 07/02/2024 3:03 PM [facility] VLDL Cholesterol Adrián 32.6 mg/dL LAB CHEMISTRY METHOD 07/02/2024 3:03 PM [facility] Non HDL Chol. (LDL+VLDL) 89 <145 mg/dL LAB CHEMISTRY METHOD 07/02/2024 3:03 PM [facility] Chol/HDL Ratio 2.7 0.0 - 4.4 LAB CHEMISTRY METHOD 07/02/2024 3:03 PM [facility] Blood Venous blood specimen / Unknown Venipuncture / Unknown 07/02/2024 10:31 AM EST 07/02/2024 10:31 AM EST Margarito OLVERA LAB BLOOD ORDERABLES Lorna l Result [facility] [address] [place] [address], * Falls Risk Assessment (05/14/2024) [facility] Falls Risk Assessment Abstracted Historical Provider HEALTH MAINTENANCE Final Result * Depression Screening (05/14/2024) Pathologist [facility] Depression Screening Abstracted Historical Provider HEALTH MAINTENANCE Final Result * Colonoscopy (12/27/2023) Colonoscopy Abstracted, No interpretation Anatomical Region Laterality Modality Other Historical Provider HEALTH MAINTENANCE Final Result * Hepatitis C Screening (04/23/2013) Hepatitis C Screening Abstracted Historical Provider HEALTH MAINTENANCE Final Result from Last 3 Months or Most Recently Relevant to Health [place] [address] MEDICARE [facility] Care Teams Cardiovascular Invasive Specialist Relationship Specialty Start Date End Date Margarito Armstrong PA [address] [place] [address] PCP - General Internal Medicine 05/11/21
--- OUTSIDE RECORDS SUMMARY | 2025-02-21 12:40 | XMS_ITS | Data Portability ---
Author Organization [place] - [facility], [facility] Address [address] [place] [address] Care Team Providers Care Wall And Floor Tiler Name Role Phone ANTHONY DSOUZA Grease Maker [phone] TONA CAMEJO Referring Provider Assessment Encounter Date Assessment Date Assessment LastModified by Organization Details LastModified Time 09/30/2015 09/30/2015 At this juncture he has reached a point of maximum medical improvement with regard to the shoulder. He has not gotten improvement with his left shoulder and I do not think going after his right shoulder makes sense. I believe he continues to have a cervical component which needs to be addressed. At this point I believe he is at maximum medical improvement. I have given him restrictions of no overhead lifting and no lifting of greater than 5 pounds. His neck will be managed elsewhere and he will follow up with me on an as-needed basis. [email or web address] Not available 10/02/2015 09:45:44 Plan of Treatment Reminders Order Date Submit Date Provider Last Modified By Organization Details Last Modified Time Details Appointments None record ed. Lab None record ed. Referral None record ed. Procedures None record ed. Surgeries None record ed. Imaging None record ed. Medication Orders None record ed. Patient TargetsNo targets recorded. Patient InstructionsNo instructions recorded. Reason for Referral None Reported. Problems Name Problem SNOMED Code Status Onset Date Resolution Date Notes Provider Name and Address Organization Details Recorded Time Pain of shoulder region 55870026 Active WADE PATE [address] [place] [address], [phone] [place] [address] [facility] 5 12:20:40 Subacromial impingement 630060482 Active Audelia salazar [place] - [facility] 6 09:45:44 Neck pain 39269035 Active Suzanne salazar [facility] 6 09:10:41 Problem Notes None recorded. Procedures Surgical History Date Name Laterality Status Provider Name and Address Organization Details Recorded Time 5 Orthopaedic Surgery completed [facility] 09/30/2015 12:34:54 Imaging Results None recorded. Procedure Notes None recorded. Medical Equipment None Reported. Allergies No known drug allergies Medications Name Sig Start Date Stop Date Status Note LastModified by Organization Details LastModified Time oxycodone 5 mg tablet Take 1-2 tablets every 4-6 hours as needed 015 active Not Available Not Available Not Avai lable Vitals Date Recorded Body weight Body height Body mass index (BMI) Provider Name and Address Organization Details Last Updated DateTime 09/30/2015 32691.17905 g 190.5 cm 26.9 kg/m2 [facility] 09/30/2015 12:34:54 Social History Question Answer Notes LastModified by Organizat ion Details LastModified Time Tobacco Smoking Status Never Smoker [facility] 09/30/2015 12:34:54 Auto Related Injury? No Information not available 09/30/2015 Work Related Injury? Yes Information not available 09/30/2015 Sex: Unknown Functional Status None recorded. Mental Status None recorded. Family History Nothing Reported. Medical History Condition Response HIV or AIDS N High Blood Pressure N Irregular Heartbeat N Any Other Significant Medical Issues N Weight Gain / Loss N Hearing Loss N Angina, Heart Failure or Attack N Night Sweats N Seizures / Epilepsy N Osteoarthritis / Rheumatoid arthritis / Other N Cancer N Stroke N Ulcer / Stomach Bleeding / Indigestion N Visual Loss or Glaucoma N Blood Clots / Phlebitis N Heart Problems N Depression or Anxiety N Emphysema / Chronic Bronchitis N Reaction to General/Local Anesthesia N Hepatitis / Jaundice N Kidney / Bladder Infections N Diabetes N Bleeding Disorder N Chemical Dependency / Alcoholism N Psoriasis / Skin Rash N Thyroid Disorder N Heart Disease N Asthma / Shortness of Breath / Sleep Trade Mark Attorney ea (please specify) N Pulmonary Embolism N Past Encounters Encounter ID Performer Location Encounter Start Date Encounter Closed Date Diagnosis/Indication Diagnosis SNOMED-CT Code Diagnosis ICD10 Code Diagnosis Note [id number] DEMAR LINDQUIST MD [facility] Office [address] [place] [address] 09/30/2015 11:43:34 09/30/2015 13:14:17 Subacromial impingement 882433934 M75.41 M75.42 Health Concerns Section Related Observation LastModified by Organization Detai ls LastModified Time None Recorded Concern Status LastModified by Organization Details LastModified Time None Recorded Advance Directives Directive None Recorded Payers Insurance Date Sequence Insurance Name Policy Number Policy Vo Covered Member ID Vo Member ID Guarantor Name 02/10/2015 [employer] Gonzales Notes Date Note Type Note Provider Name and Address Organization Details Recorded Time 09/30/2015 text/html MAICO Fulton comes in today to the [place] office. He is accompanied by his . He has persistent pain in his bilateral shoulders. He had left shoulder arthroscopic subacromial decompression on 02/20/15. He feels his left shoulder is no better and potentially is worse since the surgery seven months ago. He has been to his spine doctor who has given him trigger point injections in six different placed in August and he does not feel they gave him much improvement. His right shoulder is unchanged and continues to bother him. He has a lot of pain with activities above the horizon. He comes in today for follow up now seven months status post his surgery and a [id number] status post his work-related injury on 04/24/14. WADE PATE [address] [facility], [place], [address], [facility] 10/05/2015 14:50:57
[2025-02-21 12:54] VITALS: BP 134/78; PULSE 68; O2SAT 97; BMI 28.4
--- NOTE | 2025-02-21 12:54 | MHC.OFFVIS ---
Vital Signs 02/21/25 12:54 Height 6 ft 3 in Weight 227 lb BMI 28.4 BP 134/78 Blood Pressure Location Rt brachial Position Sitting Pulse 68 Pulse Source Doppler Pulse Oximetry (%) 97 Oxygen Delivery Method Room Air Intake Visit Reasons: Asbestosis Allergies No Known Allergies Allergy (Verified 08/12/24 09:20) HPI HPI Asbestosis: Details: 74-year-old gentleman, former approximately 20 pack-year smoker, quit over 30 years prior with underlying history of asbestos exposure in the [place] and known asbestosis on CT chest referred for pulmonary follow-up. Patient complains of dyspnea on exertion when going up stairs, but not on level ground. He denies prior personal history of lung disease. He has been using Wixela and albuterol MDI with no significant effect on his dyspnea on exertion. He also been using Flonase and Singulair for underlying environmental allergies. His pulmonary function test showed moderate obstructive and restrictive ventilatory defect with minimal bronchodilator response. Patient has completed his cardiopulmonary exercise test that shows at least 50% ventilatory reserve with exercise, however significant decrease in aerobic capacity that appears to be attributed to respiratory muscle weakness/deconditioning. He continues to complain of dyspnea on exertion. [facility] Social History (Updated 06/07/24 @ 10:57 by Mariola Turcios Jacob) Patient Tobacco Use Status: Former Tobacco user Years Smoked: quit smoking in the 80's Review of Systems Const Denies daytime sleepiness, Denies excessive sweating, Denies fatigue, Denies fever(s), Denies lethargy, Denies malaise, Denies night sweats, Denies snoring and Denies weight loss Eyes Denies blurry vision and Denies itchy eyes ENT Denies nasal congestion, Denies post nasal drip, Denies sinus pain, Denies sinus pressure and Denies other ( Thrush) Card Denies chest pain, Denies pedal edema, Denies dyspnea, Reports dyspnea on exertion, Denies orthopnea and Denies paroxysmal nocturnal dyspnea Resp Denies cough, Denies hemoptysis, Denies excessive phlegm production, Denies dyspnea, Reports dyspnea on exertion, Denies snoring and Denies wheezing GI Denies abdominal pain and Denies heartburn Musc Denies myalgias, Denies arthralgias and Denies joint swelling Skin/Breast Denies rash Neuro Denies memory loss and Denies seizure-like activity Psych Denies abnormal sleep pattern, Denies anxiety and Denies memory loss Endo Denies excessive sweating, Denies fatigue and Denies heat intolerance Bon/Lymph Denies easy bruising Aller/Immun Denies itchy eyes, Denies seasonal rhinorrhea and Denies wheezing Physical Exam Vital Signs: Last Vital Signs Pulse 68 02/21/25 12:54 BP 134/78 02/21/25 12:54 Pulse Ox 97 02/21/25 12:54 Oxygen Delivery Method Room Air 02/21/25 12:54 BMI result Body Mass Index 28.4 Const General: no acute distress and alert Nutritional Appearance: not obese Orientation/consciousness: Other orientation findings ( oriented) HEENT Head: Yes atraumatic Eyes General: appearance normal, both eyes and all related structures Sclerae: sclerae normal EOM: EOMs intact bilaterally Neck Neck: Yes supple Lymphatic: no lymphadenopathy noted Resp Effort & Inspection: normal respiratory effort and no use of accessory muscles Auscultation: clear to auscultation bilaterally Cardio Rate: regular rate Rhythm: regular rhythm Heart sounds: no gallops, no murmurs and no rubs Skin General skin exam: other ( warm) Extrem General: No clubbing, No cyanosis and No edema Assessment & Plan Assessment & Plan (1) Asbestosis: Code(s): 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 Continue on Wixela and albuterol MDI. (2) Dyspnea on exertion: Code(s): R06.09 - Other forms of dyspnea Category: Medical Plan: Will refer to cardiology to evaluate cardiac component. Coding Level of Care Code Est Pt Level 4 (15879) Diagnoses Asbestosis J61 Dyspnea on exertion R06.09
== END 2025-02-21 13:15 | disposition home or self-care (01) ==
LOC: HO.HPS 12:37
PROVIDERS: PCP Family Medicine; Visit Provider Internal Medicine Pulmonary Disease
DX: J61 Pneumoconiosis due to asbestos and other mineral fibers (principal); R06.09 Other forms of dyspnea
CPT/HCPCS: 99214

== ENCOUNTER → 2025-02-21 12:37 | Outpatient (BNVA) | payer OTHER, SELFPAY | PROVIDERS: PCP Family Medicine; Visit Provider Internal Medicine Pulmonary Disease | DX: J61 Pneumoconiosis due to asbestos and other mineral fibers (principal); R06.09 Other forms of dyspnea | CPT/HCPCS: 99212 ==

== ENCOUNTER 2025-06-05 09:03 | Outpatient (AMB) | payer OTHER, SELFPAY ==
[2025-06-05 09:10] VITALS: BP 148/78; O2SAT 96; BMI 28.0
--- NOTE | 2025-06-05 09:10 | MHC.OFFVIS ---
Vital Signs 06/05/25 09:10 Height 6 ft 3 in Weight 224 lb BMI 28.0 BP 148/78 H Blood Pressure Location Rt brachial Position Sitting Pulse Oximetry (%) 96 Oxygen Delivery Method Room Air Intake Visit Reasons: copd Allergies No Known Allergies Allergy (Verified 06/05/25 09:16) HPI HPI copd: Details: 74-year-old gentleman, former approximately 20 pack-year smoker, quit over 30 years prior with underlying history of asbestos exposure in the [place] and known asbestosis on CT chest referred for pulmonary follow-up. Patient complains of dyspnea on exertion when going up stairs, but not on level ground. He denies prior personal history of lung disease. He has been using Wixela and albuterol MDI with no significant effect on his dyspnea on exertion. He also been using Flonase and Singulair for underlying environmental allergies. His pulmonary function test showed moderate obstructive and restrictive ventilatory defect with minimal bronchodilator response. Patient has completed his cardiopulmonary exercise test that shows at least 50% ventilatory reserve with exercise, however significant decrease in aerobic capacity that appears to be attributed to respiratory muscle weakness/deconditioning. He continues to complain of same level of dyspnea on exertion. He has been referred to Cardiology and is going to have an evaluation within next month. [facility] Social History (Updated 06/07/24 @ 10:57 by JUSTIN Holliday) Patient Tobacco Use Status: Former Tobacco user Years Smoked: quit smoking in the 80's Review of Systems Const Denies daytime sleepiness, Denies excessive sweating, Denies fatigue, Denies fever(s), Denies lethargy, Denies malaise, Denies night sweats, Denies snoring and Denies weight loss Eyes Denies blurry vision and Denies itchy eyes ENT Denies nasal congestion, Denies post nasal drip, Denies sinus pain, Denies sinus pressure and Denies other ( Thrush) Card Denies chest pain, Denies pedal edema, Denies dyspnea, Denies orthopnea and Denies paroxysmal nocturnal dyspnea Resp Denies cough, Denies hemoptysis, Denies excessive phlegm production, Denies dyspnea, Denies snoring and Denies wheezing GI Denies abdominal pain and Denies heartburn Musc Denies myalgias, Denies arthralgias and Denies joint swelling Skin/Breast Denies rash Neuro Denies memory loss and Denies seizure-like activity Psych Denies abnormal sleep pattern, Denies anxiety and Denies memory loss Endo Denies excessive sweating, Denies fatigue and Denies heat intolerance Bon/Lymph Denies easy bruising Aller/Immun Denies itchy eyes, Denies seasonal rhinorrhea and Denies wheezing Physical Exam Vital Signs: Last Vital Signs BP 148/78 H 06/05/25 09:10 Pulse Ox 96 06/05/25 09:10 Oxygen Delivery Method Room Air 06/05/25 09:10 BMI result Body Mass Index 28.0 Const General: no acute distress and alert Nutritional Appearance: not obese Orientation/consciousness: Other orientation findings ( oriented) HEENT Head: Yes atraumatic Eyes General: appearance normal, both eyes and all related structures Sclerae: sclerae normal EOM: EOMs intact bilaterally Neck Neck: Yes supple Lymphatic: no lymphadenopathy noted Resp Effort & Inspection: normal respiratory effort and no use of accessory muscles Auscultation: clear to auscultation bilaterally Cardio Rate: regular rate Rhythm: regular rhythm Heart sounds: no gallops, no murmurs and no rubs Skin General skin exam: other ( warm) Extrem General: No clubbing, No cyanosis and No edema Assessment & Plan Assessment & Plan (1) Asbestosis: Code(s): 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 Continue radiologic surveillance, will repeat CT chest in 12 months. (2) Dyspnea on exertion: Code(s): R06.09 - Other forms of dyspnea Category: Medical Plan: Status post cardiopulmonary exercise test with demonstration of approximately 50% respiratory reserve. Cardiology workup is pending. Coding Level of Care Code Est Pt Level 4 (77039) Diagnoses Asbestosis J61 Dyspnea on exertion R06.09
--- OUTSIDE RECORDS SUMMARY | 2025-06-05 10:08 | XMS_ITS | Data Portability ---
Author Organization [place] - [facility], [facility] - INPATIENT Address [address] [place] [address] Care Team Providers Care Annual Giving Manager Name Role Phone ANTHONY DSOUZA Hazardous Substances Engineer TONA CAMEJO Referring Provider [phone] Assessment Encounter Date Assessment Date Assessment LastModified [...] Details Recorded Time Pain of shoulder region 79987863 Active WADE PATE [address] [place] [address], [id number] [place] [address] [facility] 5 12:20:40 Subacromial impingement 323973903 Active Audelia salazar [place] - [facility] 6 09:45:44 Neck pain 88189149 Active Suzanne salazar [facility] 6 09:10:41 Problem Notes None recorded. Procedures Surgical History Date Name Laterality Status Provider Name and Address Organization Details Recorded Time 5 Orthopaedic Surgery completed [facility] 09/30/2015 12:34:54 Imaging Results None recorded. Procedure [...] Address Organization Details Last Updated DateTime 09/30/2015 05899.29524 g 190.5 cm 26.9 kg/m2 [facility] 09/30/2015 12:34:54 Social History Question Answer Notes LastModified by Organizat ion Details LastModified Time Tobacco Smoking Status Never Smoker [facility] 09/30/2015 12:34:54 Auto Related Injury? No Information not available 09/30/2015 Work Related Injury? Yes Information not available 09/30/2015 Sex: Unknown Functional Status None recorded. Mental Status None recorded. Family History Nothing Reported. Medical History Condition Response Blood Clots / Phlebitis N HIV or AIDS N High Blood Pressure N Depression or Anxiety N Emphysema / Chronic Bronchitis N Any Other Significant Medical Issues N Reaction to General/Local Anesthesia N Blood Disorder: Anemia, clotting disorde r, etc. (please specify) N Hepatitis / Jaundice N Weight Gain / Loss N Diabetes: Type I or II (please specify) N Kidney / Bladder Infections N Heart Condition: Heart Attac k, Afib, Irregular Heartbeat, etc. (please specify) N Hearing Loss N Night Sweats N Seizures / Epilepsy N Cancer N Stroke N Chemical Dependency / Alcoholism N Ulcer / Stomach Bleeding / Indigestion N Visual Loss or Glaucoma N Psoriasis / Skin Rash N Thyroid Disorder N Asthma / Shortness of Breath / Sleep Punchboard Stuffer ea (please specify) N Pulmonary Embolism N Past Encounters Encounter ID Performer Location Encounter Start Date Encounter Closed Date Diagnosis/Indication Diagnosis SNOMED-CT Code Diagnosis ICD10 Code Diagnosis IMO Codes Diagnosis Note [id number] DEMAR LINDQUIST MD [facility] Office [address] [place] [id number] 09/30/2015 11:43:34 09/30/2015 13:14:17 Subacromial impingement 053884346 M75.41 M75.42 Health Concerns Section Related Observation [...] MAICO Fulton comes in today to the [place] office. He is accompanied by his . [...] months status post his surgery and a [id number] status post his work-related injury on 04/24/14. WADE PATE [address] [place] [address], [place], [address], [facility] 10/05/2015 14:50:57
--- OUTSIDE RECORDS SUMMARY | 2025-06-05 10:08 | XMS_ITS | Data Portability ---
Author Organization [place] - [facility], Allergy Address [address] [place] [address] Care Team Providers Care Cytology Supervisor Name Role Phone TANO LOVELACE Primary Care [...] follow-up in 6 months for cerumen removal. naresh Not available 05/31/2024 13:55:22 11/29/2024 11/29/2024 74-year-old male presents for cerumen removal. There is no cerumen on examination today. He will continue to avoid Q-tip use. Requests 1 year follow-up which will be arranged. naresh Not available 11/29/2024 09:23:34 Plan of Treatment Reminders Order Date Submit Date Provider Last Modified By Organization Details Last Modified Time Details Appointments Establish ed 15 2025 01:00P M TRINIDAD BOURGEOIS PA-C Not available Not [...] Recorded Time Impacted cerumen of bilateral ears 71435722365206 08 Active 10/25/ 2024 TRINIDAD BOURGEOIS PA-C 100 [facility], [place], [address], [facility] - [facility] 13:55:29 Problem Notes None recorded. Procedures Surgical History Date Name Laterality Status Provider Name and Address Organization Details Recorded Time Cerumen removal without microscope bilat completed TRINIDAD BOURGEOIS PA-C 100 [facility], [place], [address], [facility] - [facility] 05/31/2024 13:53:41 Imaging Results None recorded. [...] BY MOUTH EVERY DAY FOR 5 DAYS 11/29 completed Not Available Not Available Not Available ofloxacin 0.3 % ear drops PLEASE [...] MOUTH TWICE A DAY FOR 10 DAYS 11/29 completed Not Available Not Available Not Available Vitals Date Recorded Body height Provider Name an d Address Organization Details Last Updated DateTime 11/29/2024 190.5 cm ANDREE WANG [place] - [facility] 11/29/2024 09:02:05 Date Recorded Body height Body mass index (BMI) Body weight Provider Name and Address Organization Details Last Updated DateTime 05/31/2024 190.5 cm 28.1 kg/m2 479731.28 g Sabina Colin [place] - [facility] 05/31/2024 13:30:20 Social History None recorded. Functional Status Question Answer Note LastModified by Organizat ion Details LastModified Time What is your level of alcohol consumption? Occasional [email or web address] Information not available 05/31/2024 Mental Status None recorded. Family History Nothing Reported. Medical History No medical history recorded. Past Encounters Encounter ID Performer Location Encounter Start Date Encounter Closed Date Diagnosis/Indication Diagnosis SNOMED-CT Code Diagnosis ICD10 Code Diagnosis IMO Codes Diagnosis Note [id number] TRINIDAD BOURGEOIS PA-C [facility] [address] [address] 05/31/2024 13:11:31 05/31/2024 13:35:23 Impacted cerumen of bilateral ears [id number] 109009 H61.23 [id number] TRINIDAD BOURGEOIS PA-C [facility] [address] [address] 11/29/2024 08:57:44 11/29/2024 09:21:16 Impacted cerumen of bilateral ears 3723505661 963164 H61.23 Health Concerns Section Related Observation LastModified by Organization Detai ls LastModified Time None Recorded Concern Status LastModified by Organization Details LastModified Time None Recorded Advance Directives Directive None Recorded Payers Insurance Date Sequence Insurance Name Policy Number Policy Vo Covered Member ID Vo Member ID Guarantor Name 12/04/2024 1 [place] [employer] Donaldo Gonzales [id number] Donaldo Gonzales 11/26/2024 2 [facility] INDEMNITY PLAN (MEDICARE SUPPLEMENT) [id number] Kira Gonzales [id number] Donaldo Janet Notes Date Note Type Note Provider Name and Address Organization Details Recorded Time 05/31/2024 text/html ROS as noted in the HPI 73-year-old male presents for evaluation of otitis externa. He had an ear infection recently treated by his primary care with Augmentin and ofloxacin drops. The infection has resolved but he has been left with some mild soreness in the right ear. Completed his antibiotics about a week ago. TRINIDAD BOURGEOIS PA-C [address], [address], [facility] - [facility] 05/31/2024 13:56:20 11/29/2024 text/html ROS as noted in the HPI 74-year-old male presents for cerumen removal. History of otitis externa which resolved with debridement and drops. Overall doing well. Has discontinued Q-tip use. TRINIDAD BOURGEOIS PA-C [address], [address], [facility] - [facility] 11/29/2024 09:23:53
== END 2025-06-05 09:30 | disposition home or self-care (01) ==
LOC: HO.HPS 09:03
PROVIDERS: PCP Family Medicine; Referring Provider Internal Medicine Pulmonary Disease; Visit Provider Internal Medicine Pulmonary Disease
DX: J61 Pneumoconiosis due to asbestos and other mineral fibers (principal); R06.09 Other forms of dyspnea
CPT/HCPCS: 99214

== ENCOUNTER → 2025-06-05 09:03 | Outpatient (BNVA) | payer OTHER, SELFPAY | PROVIDERS: PCP Family Medicine; Visit Provider Internal Medicine Pulmonary Disease | DX: J61 Pneumoconiosis due to asbestos and other mineral fibers (principal); R06.09 Other forms of dyspnea; Z87.891 Personal history of nicotine dependence | CPT/HCPCS: 99212 ==

== ENCOUNTER 2025-07-01 08:15 | Outpatient (AMB) | payer MEDICARE, OTHER, SELFPAY ==
--- OUTSIDE RECORDS SUMMARY | 2025-07-01 08:28 | XMS_ITS | Data Portability ---
Author Organization [place] - [facility], Allergy Address [address] [place] [address] Care Team Providers Care Online Media Buyer Name Role Phone TANO LOVELACE Primary Care [...] Recorded Time Impacted cerumen of bilateral ears [id number] 08 Active 10/25/ 2024 TRINIDAD BOURGEOIS PA-C 100 [facility], [address], [place], [address], [facility] - [facility] 13:55:29 Problem Notes None recorded. Procedures Surgical History Date Name Laterality Status Provider Name and Address Organization Details Recorded Time Cerumen removal without microscope bilat completed TRINIDAD BOURGEOIS PA-C 100 [facility] [address], [place], [address], [facility] - [facility] 05/31/2024 13:53:41 Imaging Results None recorded. [...] [place] - [facility] 11/29/2024 09:02:05 Date Recorded Body height Body mass index (BMI) Body weight Provider Name and Address Organization Details Last Updated DateTime 05/31/2024 190.5 cm 28.1 kg/m2 987940.28 g Sabina Colin [place] - [facility] 05/31/2024 13:30:20 Social History None recorded. Functional Status Question Answer Note LastModified by Organizat ion Details LastModified Time What is your level of alcohol consumption? Occasional [email or web address] Information not available 05/31/2024 Mental Status None recorded. Family History Nothing Reported. Medical History No medical history recorded. Past Encounters Encounter ID Performer Location Encounter Start Date Encounter Closed Date Diagnosis/Indication Diagnosis SNOMED-CT Code Diagnosis ICD10 Code Diagnosis IMO Codes Diagnosis Note [id number] TRINIDAD BOURGEOIS PA-C [facility] [address] [address] 05/31/2024 13:11:31 05/31/2024 13:35:23 Impacted cerumen of bilateral ears 2232136824 357633 H61.23 [id number] TRINIDAD BOURGEOIS PA-C [facility] [address] [address] 11/29/2024 08:57:44 11/29/2024 09:21:16 Impacted cerumen of bilateral ears 1722795303 675157 H61.23 Health Concerns Section Related Observation LastModified by Organization Detai ls LastModified Time None Recorded Concern Status LastModified by Organization Details LastModified Time None Recorded Advance Directives Directive None Recorded Payers Insurance Date Sequence Insurance Name Policy Number Policy Vo Covered Member ID Vo Member ID Guarantor Name 12/04/2024 1 [place] [employer] Donaldo Gonzales [id number] Donaldo Gonzales 11/26/2024 2 [facility] INDEMNITY PLAN (MEDICARE SUPPLEMENT) [id number] Kira Gonzales [id number] Donaldo Janet Notes Date Note Type Note [...] Completed his antibiotics about a week ago. TRIINDAD BOURGEOIS PA-C [address], [address], [facility] - [facility] 05/31/2024 13:56:20 11/29/2024 text/html ROS as noted in the HPI 74-year-old male presents for cerumen removal. History of otitis externa which resolved with debridement and drops. Overall doing well. Has discontinued Q-tip use. TRINIDAD BOURGEOIS PA-C [address], [address], [facility] - [facility] 11/29/2024 09:23:53
--- OUTSIDE RECORDS SUMMARY | 2025-07-01 08:28 | XMS_ITS | Clinical Summary ---
Author Organization [address] Address [address] [place] [address] Phone Care Team Providers Care [employer] Professor Name Role Phone Margarito Armstrong Primary Care Provider [phone] Allergies Active Allergy Reactions Criticality Noted Date [...] EVERY DAY 90 tablet 3 01/06/2025 Active Active Problems Problem Noted Date Diagnosed Date Tubular adenoma 10/06/2022 Hyperlipidemia 12/06/2021 Transaminitis 09/25/2018 ETOH abuse 09/24/2018 Shingles 08/25/2015 GERD (gastroesophageal reflux disease) 9 Helicobacter pylori infection 09/27/2007 Erectile dysfunction 08/01/2005 Cervicalgia 08/01/2005 Asbestosis ([facility] V24, [facility] V28) 08/01/2005 Overview (05/24/2024): chest x-ray abnormalities consistent with Immunizations Immunization Administration Dates Next Due Influenza trivalent, 0.5mL [...] Years Used Date Smoking Tobacco: Former Cigarettes 0 Q uit: 05/16/1994 Smokeless Tobacco: Never Tobacco [...] your loved ones. For example, early childhood director or elderly care for an older adult? [...] Date Recorded What is your living situation? Unrecognized valu e 01/17/2025 Sex and Gender Information Value Date [...] 10:30 AM EST Office Visit Adult Medicine [address] [address] Margarito Armstrong, [address] [address] Health Maintenance Due Date Last Done Comments Hepatitis A Vaccines (1 of 2 - Risk 2-dose series) 1969 Zoster Vaccines (2 of 3) 01/23/2013 11/28/2012 Medicare Annual Wellness Visit 07/16/2022 RSV Immunization Adult Patients (1 - 1-dose 75+ series) 2024 Depression Screening 08/07/2024 05/14/2024 COVID-19 Vaccine ( season) 2025 04/18/2024, 06/15/2023, 07/20/2022, Additional history exists Influenza Vaccine (#1) 2025 , 04/09/2023, 05/04/2022, Additional history exists Falls Risk Assessment 05/14/2025 05/14/2024 Social Influencers [...] Procedure Name Priority Date/Time Associated Diagnosis Comments LIPID PANEL WITH REFLEX TO DIRECT LDL Routine 07/02/2024 10:31 AM EST Routine general medical examination at a health care facility DEPRESSION SCREENING Routine 05/14/2024 FALLS RISK ASSESSMENT Routine 05/14/2024 COLONOSCOPY Routine 12/27/2023 HEPATITIS C SCREENING Routine 04/23/2013 from Last 3 Months or Most Recently Relevant to Health Maintenance Results * (ABNORMAL) Lipid panel with reflex to direct LDL (07/02/2024 10:31 AM EST) Cholesterol 141 0 - 200 mg/dL LAB CHEMISTRY METHOD 07/02/2024 3:03 PM EST [facility] Triglycerides 163(H) 0 - 150 mg/dL LAB CHEMISTRY METHOD 07/02/2024 3:03 PM EST [facility] HDL 52 >=40 mg/dL LAB CHEMISTRY METHOD 07/02/2024 3:03 PM EST [facility] LDL Calculated 56 0 - 100 mg/dL LAB CHEMISTRY METHOD 07/02/2024 3:03 PM EST [facility] VLDL Cholesterol Adrián 32.6 mg/dL LAB CHEMISTRY METHOD 07/02/2024 3:03 PM EST [facility] Non HDL Chol. (LDL+VLDL) 89 <145 mg/dL LAB CHEMISTRY METHOD 07/02/2024 3:03 PM EST [facility] Chol/HDL Ratio 2.7 0.0 - 4.4 LAB CHEMISTRY METHOD 07/02/2024 3:03 PM EST [facility] Blood Venous blood specimen / Unknown Venipuncture / Unknown 07/02/2024 10:31 AM EST 07/02/2024 10:31 AM EST Margarito OLVERA LAB BLOOD ORDERABLES Lorna l Result [facility] [address] [place] [address], * Falls Risk Assessment (05/14/2024) Falls Risk Assessment Abstracted us Historical Provider HEALTH MAINTENANCE Final Result * Depression Screening (05/14/2024) Pathologist [facility] Depression Screening Abstracted Historical Provider HEALTH MAINTENANCE Final Result * Colonoscopy (12/27/2023) Pathologist [facility] Colonoscopy Abstracted, No interpretation Anatomical Region Laterality Modality Other Historical Provider HEALTH MAINTENANCE Final Result * Hepatitis C Screening (04/23/2013) Pathologist [facility] Hepatitis C Screening Abstracted Historical Provider HEALTH MAINTENANCE Final Result from Last 3 Months or Most Recently Relevant to Health [place] [address] MEDICARE [facility] Care Teams [employer] Professor Relationship Specialty Start Date End Date Margarito Armstrong PA [address] [place] [address] PCP - General Internal Medicine 05/11/21
--- NOTE | 2025-07-01 08:32 | MHC.OFFVIS ---
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: No Accompanied by: Self / Same As Patient Allergies No Known Allergies Allergy (Verified 06/05/25 09:16) Medication List - Last Reconciled 07/01/25 by Eric Hickman MD albuterol sulfate 90 mcg/actuation inhalation atorvastatin 20 mg PO DAILY famotidine 40 mg PO BID fexofenadine 180 mg PO DAILY fluticasone propion-salmeterol 500-50 mcg/dose (Wixela Inhub) 1 inh inhalation BID fluticasone propionate 50 mcg/actuation sprays intranasal montelukast 10 mg PO DAILY pantoprazole 40 mg PO BID valsartan 40 mg PO DAILY HPI Comments Details: The patient is a 74 year old individual presenting for evaluation of chronic shortness of breath. The patient has experienced dyspnea for several years, which occurs with exertion such as walking. The patient uses two types of inhalers, including one for emergencies. A prior evaluation by a electric motor controls assembler determined the patient's lungs were okay. The patient also reports experiencing occasional, random chest pains, along with sensations of weight or pressure in the chest, primarily at nighttime. The patient has no personal history of myocardial infarction or cardiac stents. The patient's medical history includes hypercholesterolemia, for which the patient takes medication. The patient recently started taking medication for hypertension for the first time approximately two weeks ago, after having blood pressure readings on the high side. The patient denies a history of diabetes or known sleep apnea. [facility] Medical History (Updated 07/01/25 @ 09:05 by Eric Hickman MD) Hyperlipidemia Primary hypertension Family History (Updated 07/01/25 @ 08:37 by Vanessa Espitia CMA) Mother No problems noted. Father No problems noted. Social History (Updated 07/01/25 @ 08:37 by Vanessa Espitia CMA) Alcohol intake: current Alcohol intake frequency: holidays/special occasions only Patient Tobacco Use Status: Former Tobacco user Years Smoked: quit smoking in the 's Review of Systems Const Denies chills, Denies fatigue, Denies fever(s), Denies frequent falls, Denies weakness, Denies weight gain and Denies weight loss ENT Denies dizziness Card Denies chest pain, Denies leg edema, Denies lightheadedness, Denies palpitations, Denies dyspnea, Denies dyspnea on exertion and Denies orthopnea Resp Denies cough, Denies dyspnea and Denies dyspnea on exertion GI Denies bloating and Denies change in bowel habits Musc Denies muscle weakness, Denies numbness and Denies tingling Neuro Denies dizziness, Denies frequent falls, Denies numbness, Denies tingling and Denies weakness Endo Denies fatigue and Denies palpitations Physical Exam Vital Signs: Last Vital Signs Pulse 73 07/01/25 08:34 BP 120/66 07/01/25 08:34 BMI result Body Mass Index 27.7 Const General: comfortable and no acute distress Orientation/consciousness: patient oriented x3 HEENT Other: Unremarkable Head: Yes normal to inspection Neck Neck: Yes normal visual inspection Chest Chest palpation & inspection: normal inspection of the chest Resp Auscultation: clear to auscultation bilaterally Cardio Palpation: normal PMI Heart sounds: S1 normal heart sound present, S2 normal heart sound present, no gallops, no murmurs and no rubs GI Palpation (GI): Soft to palpation Back/Spine/Pelvis Other: unremarkable Skin General skin exam: no rashes or lesions noted Neuro General: patient oriented x3 Extrem General: Yes normal to inspection Psych Mental Status: mental status grossly normal Office Procedures EKG Details: EKG with sinus rhythm at 73/Min; sinus arrhythmia; no ischemic changes; [place] [id number], Complete Assessment & Plan Assessment & Plan (1) Dyspnea on exertion: Code(s): R06.09 - Other forms of dyspnea Category: Medical Plan 1. Chronic Dyspnea The etiology of the patient's long-standing shortness of breath is unclear. Although a electric motor controls assembler previously cleared the patient, a cardiac cause needs to be investigated. Plan includes a heart ultrasound to evaluate cardiac pump function and valves, as well as a stress test to assess for ischemia. 2. Atypical Chest Pain The patient reports random, nocturnal chest pain and pressure sensations. This will be further assessed with the planned cardiac workup. 3. Hypertension The patient recently initiated antihypertensive therapy for the first time. The potential contribution of high blood pressure to the patient's shortness of breath was noted. The patient will continue the new medication. 4. Hypercholesterolemia The patient is managed with medication. No changes were made to the current regimen. Discussion Notes I discussed with the patient that the primary reason for the visit is to investigate the cause of the chronic shortness of breath. I explained that a detailed cardiac evaluation is needed, which will involve a heart ultrasound to assess the heart's pumping function and valves, and a stress test. I also mentioned that high blood pressure itself can sometimes cause shortness of breath. I informed the patient that the results of these tests will provide a clearer understanding of the patient's heart health, and my staff would assist with scheduling these studies. Patient was informed and verbally consented to the use of an ambient scribe for clinic note documentation during this visit. Orders: Orders CA stress test Today R06.09 - Other forms of dyspnea, R07.2 - Precordial pain CA echo transthoracic complete Today R06.09 - Other forms of dyspnea NM cardiolite stress test Today R06.09 - Other forms of dyspnea, R07.2 - Precordial pain Patient Instructions: - We will schedule a few tests to check your heart in more detail. - One test is a heart ultrasound, which looks at how your heart is squeezing and how the valves are working. - You will also have a stress test to get a good idea of your heart's overall condition. - Continue taking your new blood pressure medication as prescribed. - Our office staff will help you schedule these appointments. Coding Level of Care Code New Pt Level 4 (66374) Complex visit Add On G2211 Diagnoses Dyspnea on exertion R06.09 CPT Codes EKG - CPT: 26093-[id number], Complete ([id number])
[2025-07-01 08:34] VITALS: BP 120/66; PULSE 73; BMI 27.7
== END 2025-07-01 08:55 | disposition home or self-care (01) ==
LOC: HO.HCS 08:16
PROVIDERS: PCP Family Medicine; Referring Provider Internal Medicine; Visit Provider Internal Medicine
DX: R06.09 Other forms of dyspnea (principal)
CPT/HCPCS: 93010; 99204; G2211

== ENCOUNTER → 2025-07-01 08:15 | Outpatient (BNVA) | payer MEDICARE, OTHER, SELFPAY | PROVIDERS: PCP Family Medicine; Visit Provider Internal Medicine | DX: R06.09 Other forms of dyspnea (principal); R07.89 Other chest pain; I10 Essential (primary) hypertension; E78.00 Pure hypercholesterolemia, unspecified; Z87.891 Personal history of nicotine dependence | CPT/HCPCS: 93005; 99202 ==